=== PATIENT | female | born 1935 | race Caucasian/White ===

== ENCOUNTER 2016-08-31 06:35 | Inpatient (IN) | payer MEDICARE, OTHER ==
[2016-08-31] MEDS ORDERED: Furosemide 40 MG Tab PO ONE (07:28)
--- NOTE | 2016-08-31 07:32 | EDM.PDOC ---
ED HPI GENERAL MEDICAL PROBLEM - General Chief Complaint: Skin Complaint Stated Complaint: LT LEG EDEMA Time Seen by Provider: 08/31/16 07:00 Source of Information: Reports: Patient, Family History Limitations: Reports: No Limitations - History of Present Illness INITIAL COMMENTS - FREE TEXT/NARRATIVE: c/o eczema of legs with oozing on the L x 2w saw PCP 2w ago, labs done, hgb 8.9 which was down from 10.8 3y ago. Last colonoscopy 02/02 here was neg per pt. INR 3.0 2w ago. 2w ago told to use hand lotion on legs. No change in meds. Inc oozing of L ankle x 2d, sock and shoe are wet. Chronic pain in both feet and ankles. Had CVA 20y ago and has some weakness on L side. 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 here with dtr and son-in-law, pt and dtr from [place] does not know why she is anemic 2w ago had BUN/creat 20/1.8 (c/w 20/0.8 3y ago), TSH 5.8 and free T4 1.2 2w ago , A1C 6.6 2w ago h/o DVT 10y ago, on warfarin ever since - Related Data Allergies Allergy/AdvReac Type Severity Reaction Status Date / Time ciprofloxacin [From Cipro] Allergy Rash Verified 02/27/16 08:09 ciprofloxacin HCl Allergy Rash Verified 02/27/16 08:09 [From Cipro] Home Meds: Home Meds Hydrochlorothiazide 25 mg PO DAILY 02/16/13 [History] Levothyroxine Sodium [Synthroid] 75 mcg PO DAILY 02/16/13 [History] Lisinopril [Prinivil] 40 mg PO DAILY 02/16/13 [History] Multivitamin with Minerals [Multiple Vitamin] 1 tab PO DAILY 02/16/13 [History] Nebivolol [Bystolic] 10 mg PO BID 02/16/13 [History] Pravastatin [Pravachol] 40 mg PO BEDTIME 02/16/13 [History] Triamcinolone Acetonide [Kenalog 0.1% Crm] 15 gm .XX BID PRN 02/16/13 [History] Vit A/Vit C/Vit E/Zinc/Copper [Preservision Areds Softgel] 1 each PO DAILY 02/16 [History] Warfarin [Coumadin] 5 mg PO TUTHSA 02/16/13 [History] amLODIPine [Norvasc] 10 mg PO BID 02/16/13 [History] metFORMIN HCl [Glucophage] 500 mg PO QPM 02/16/13 [History] Fexofenadine [Kim] 60 mg PO DAILY PRN 02/09/14 [History] Warfarin [Coumadin] 2.5 mg PO SUMOWEFR 02/09/14 [History] Gabapentin [Neurontin] 100 mg PO BID PRN 02/27/16 [History] Ketotifen Fumarate [Zaditor] 1 drop OP ASDIRECTED PRN 02/27/16 [History] Calcium Carbonate [Calcium] 600 mg PO BID 02/28/16 [History] Past Medical History HEENT History: Reports: Cataract, Impaired Vision Cardiovascular History: Reports: Blood Clots/VTE/DVT, Heart Murmur, High Cholesterol, Hypertension Respiratory History: Reports: None Gastrointestinal History: Reports: Diverticulosis Genitourinary History: Reports: Urinary Incontinence, Other (See Below) Other Genitourinary History: A&P REPAIR, DYSFUNCTIONAL UTERINE BLEEDING. PERFUMER History: Reports: Dysfunctional Uterine Bleeding, Other OB/BYN History: II PARA II Musculoskeletal History: Reports: Osteoarthritis Neurological History: Reports: CVA Psychiatric History: Reports: None Endocrine/Metabolic History: Reports: Diabetes, Type II, Hypothyroidism, Obesity /BMI 30+ Hematologic History: Reports: Anemia Other Hematologic History: POST SURGICAL FROM [facility] Oncologic (Cancer) History: Reports: None Dermatologic History: Reports: Venous Stasis Dermatitis - Infectious Disease History Infectious Disease History: Reports: Chicken Pox, Measles, Mumps - Past Surgical History Head Surgeries/Procedures: Reports: None HEENT Surgical History: Reports: Cataract Surgery GI Surgical History: Reports: Appendectomy, Cholecystectomy, Colon, Colonoscopy , Hernia, Abdominal, Hernia Repair/Other Female Surgical History: Reports: D&C, Hysterectomy, Oophorectomy, Salpingo- Oophorectomy Social & Family History - Family History Other HEENT Family History: SEE HX - Tobacco Use Smoking Status *Q: Never Smoker Second Hand Smoke Exposure: No - Caffeine Use Caffeine Use: Reports: Coffee - Alcohol Use Days Per Week of Alcohol Use: 0 - Recreational Drug Use Recreational Drug Use: No ED ROS GENERAL - Review of Systems Review Of Systems: See Below Constitutional: Reports: No Symptoms HEENT: Reports: No Symptoms Respiratory: Reports: No Symptoms, Other (denies cough/sob, dtr confirms) Cardiovascular: Reports: No Symptoms Endocrine: Reports: No Symptoms GI/Abdominal: Reports: No Symptoms : Reports: No Symptoms Musculoskeletal: Reports: No Symptoms Skin: Reports: Other (LE edema) Neurological: Reports: No Symptoms Psychiatric: Reports: No Symptoms Hematologic/Lymphatic: Reports: No Symptoms Immunologic: Reports: No Symptoms ED EXAM, SKIN/RASH Exam: See Below Exam Limited By: No Limitations General Appearance: Alert, WD/WN, No Apparent Distress Ears: Hearing Grossly Normal Nose: Normal Inspection, Normal Mucosa, No Blood Throat/Mouth: Normal Inspection, No Airway Compromise Head: Atraumatic, Normocephalic Neck: Normal Inspection, Supple, Non-Tender, Full Range of Motion Respiratory/Chest: Other (slight b/l wheeze b/l, slight dyspnea, no rales, POLINA posteriorly with slight more prominent wheeze on auscultation) Cardiovascular: Other (2-3/6 MARQUITA at LLSB to LUSB, no carotid bruit, no s3/s4, no heave, no mccain murmur) GI/Abdominal: Soft, Non-Tender, No Distention, Other (obese, no CVAT b/l, no dull at flanks) Back Exam: Normal Inspection, Full Range of Motion Extremities: Other (woody edema with slight red from VSD up pre-tib 80% b/l, epidermal scale of LE to knees b/l d/t VSD, slight ooze from L lateral ankle, one drop of clear fluid noted, thinning of skin in 1 x 1 cm area at L ankle c/w with pressure point when sleeping, skin intact, trace DP pulse b/l, dec'd turgor UE with 0.5 sec tenting b/l) Neurological: Alert, Oriented, CN II-XII Intact, Normal Cognition Psychiatric: Normal Affect Course - Vital Signs Last Recorded V/S: Last Vital Signs Temp 36.6 C 08/31/16 06:35 Pulse 75 08/31/16 06:35 Resp 18 08/31/16 06:35 BP 166/67 H 08/31/16 06:35 Pulse Ox 97 08/31/16 06:35 Orthostatic Blood Pressure [ 164/67 Standing] Orthostatic Blood Pressure [ 150/64 Sitting] Orthostatic Blood Pressure [ 154/79 Supine] - Orders/Labs/Meds Orders: Active Orders 24 hr Category Date Time Status EKG Documentation Completion [RC] ASDIRECTED Care 08/31/16 07:27 Active Orthostatic Vital Signs [RC] ASDIRECTED Care 08/31/16 07:32 Active Chest 2V [CR] Stat Exams 08/31/16 07:26 Taken UA W/MICROSCOPIC [URIN] Stat Lab 08/31/16 07:26 Uncollected EKG 12 Lead [EK] Routine Ther 08/31/16 07:27 Ordered Labs: Laboratory Tests 08/31/16 08/31/16 08/31/16 Range/Units 07:45 07:45 07:45 WBC 4.8 (4.5-12.0) X10-3/uL RBC 3.45 (3.23-5.20) x10(6)uL Hgb 9.0 L (11.5-15.5) g/dL Hct 28.0 L (30.0-51.3) % MCV 81.2 (80-96) fL MCH 26.0 L (27.7-33.6) pg MCHC 32.0 L (32.2-35.4) g/dL RDW 18.8 H (11.5-15.5) % Plt Count 294 (125-369) X10(3)uL MPV 7.7 (7.4-10.4) fL Add Manual Diff Yes Neutrophils % (Manual) 68 (46-82) % Band Neutrophils % 1 (0-6) % Lymphocytes % (Manual) 18 (13-37) % Monocytes % (Manual) 13 H (4-12) % Anisocytosis Few PT 21.2 H (8.7-11.1) INR 2.07 H (0.89-1.13) Sodium 129 L (135-145) mmol/L Potassium 4.1 (3.5-5.3) mmol/L Chloride 96 L (100-110) mmol/L Carbon Dioxide 23 (23-29) mmol/L BUN 23 (8-23) mg/dL Creatinine 0.8 (0.6-1.3) mg/dL Est Cr Clr Drug Dosing 44.08 mL/min Estimated GFR (MDRD) > 60 (>60) BUN/Creatinine Ratio 28.8 H (9-20) Glucose 152 H (80-116) mg/dL Calcium 9.3 (8.6-10.2) mg/dL Total Bilirubin 0.6 (0.1-1.3) mg/dL AST 17 D (5-27) IU/L ALT 9 L D (14-26) IU/L Alkaline Phosphatase 68 (56-112) IU/L Troponin I (0.02-0.06) NG/ML C-Reactive Protein 2.3 H (0.0-1.0) mg/dL B-Natriuretic Peptide (0-100) pg/mL Total Protein 8.7 H (6.0-8.0) g/dL Albumin 4.3 (3.2-4.6) g/dL Globulin 4.4 g/dL Albumin/Globulin Ratio 1.0 08/31/16 08/31/16 Range/Units 07:45 07:45 WBC (4.5-12.0) X10-3/uL RBC (3.23-5.20) x10(6)uL Hgb (11.5-15.5) g/dL Hct (30.0-51.3) % MCV (80-96) fL MCH (27.7-33.6) pg MCHC (32.2-35.4) g/dL RDW (11.5-15.5) % Plt Count (125-369) X10(3)uL MPV (7.4-10.4) fL Add Manual Diff Neutrophils % (Manual) (46-82) % Band Neutrophils % (0-6) % Lymphocytes % (Manual) (13-37) % Monocytes % (Manual) (4-12) % Anisocytosis PT (8.7-11.1) INR (0.89-1.13) Sodium (135-145) mmol/L Potassium (3.5-5.3) mmol/L Chloride (100-110) mmol/L Carbon Dioxide (23-29) mmol/L BUN (8-23) mg/dL Creatinine (0.6-1.3) mg/dL Est Cr Clr Drug Dosing mL/min Estimated GFR (MDRD) (>60) BUN/Creatinine Ratio (9-20) Glucose (80-116) mg/dL Calcium (8.6-10.2) mg/dL Total Bilirubin (0.1-1.3) mg/dL AST (5-27) IU/L ALT (14-26) IU/L Alkaline Phosphatase (56-112) IU/L Troponin I < 0.01 L (0.02-0.06) NG/ML C-Reactive Protein (0.0-1.0) mg/dL B-Natriuretic Peptide 784 H (0-100) pg/mL Total Protein (6.0-8.0) g/dL Albumin (3.2-4.6) g/dL Globulin g/dL Albumin/Globulin Ratio Meds: Medications Discontinued Medications Generic Name Dose Route Start Last Admin Trade Name Freq PRN Reason Stop Dose Admin Furosemide 40 mg 08/31/16 07:28 08/31/16 09:22 Lasix PO 08/31/16 07:29 40 mg ONETIME ONE Administration - Re-Assessments/Exams Free Text/Narrative Re-Assessment/Exam: 08/31/16 09:33 last echo 03/03 with EF 60-65%, mild LV diastolic dysfunction, nl LV size. However now with cardiomegaly on CxR and EKG with G's in V1-V3. Inc'd BUN/creat 23/0.8. BN 784 without comparison. Inc'd RP 2.3 c/w LE cellulitis b/l. Na 129 down from 133. RDW 18.8. Pt reports she has lost 50 lbs several yrs ago. Initial PO 97% on RA, however pt was later 89% and O2 begun. Still dyspnea on O2 and using abd muscles to breath. Free Text/Narrative Re-Assessment/Exam: 08/31/16 09:43 d/w Dr Joseph who accepted pt in admission Departure - Departure Time of Disposition: 09:37 Disposition: Admitted As Inpatient 64 Condition: good Clinical Impression: Pulmonary edema, Venous stasis dermatitis of both lower extremities, Cellulitis of both lower extremities, Elevated brain natriuretic peptide (BNP) level, Elevated C-reactive protein (CRP), Microcytic hypochromic anemia, Acute on chronic renal failure, Hypoxia, Acute dyspnea, Anteroseptal myocardial infarction, Hyponatremia Acute exacerbation of congestive heart failure Qualifiers: Congestive heart failure type: combined Qualified Code(s): I50.43 - Acute on chronic combined systolic (congestive) and diastolic (congestive) heart failure - Discharge Information Forms: ED Department Discharge - My Orders Last 24 Hours: My Active Orders 08/31/16 07:26 Chest 2V [CR] Stat UA W/MICROSCOPIC [URIN] Stat 08/31/16 07:27 EKG Documentation Completion [RC] ASDIRECTED EKG 12 Lead [EK] Routine 08/31/16 07:32 Orthostatic Vital Signs [RC] ASDIRECTED - Assessment/Plan Last 24 Hours: My Active Orders 08/31/16 07:26 Chest 2V [CR] Stat UA W/MICROSCOPIC [URIN] Stat 08/31/16 07:27 EKG Documentation Completion [RC] ASDIRECTED EKG 12 Lead [EK] Routine 08/31/16 07:32 Orthostatic Vital Signs [RC] ASDIRECTED
[2016-08-31] MEDS ORDERED: cefTRIAXone 1 GM in Sodium Chloride 0.9% 100 ML IV SCH (10:00)
[2016-08-31] MEDS: Sodium Chloride 0.9% 250 ML IV SCH (10:30)
[2016-08-31] MEDS ORDERED: Sodium Chloride 0.9% 10 ML Syringe FLUSH PRN (13:31)
[2016-08-31] MEDS: Furosemide 40 MG Tab PO SCH (14:20)
--- NOTE | 2016-08-31 18:48 | PCM.HP ---
H&P History of Present Illness - General Date of Service: 08/31/16 Admit Problem/Dx: Admission Diagnosis/Problem Admission Diagnosis/Problem Heart failure Source of Information: Patient, Old Records History Limitations: Reports: No Limitations - History of Present Illness Initial Comments - Free Text/Narative: 81-year-old female brought to because a swelling of the legs and weeping ulcers , especially on the left. Just been seen by a CH[employer]EN [employer] BUTCHER in a local clinic where she was advised to use hydrocortisone which has not helped. The symptoms are going on for just about a week. There's been no fever or chills. In the emergency room, she was noted to be slightly hypoxic, and a chest x-ray revealed some pulmonary edema and features suggestive suggestive of congestive heart failure. She's been admitted for diuresis, wound management, elevation and further disposition. She lives by herself. Notably,she has a history of DVTs and uses [facility]. She has hypertension that is well-controlled. She had a stroke 20 years ago with mild residual symptoms on the left side. Denies any chest pain fever chills or cough. Left Lower Leg Pain Score (Numeric/FACES): 0 - Related Data Allergies/Adverse Reactions: Allergies Allergy/AdvReac Type Severity Reaction Status Date / Time ciprofloxacin [From Cipro] Allergy Rash Verified 02/27/16 08:09 ciprofloxacin HCl Allergy Rash Verified 02/27/16 08:09 [From Cipro] Home Medications: Home Meds Hydrochlorothiazide 25 mg PO DAILY 02/16/13 [History] Levothyroxine Sodium [Synthroid] 75 mcg PO DAILY 02/16/13 [History] Lisinopril [Prinivil] 40 mg PO DAILY 02/16/13 [History] Multivitamin with Minerals [Multiple Vitamin] 1 tab PO DAILY 02/16/13 [History] Nebivolol [Bystolic] 10 mg PO BID 02/16/13 [History] Pravastatin [Pravachol] 40 mg PO BEDTIME 02/16/13 [History] Triamcinolone Acetonide [Kenalog 0.1% Crm] 15 gm .XX BID PRN 02/16/13 [History] Vit A/Vit C/Vit E/Zinc/Copper [Preservision Areds Softgel] 1 each PO DAILY 02/16 [History] Warfarin [Coumadin] 5 mg PO TUTHSA 02/16/13 [History] amLODIPine [Norvasc] 10 mg PO BID 02/16/13 [History] metFORMIN HCl [Glucophage] 500 mg PO QPM 02/16/13 [History] Fexofenadine [Kim] 60 mg PO DAILY PRN 02/09/14 [History] Warfarin [Coumadin] 2.5 mg PO SUMOWEFR 02/09/14 [History] Gabapentin [Neurontin] 100 mg PO BID PRN 02/27/16 [History] Ketotifen Fumarate [Zaditor] 1 drop OP ASDIRECTED PRN 02/27/16 [History] Calcium Carbonate [Calcium] 600 mg PO BID 02/28/16 [History] Past Medical History HEENT History: Reports: Cataract, Impaired Vision Cardiovascular History: Reports: Blood Clots/VTE/DVT, Heart Failure, Heart Murmur, High Cholesterol, Hypertension Respiratory History: Reports: None Gastrointestinal History: Reports: Diverticulosis Genitourinary History: Reports: Urinary Incontinence, Other (See Below) Other Genitourinary History: A&P REPAIR, DYSFUNCTIONAL UTERINE BLEEDING. 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: Dysfunctional Uterine Bleeding, Other OB/BYN History: II PARA II Musculoskeletal History: Reports: Osteoarthritis Neurological History: Reports: CVA Psychiatric History: Reports: None Endocrine/Metabolic History: Reports: Diabetes, Type II, Hypothyroidism, Obesity /BMI 30+ Hematologic History: Reports: Anemia Other Hematologic History: POST SURGICAL FROM [facility] Immunologic History: Reports: None Oncologic (Cancer) History: Reports: None Dermatologic History: Reports: Venous Stasis Dermatitis - Infectious Disease History Infectious Disease History: Reports: Chicken Pox, Measles, Mumps - Past Surgical History Head Surgeries/Procedures: Reports: None HEENT Surgical History: Reports: Cataract Surgery GI Surgical History: Reports: Appendectomy, Cholecystectomy, Colon, Colonoscopy , Hernia, Abdominal, Hernia Repair/Other Female Surgical History: Reports: D&C, Hysterectomy, Oophorectomy, Salpingo- Oophorectomy Social & Family History - Family History Other HEENT Family History: SEE HX - Tobacco Use Smoking Status *Q: Former Smoker Years of Tobacco use: 5 Packs/Tins Daily: 0.2 Used Tobacco, but Quit: Yes Month Tobacco Last Used: 04/20/1969 Second Hand Smoke Exposure: No - Caffeine Use Caffeine Use: Reports: Coffee, Soda - Alcohol Use Days Per Week of Alcohol Use: 0 - Recreational Drug Use Recreational Drug Use: No H&P Review of Systems - Review of Systems: Review Of Systems: ROS reveals no pertinent complaints other than HPI. Exam - Exam Exam: See Below - Vital Signs Vital Signs: Last Vital Signs Temp 98.7 F 08/31/16 15:40 Pulse 65 08/31/16 15:40 Resp 18 08/31/16 15:40 BP 124/58 L 08/31/16 15:40 Pulse Ox 97 08/31/16 15:40 Weight: 93.071 kg - Exam General: Alert, Oriented, 4 HEENT: PERRLA, Hearing Intact, Mucosa Moist & [place], Nares Patent, Normal Nasal Septum, Posterior Pharynx Clear, Conjunctiva Clear, EOMI, EACs Clear, TMs Clear Neck: Supple, Trachea Midline, 2 Lungs: Clear to Auscultation, Normal Respiratory Effort Cardiovascular: Regular Rate, Regular Rhythm, Systolic Murmur Abdomen: Normal Bowel Sounds, Soft (Female) Exam: Normal External Exam, Normal Speculum Exam, Normal Bimanual Exam Rectal (Female) Exam: Deferred Back Exam: Normal Inspection, Full Range of Motion, NT Extremities: Edema Skin: Other (venous stasis dermatitis) Neurological: Cranial Nerves Intact, Reflexes Equal Bilateral Neuro Extensive - Mental Status: Alert, Oriented x3, Normal Mood/Affect, Normal Cognition Neuro Extensive - Motor, Sensory, Reflexes: CN II-XII Intact, Normal Gait, Normal Reflexes Psychiatric: Alert, Normal Affect, Normal Mood - Patient Data Lab Results last 24 hrs: Laboratory Results - last 24 hr 08/31/16 08/31/16 08/31/16 Range/Units 11:20 11:35 17:26 POC Glucose 144 H 112 (80-116) mg/dL Urine Color Yellow (YELLOW) Urine Appearance Clear (CLEAR) Urine pH 6.0 (5.0-6.5) Ur Specific [place] 1.010 (1.010-1.025) Urine Protein Negative (NEGATIVE) mg/dL Urine Glucose (UA) Normal (NEGATIVE) mg/dL Urine Ketones Negative (NEGATIVE) mg/dL Urine Occult Blood Negative (NEGATIVE) Urine Nitrite Negative (NEGATIVE) Urine Bilirubin Negative (NEGATIVE) Urine Urobilinogen Normal (NEGATIVE) mg/dL Ur Leukocyte Esterase Negative (NEGATIVE) Urine RBC Not seen (0) Urine WBC 0-5 (0) Ur Squamous Epith Cells Few H (NS,R,O) Urine Bacteria Not seen (NS) Result Diagrams: 08/31/16 07:45 08/31/16 07:45 EKG INTERPRETATION Rhythm: NSR *Q Meaningful Use (ADM) - VTE *Q VTE Criteria *Q: - Stroke *Q Stroke Criteria *Q: - AMI *Q AMI Criteria *Q: - Problem List (1) CHF (congestive heart failure) SNOMED Code(s): 83553164 ICD Code: I50.9 - HEART FAILURE, UNSPECIFIED Status: Acute Current Visit : Yes Qualifiers: Congestive heart failure type: diastolic Congestive heart failure chronicity: acute on chronic Qualified Code(s): I50.33 - Acute on chronic diastolic (congestive) heart failure (2) Microcytic hypochromic anemia SNOMED Code(s): 10002846 ICD Code: D50.9 - IRON DEFICIENCY ANEMIA, UNSPECIFIED Status: Acute Current Visit: Yes (3) Venous stasis dermatitis of both lower extremities SNOMED Code(s): 33920746 ICD Code: I87.2 - VENOUS INSUFFICIENCY (CHRONIC) (PERIPHERAL) Status: Acute Current Visit: Yes (4) H/O deep venous thrombosis SNOMED Code(s): 554478763 ICD Code: Z86.718 - PERSONAL HISTORY OF OTHER VENOUS THROMBOSIS AND EMBOLISM Status: Chronic Current Visit: Yes (5) retirement (current) use of anticoagulants SNOMED Code(s): 441013258 ICD Code: Z79.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 Status: Acute Current Visit: Yes (6) Diabetes type 2, controlled SNOMED Code(s): 96441161 ICD Code: E11.9 - TYPE 2 DIABETES MELLITUS WITHOUT COMPLICATIONS Status: Acute Current Visit: Yes Qualifiers: Diabetes mellitus complication status: without complication Diabetes mellitus residential insulin use: with residential use Qualified Code(s): E11.9 - Type 2 diabetes mellitus without complications; Z79.4 - 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 (7) HTN (hypertension) SNOMED Code(s): 32691250 ICD Code: I10 - ESSENTIAL (PRIMARY) HYPERTENSION Status: Acute Current Visit: Yes Qualifiers: Hypertension type: essential hypertension Qualified Code(s): I10 - Essential (primary) hypertension Problem List Initiated/Reviewed/Updated: Yes Orders Last 24hrs: Active Orders 24 hr Category Date Time Status Patient Status [ADT] Routine ADT 08/31/16 09:44 Active Cardiac Monitoring [RC] 08,16,00 Care 08/31/16 09:57 Active Communication Order [RC] ROUTINE Care 08/31/16 09:55 Active Daily Weight [Height and Weight] [RC] 06 Care 08/31/16 09:49 Active EKG Documentation Completion [RC] DAILY Care 08/31/16 09:53 Active Glucose [Blood Glucose Check, Bedside] [RC] 07,1130, Care 08/31/16 09:50 Active 1730,21 Intake and Output [RC] 06,14,22 Care 08/31/16 09:50 Active Oxygen Therapy Adult [Oxygen Therapy] [RC] .PRN Care 08/31/16 09:49 Active VTE/DVT Education [RC] Per Unit Routine Care 08/31/16 09:44 Active Vital Signs [RC] 04,08,12,16,20,00 Care 08/31/16 09:44 Active OT Evaluation and Treatment [CONS] Routine Cons 08/31/16 18:43 Active PT Evaluation and Treatment [CONS] Routine Cons 08/31/16 18:43 Active Consistent Carbohydrate Diet [DIET] Diet 08/31/16 Dinner Active Echo Comp wo Cont [US] Routine Exams 09/01/16 09:52 Ordered B-TYPE NATRIURETIC PEPTIDE,BNP [CHEM] AM Lab 09/01/16 05:11 Ordered BASIC METABOLIC PANEL,BMP [CHEM] DAILY Lab 09/01/16 06:00 Ordered BASIC METABOLIC PANEL,BMP [CHEM] DAILY Lab 09/02/16 06:00 Ordered BASIC METABOLIC PANEL,BMP [CHEM] DAILY Lab 09/03/16 06:00 Ordered CBC WITH AUTO DIFF [HEME] DAILY Lab 09/01/16 06:00 Ordered CBC WITH AUTO DIFF [HEME] DAILY Lab 09/02/16 06:00 Ordered CBC WITH AUTO DIFF [HEME] DAILY Lab 09/03/16 06:00 Ordered TROPONIN I [CHEM] Routine Lab 09/01/16 06:00 Ordered Furosemide [Lasix] Med 08/31/16 14:00 Active 40 mg PO BIDDIURETIC Sodium Chloride 0.9% [Normal Saline] 250 ml Med 08/31/16 11:00 Active IV ASDIRECTED Sodium Chloride 0.9% [Saline Flush] Med 08/31/16 13:31 Active 10 ml FLUSH ASDIRECTED PRN cefTRIAXone [Rocephin] 1 gm Med 08/31/16 10:00 Active Sodium Chloride 0.9% [Normal Saline] 100 ml IV Q24H Resuscitation Status Routine Resus Stat 08/31/16 09:44 Ordered EKG 12 Lead [EK] DAILY Ther 08/31/16 09:52 Ordered Medication Orders Furosemide (Lasix) 40 mg PO BIDDIURETIC [place]O Last Admin: 08/31/16 14:20 Dose: 40 mg Ceftriaxone Sodium 1 gm/ (Sodium Chloride) 100 mls @ 200 mls/hr IV Q24H [place]O Last Admin: 08/31/16 10:30 Dose: 200 mls/hr Sodium Chloride (Normal Saline) 250 mls @ 100 mls/hr IV ASDIRECTED [facility] Last Admin: 08/31/16 10:30 Dose: 100 mls/hr Sodium Chloride (Saline Flush) 10 ml FLUSH ASDIRECTED PRN PRN Reason: flush med Assessment/Plan Comment:: The wounds were then wrapped, which would promote edema to improve. We'll resume her home medications, but I do agree with Lasix which has significantly helped since she was admitted. I will plan to repeat basic metabolic profile a BNP in the morning and PT and OT to see her for further disposition. I anticipate a brief hospital stay
[2016-08-31] MEDS ORDERED: Acetaminophen 325 MG Tab PO PRN (21:47)
[2016-09-01 08:36] VITALS: BP 157/69
[2016-09-01] MEDS: Furosemide 40 MG Tab PO SCH (08:37)
[2016-09-01] MEDS ORDERED: cefTRIAXone 1,000 MG in Sodium Chloride 0.9% 50 ML IV SCH (10:00)
[2016-09-01] MEDS: Sodium Chloride 0.9% 250 ML IV SCH (10:07)
--- NOTE | 2016-09-01 12:05 | CR ---
INDICATION: Wheezing, question pulmonary edema. CHEST: AP and lateral views of the chest were obtained in a wheelchair 2016. No comparisons were available. Upper lung field pulmonary vasculature is prominent. Interstitial markings are prominent. Findings suggest CHF with interstitial lung edema. No definite acute pulmonary edema was seen, however. The aorta is tortuous with calcification in the arch. Diminished bone density is noted, compatible with osteoporosis. Prominent AP diameter and flattening of diaphragm leaves with hyperaeration are compatible with COPD. Right hemidiaphragm is somewhat elevated, but this most likely is anatomic. There is some pleural thickening on the right compatible with minimal pleural fluid. Blunting of the left posterior sulcus suggests minimal fluid there. A mild dextroconcave scoliosis at the lower thoracic spine is noted also. IMPRESSION: 1. CHF with interstitial lung edema. No definite evidence of pneumonia. 2. COPD. 3. ASHD with cardiomegaly. 4. Osteoporosis, scoliosis. 5. Somewhat heavy markings at the lower lung gaspar make it difficult to exclude minimal patchy bronchopneumonia additionally, although this appearance could possibly be on the basis of minimal patchy alveolar lung edema - acute pulmonary edema. The typical batwing appearance of acute pulmonary edema is not visualized in this patient at this time. MTDD
--- NOTE | 2016-09-01 12:06 | PN ---
DATE SEEN: 09/01/2016 REASON FOR VISIT: CHF. HISTORY OF PRESENT ILLNESS: An 81-year-old female, who was brought in because of a mild CHF exacerbation, lymphedema, and leg stasis dermatitis. She has lost 5 pounds in the last 24 hours with diuresis. Feels good this morning. Denies fever or chills. Still has pain in both legs and a rash. PAST MEDICAL HISTORY: Anemia, hypertension, type 2 diabetes, CHF, history of DVTs. REVIEW OF SYSTEMS: No chest pain today. No fever or chills. No shortness of breath. PHYSICAL EXAMINATION: VITAL SIGNS: Blood pressure is 157/69, pulse is 68, and temp 98.6. ENT: Negative. CHEST: Clear. CARDIOVASCULAR: Heart murmur 2/6. EXTREMITIES: No peripheral edema. There is venous stasis dermatitis. They are tender to palpation. MENTAL STATUS: Alert. LABORATORY DATA: Hemoglobin today is 8.8. Sodium 134, creatinine is normal. Troponin is less than 0.01 and BNP is 612. IMPRESSION: 1. Mild to moderate congestive heart failure exacerbation. 2. Venous stasis dermatitis of the lower extremities. 3. Hypertension. 4. Type 2 diabetes. 5. Anemia that is chronic. PLAN: My plan is to discharge her home on Lasix 20 mg once a day, and I would like her to see Dr. Fink before the week is over. I do not feel that she has an infection, given no white cell count, fever, and no overt purulent drainage. /[id number] DIANELYS/ANNABEL
--- NOTE | 2016-09-02 03:59 | DISCH ---
DISCHARGE DATE: 09/01/2016 REASON FOR ADMISSION: Congestive heart failure exacerbation, hypertension, type 2 diabetes, venous stasis dermatitis. DISCHARGE DIAGNOSES: Congestive heart failure exacerbation, hypertension, type 2 diabetes, venous stasis dermatitis. BRIEF HISTORY AND HOSPITAL COURSE: An 81-year-old female admitted because of leg swelling, weeping, rash, and edema. She also had a chest x-ray that showed mild pulmonary edema. BNP was 754. She was started on Lasix 40 mg b.i.d. She diuresed significantly and lost 5 pounds in 24 hours. She feels better. The swelling in the legs decreased remarkably. She was discharged today on the on Lasix 40 mg once a day. She is advised to see Dr. Fink before the end of the week, elevate the legs, return to the ED with any worsening of symptoms. Please note that I spent more than 35 minutes in the discharge of this patient. /[id number] DIANELYS/ANNABEL
== END 2016-09-01 11:30 | disposition home or self-care (01) | DRG 299 ==
LOC: FB.ED 06:35 → FB.MS 09:41
PROVIDERS: ADMIT Family Medicine; ATTEND Family Medicine
DX: I50.43 Acute on chronic combined systolic (congestive) and diastolic (congestive) heart failure (principal); L03.115 Cellulitis of right lower limb; L03.116 Cellulitis of left lower limb; N17.9 Acute kidney failure, unspecified; N18.9 Chronic kidney disease, unspecified; R09.02 Hypoxemia; E87.1 Hypo-osmolality and hyponatremia; I87.2 Venous insufficiency (chronic) (peripheral); I50.33 Acute on chronic diastolic (congestive) heart failure; I69.354 Hemiplegia and hemiparesis following cerebral infarction affecting left non-dominant side; I11.0 Hypertensive heart disease with heart failure; E11.9 Type 2 diabetes mellitus without complications; Z79.4 Long term (current) use of insulin; Z86.718 Personal history of other venous thrombosis and embolism; Z79.01 Long term (current) use of anticoagulants; Z79.84 Long term (current) use of oral hypoglycemic drugs; M19.90 Unspecified osteoarthritis, unspecified site; E03.9 Hypothyroidism, unspecified; E78.5 Hyperlipidemia, unspecified; Z87.891 Personal history of nicotine dependence; D64.9 Anemia, unspecified
CPT/HCPCS: 36415; 71020; 80053; 83880; 84484; 85025; 85610; 86140; 93005; 99285 ×2; A9270; 80048; 81001; 82962; J0696; J7030; J7050

== ENCOUNTER 2017-04-28 12:29 | Inpatient (IN) | payer MEDICARE, OTHER ==
--- NOTE | 2017-04-28 12:30 | EDM.PDOC ---
ED HPI GENERAL MEDICAL PROBLEM - General Chief Complaint: General Stated Complaint: FALL Time Seen by Provider: 04/28/17 12:10 Source of Information: Reports: Patient, Old Records History Limitations: Reports: No Limitations - History of Present Illness INITIAL COMMENTS - FREE TEXT/NARRATIVE: Cara comes to [facility] ED by EMS following an incident at home this am when she attempted to get off the comode and fell backward back onto the comode, to weak to resume activity. She used her LifeLine to summon help and arrived at the ED with stable VS, and emotionally shaken by the incident. 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 She has a son and daughter in law who live in the area. - Related Data Allergies Allergy/AdvReac Type Severity Reaction Status Date / Time ciprofloxacin [From Cipro] Allergy Rash Verified 09/01/16 10:04 ciprofloxacin HCl Allergy Rash Verified 09/01/16 10:04 [From Cipro] Home Meds: Home Meds Hydrochlorothiazide 25 mg PO DAILY 02/16/13 [History] Lisinopril [Prinivil] 40 mg PO DAILY 02/16/13 [History] Multivitamin with Minerals [Multiple Vitamin] 1 tab PO DAILY 02/16/13 [History] Nebivolol [Bystolic] 10 mg PO BID 02/16/13 [History] Pravastatin [Pravachol] 40 mg PO BEDTIME 02/16/13 [History] Triamcinolone Acetonide [Kenalog 0.1% Crm] 15 gm .XX BID PRN 02/16/13 [History] Vit A/Vit C/Vit E/Zinc/Copper [Preservision Areds Softgel] 1 each PO PCLUNCH [History] Warfarin [Coumadin] 5 mg PO SUTUTH 02/16/13 [History] amLODIPine [Norvasc] 10 mg PO PCLUNCH 02/16/13 [History] metFORMIN HCl [Glucophage] 500 mg PO QPM 02/16/13 [History] Fexofenadine [Kim] 60 mg PO DAILY PRN 02/09/14 [History] Warfarin [Coumadin] 2.5 mg PO MOWEFRSA 02/09/14 [History] Gabapentin [Neurontin] 100 mg PO BID PRN 02/27/16 [History] Ketotifen Fumarate [Zaditor] 1 drop EYEBOTH BID PRN 02/27/16 [History] Calcium Carbonate [Calcium] 600 mg PO BID@12,18 02/28/16 [History] Furosemide [Lasix] 40 mg PO DAILY #15 tablet 09/01/16 [Rx] Levothyroxine [Synthroid] 88 mcg PO ACBREAKFAST 09/01/16 [History] Past Medical History HEENT History: Reports: Cataract, Impaired Vision Cardiovascular History: Reports: Blood Clots/VTE/DVT, Heart Failure, Heart Murmur, High Cholesterol, Hypertension Respiratory History: Reports: None Gastrointestinal History: Reports: Diverticulosis Genitourinary History: Reports: Urinary Incontinence, Other (See Below) Other Genitourinary History: A&P REPAIR, DYSFUNCTIONAL UTERINE BLEEDING. INSURANCE ATTORNEY History: Reports: Dysfunctional Uterine Bleeding, Other OB/BYN History: II PARA II Musculoskeletal History: Reports: Osteoarthritis Neurological History: Reports: CVA Psychiatric History: Reports: None Endocrine/Metabolic History: Reports: Diabetes, Type II, Hypothyroidism, Obesity /BMI 30+ Hematologic History: Reports: Anemia Other Hematologic History: POST SURGICAL FROM DUB Immunologic History: Reports: None Oncologic (Cancer) History: Reports: None Dermatologic History: Reports: Venous Stasis Dermatitis - Infectious Disease History Infectious Disease History: Reports: Chicken Pox, Measles, Mumps - Past Surgical History Head Surgeries/Procedures: Reports: None HEENT Surgical History: Reports: Cataract Surgery GI Surgical History: Reports: Appendectomy, Cholecystectomy, Colon, Colonoscopy , Hernia, Abdominal, Hernia Repair/Other Female Surgical History: Reports: D&C, Hysterectomy, Oophorectomy, Salpingo- Oophorectomy Social & Family History - Family History Other HEENT Family History: SEE HX - Tobacco Use Smoking Status *Q: Former Smoker Years of Tobacco use: 5 Packs/Tins Daily: 0.2 Used Tobacco, but Quit: Yes Month Tobacco Last Used: 04/20/1969 Second Hand Smoke Exposure: No - Caffeine Use Caffeine Use: Reports: Coffee, Soda - Alcohol Use Days Per Week of Alcohol Use: 0 - Recreational Drug Use Recreational Drug Use: No ED ROS GENERAL - Review of Systems Review Of Systems: See Below Constitutional: Reports: Weakness, Fatigue HEENT: Reports: No Symptoms Respiratory: Reports: No Symptoms Cardiovascular: Reports: No Symptoms Endocrine: Reports: Fatigue GI/Abdominal: Reports: No Symptoms : Reports: No Symptoms Musculoskeletal: Reports: Leg Pain (both legs) Skin: Reports: Other (chronic swelling in both legs) Neurological: Reports: Difficulty Walking, Weakness Psychiatric: Reports: Anxiety Hematologic/Lymphatic: Reports: No Symptoms Immunologic: Reports: No Symptoms ED EXAM, GENERAL - Physical Exam Exam: See Below Exam Limited By: No Limitations General Appearance: Alert, WD/WN, No Apparent Distress, Anxious Eye Exam: Bilateral Eye: EOMI, Normal Inspection, PERRL Ears: Normal External Exam, Hearing Grossly Normal Nose: Normal Inspection Throat/Mouth: Normal Inspection, Normal Oropharynx, Normal Voice, No Airway Compromise Head: Atraumatic, Normocephalic Neck: Normal Inspection, Supple, Non-Tender, Full Range of Motion Respiratory/Chest: No Respiratory Distress, No Accessory Muscle Use, Chest Non- Tender, Decreased Breath Sounds, Rales (basilar) Cardiovascular: Regular Rate, Rhythm, No JVD GI/Abdominal: Normal Bowel Sounds, Soft, Non-Tender, No Organomegaly, No Distention, No Mass (Female) Exam: Deferred Rectal (Female) Exam: Deferred Extremities: Normal Inspection, Normal Range of Motion, Non-Tender, Pedal Edema (brawny edema of both legs to upper calves) Neurological: Alert, Oriented, CN II-XII Intact, Normal Cognition, Other ( weakness, suggestive of deconditioning) Psychiatric: Anxious Skin Exam: Intact, Other (chronic edema with stasis changes) Lymphatic: No Adenopathy Course - Vital Signs Text/Narrative:: Following assessment at the [facility] ED, screening labs included: Hgb 8.4 gm, WBC 4, 000, plts nl; Na 133, K 3.9; BUN 37, Cr 1.4, GFR 36; HgbA1c 7.2%; nonFBS 216; BNP 8130 today (612 on 08/30/16); chest x ray: cardiac enlargement with some interstitial edema; case discussed with Hospitalist and she will be admitted. Last Recorded V/S: Last Vital Signs Temp 36.7 C 04/28/17 11:45 Pulse 73 04/28/17 11:45 Resp 16 04/28/17 11:45 BP 104/41 L 04/28/17 11:45 Pulse Ox 97 04/28/17 11:45 - Orders/Labs/Meds Orders: Active Orders 24 hr Category Date Time Status Chest 1V Frontal [CR] Stat Exams 04/28/17 13:29 Taken Labs: Laboratory Tests 04/28/17 04/28/17 04/28/17 Range/Units 12:30 12:30 12:30 WBC 4.0 L (4.5-12.0) X10-3/uL RBC 3.20 L (3.23-5.20) x10(6)uL Hgb 8.4 L (11.5-15.5) g/dL Hct 26.3 L (30.0-51.3) % MCV 82.0 (80-96) fL MCH 26.2 L (27.7-33.6) pg MCHC 31.9 L (32.2-35.4) g/dL RDW 15.4 (11.5-15.5) % Plt Count 197 (125-369) X10(3)uL MPV 7.6 (7.4-10.4) fL Neut % (Auto) 63.5 (46-82) % Lymph % (Auto) 16.1 (13-37) % [place] % (Auto) 19.3 H (4-12) % Eos % (Auto) 1 (1.0-5.0) % Baso % (Auto) 0 (0-2) % Neut # (Auto) 2.6 (1.6-8.3) # Lymph # (Auto) 0.6 (0.6-5.0) # [place] # (Auto) 0.8 (0.0-1.3) # Eos # (Auto) 0.0 (0.0-0.8) # Baso # (Auto) 0.0 (0.0-0.2) # PT 21.1 H (8.7-11.1) INR 2.06 H (0.89-1.13) Sodium 133 L (135-145) mmol/L Potassium 3.9 (3.5-5.3) mmol/L Chloride 97 L (100-110) mmol/L Carbon Dioxide 26 (21-32) mmol/L BUN 37 H (7-18) mg/dL Creatinine 1.4 H (0.55-1.02) mg/dL Est Cr Clr Drug Dosing 26.29 mL/min Estimated GFR (MDRD) 36 L (>60) BUN/Creatinine Ratio 26.4 H (9-20) Glucose 216 H (80-116) mg/dL Hemoglobin A1c (4.5-6.2) % Calcium 8.7 (8.6-10.2) mg/dL Total Bilirubin 0.5 (0.1-1.3) mg/dL AST 30 H (5-25) IU/L ALT 18 (12-36) U/L Alkaline Phosphatase 62 (56-112) IU/L NT-Pro-B Natriuret Pep (<=450) pg/mL Total Protein 7.1 (6.0-8.0) g/dL Albumin 2.8 L (3.2-4.6) g/dL Globulin 4.3 g/dL Albumin/Globulin Ratio 0.7 Urine Color (YELLOW) Urine Appearance (CLEAR) Urine pH (5.0-6.5) Ur Specific [place] (1.010-1.025) Urine Protein (NEGATIVE) mg/dL Urine Glucose (UA) (NEGATIVE) mg/dL Urine Ketones (NEGATIVE) mg/dL Urine Occult Blood (NEGATIVE) Urine Nitrite (NEGATIVE) Urine Bilirubin (NEGATIVE) Urine Urobilinogen (NEGATIVE) mg/dL Ur Leukocyte Esterase (NEGATIVE) Urine RBC (0) Urine WBC (0) Ur Squamous Epith Cells (NS,R,O) Urine Bacteria (NS) Fine Granular Casts (NS) Coarse Granular Casts (NS) 04/28/17 04/28/17 04/28/17 Range/Units 12:30 12:30 13:26 WBC (4.5-12.0) X10-3/uL RBC (3.23-5.20) x10(6)uL Hgb (11.5-15.5) g/dL Hct (30.0-51.3) % MCV (80-96) fL MCH (27.7-33.6) pg MCHC (32.2-35.4) g/dL RDW (11.5-15.5) % Plt Count (125-369) X10(3)uL MPV (7.4-10.4) fL Neut % (Auto) (46-82) % Lymph % (Auto) (13-37) % [place] % (Auto) (4-12) % Eos % (Auto) (1.0-5.0) % Baso % (Auto) (0-2) % Neut # (Auto) (1.6-8.3) # Lymph # (Auto) (0.6-5.0) # [place] # (Auto) (0.0-1.3) # Eos # (Auto) (0.0-0.8) # Baso # (Auto) (0.0-0.2) # PT (8.7-11.1) INR (0.89-1.13) Sodium (135-145) mmol/L Potassium (3.5-5.3) mmol/L Chloride (100-110) mmol/L Carbon Dioxide (21-32) mmol/L BUN (7-18) mg/dL Creatinine (0.55-1.02) mg/dL Est Cr Clr Drug Dosing mL/min Estimated GFR (MDRD) (>60) BUN/Creatinine Ratio (9-20) Glucose (80-116) mg/dL Hemoglobin A1c 7.2 H (4.5-6.2) % Calcium (8.6-10.2) mg/dL Total Bilirubin (0.1-1.3) mg/dL AST (5-25) IU/L ALT (12-36) U/L Alkaline Phosphatase (56-112) IU/L NT-Pro-B Natriuret Pep 8130 H* (<=450) pg/mL Total Protein (6.0-8.0) g/dL Albumin (3.2-4.6) g/dL Globulin g/dL Albumin/Globulin Ratio Urine Color Yellow (YELLOW) Urine Appearance Clear (CLEAR) Urine pH 5.0 (5.0-6.5) Ur Specific [place] 1.010 (1.010-1.025) Urine Protein Negative (NEGATIVE) mg/dL Urine Glucose (UA) Normal (NEGATIVE) mg/dL Urine Ketones Negative (NEGATIVE) mg/dL Urine Occult Blood Negative (NEGATIVE) Urine Nitrite Negative (NEGATIVE) Urine Bilirubin Negative (NEGATIVE) Urine Urobilinogen Normal (NEGATIVE) mg/dL Ur Leukocyte Esterase Negative (NEGATIVE) Urine RBC 0-5 (0) Urine WBC 0-5 (0) Ur Squamous Epith Cells Few H (NS,R,O) Urine Bacteria Moderate H (NS) Fine Granular Casts Few H (NS) Coarse Granular Casts Few H (NS) Departure - Departure Time of Disposition: 14:12 Disposition: Admitted As Inpatient 64 Condition: Fair Clinical Impression: CHF, Congestive heart failure, Weakness of both lower extremities - Discharge Information Referrals: Samantha Foster BUSINESS INTELLIGENCE REPORTING ANALYST [Primary Care Provider] - Forms: ED Department Discharge - Problem List & Annotations (1) CHF, Congestive heart failure SNOMED Code(s): 69506573 Code(s): I50.9 - HEART FAILURE, UNSPECIFIED Status: Acute Current Visit: Yes Annotation/Comment:: Admit to In Pt - Problem List Review Problem List Initiated/Reviewed/Updated: Yes - My Orders Last 24 Hours: My Active Orders 04/28/17 13:29 Chest 1V Frontal [CR] Stat - Assessment/Plan Last 24 Hours: My Active Orders 04/28/17 13:29 Chest 1V Frontal [CR] Stat Plan: Follow up with PCP.
[2017-04-28] MEDS ORDERED: Zolpidem 5 MG Tab PO PRN (14:58)
[2017-04-28] MEDS ORDERED: Sodium Chloride 0.9% 250 ML IV SCH (16:30)
[2017-04-28] MEDS ORDERED: Furosemide 20 MG/2 ML VIAL IVPUSH ONE (16:31)
[2017-04-28] MEDS ORDERED: LORazepam 0.5 MG Tab PO PRN (16:33)
--- NOTE | 2017-04-28 16:46 | PCM.HP ---
H&P History of Present Illness - General Date of Service: 04/28/17 Source of Information: Patient, Old Records, Provider History Limitations: Reports: No Limitations - History of Present Illness Initial Comments - Free Text/Narative: Patient patient presents to the ER via ambulance after she went to the restroom using her walker and while trying to get off the commode she had weakness in her legs and fell back down on the commode. She denied any loss of consciousness. She denies any lightheadedness or vertigo. She simply did not have the strength in her legs to get back up. Prior to going to the bathroom she had went to the kitchen after getting up from bed to have a couple pieces of toast and coffee as she was not feeling well at that time either. She lives alone at home but does have [facility]. She's had numerous falls in the past and is scared to be home alone any longer. She denies any pain or injury. She tells me she has not been febrile, denies any ill contacts or recent medication changes. She denies any nausea or vomiting. Denies increase or decrease in oral intake. She denies any chest pain or pressure. She's had no abdominal pain or flank pain loose stools (did have a BM this morning) black or tarry stools other than her usual with iron intake, dysuria, malodorous urine, nor hematuria. She has not noted any epistaxis, petechiae or purpura, unusual joint swelling warmth or tenderness. She has not been wearing her RADHA stockings. She has noted increase in lower extremity edema with warmth. No weeping or oozing. Her PCP is Dr. Aleks Castaneda - Related Data Allergies/Adverse Reactions: Allergies Allergy/AdvReac Type Severity Reaction Status Date / Time ciprofloxacin [From Cipro] Allergy Rash Verified 09/01/16 10:04 ciprofloxacin HCl Allergy Rash Verified 09/01/16 10:04 [From Cipro] Home Medications: Home Meds Hydrochlorothiazide 25 mg PO DAILY 02/16/13 [History] Lisinopril [Prinivil] 40 mg PO DAILY 02/16/13 [History] Multivitamin with Minerals [Multiple Vitamin] 2 tab PO DAILY 02/16/13 [History] Nebivolol [Bystolic] 10 mg PO BID 02/16/13 [History] Pravastatin [Pravachol] 40 mg PO BEDTIME 10/30/13 [History] Triamcinolone Acetonide [Kenalog 0.1% Crm] 15 gm .XX BID PRN 02/16/13 [History] Vit A/Vit C/Vit E/Zinc/Copper [Preservision Areds Softgel] 1 each PO PCLUNCH [History] metFORMIN HCl [Glucophage] 500 mg PO QPM 02/16/13 [History] Warfarin [Coumadin] 2.5 mg PO 1600 02/09/14 [History] Ketotifen Fumarate [Zaditor] 1 drop EYEBOTH BID PRN 02/27/16 [History] Calcium Carbonate [Calcium] 600 mg PO ,18 02/28/16 [History] Furosemide [Lasix] 40 mg PO DAILY #15 tablet 09/01/16 [Rx] Levothyroxine [Synthroid] 88 mcg PO ACBREAKFAST 09/01/16 [History] Ferrous Gluconate 324 mg PO DAILY 04/28/17 [History] amLODIPine [Norvasc] 2.5 mg PO DAILY 04/28/17 [History] Past Medical History HEENT History: Reports: Cataract, Impaired Vision Cardiovascular History: Reports: Blood Clots/VTE/DVT, Heart Failure, Heart Murmur, High Cholesterol, Hypertension Respiratory History: Reports: None Gastrointestinal History: Reports: Diverticulosis Genitourinary History: Reports: Urinary Incontinence, Other (See Below) Other Genitourinary History: A&P REPAIR, DYSFUNCTIONAL UTERINE BLEEDING. 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 History: Reports: Dysfunctional Uterine Bleeding, Other OB/BYN History: II PARA II Musculoskeletal History: Reports: Osteoarthritis Neurological History: Reports: CVA Psychiatric History: Reports: None Endocrine/Metabolic History: Reports: Diabetes, Type II, Hypothyroidism, Obesity /BMI 30+ Hematologic History: Reports: Anemia Other Hematologic History: POST SURGICAL FROM [facility] Immunologic History: Reports: None Oncologic (Cancer) History: Reports: None Dermatologic History: Reports: Venous Stasis Dermatitis - Infectious Disease History Infectious Disease History: Reports: Chicken Pox, Measles, Mumps - Past Surgical History Head Surgeries/Procedures: Reports: None HEENT Surgical History: Reports: Cataract Surgery GI Surgical History: Reports: Appendectomy, Cholecystectomy, Colon, Colonoscopy , Hernia, Abdominal, Hernia Repair/Other Female Surgical History: Reports: D&C, Hysterectomy, Oophorectomy, Salpingo- Oophorectomy Social & Family History - Family History Other HEENT Family History: SEE HX - Tobacco Use Smoking Status *Q: Never Smoker Years of Tobacco use: 5 Packs/Tins Daily: 0.2 Used Tobacco, but Quit: Yes Month Tobacco Last Used: 04/20/1969 Second Hand Smoke Exposure: No - Caffeine Use Caffeine Use: Reports: Coffee Other Caffeine Use: 2 cups a day - Alcohol Use Days Per Week of Alcohol Use: 0 - Recreational Drug Use Recreational Drug Use: No H&P Review of Systems - Review of Systems: Review Of Systems: See Below General: Reports: Malaise, Weakness, Fatigue HEENT: Reports: No Symptoms Pulmonary: Reports: No Symptoms Cardiovascular: Reports: Edema Gastrointestinal: Reports: No Symptoms Genitourinary: Reports: No Symptoms Musculoskeletal: Reports: Shoulder Pain (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 ) Skin: Reports: No Symptoms Psychiatric: Reports: Depression (tearful), Anxiety (significant at this time as this ordeal has her shaken up. ) Neurological: Reports: Pre-Existing Deficit, Weakness (chronic left weakness due to prior stroke. ). Denies: Tremors Hematologic/Lymphatic: Reports: Anemia, Other (warfarin use for hx of DVTs in the past. ) Exam - Exam Exam: See Below - Vital Signs Vital Signs: Vital Signs (72 hours) 04/28/17 04/28/17 11:45 13:56 Temperature [ 98.0 F Oral] Pulse, 73 74 Peripheral [ Left Pulse Oximetry] Respiratory 16 18 Rate Blood Pressure 104/41 L 135/88 [Left Middle Arm] O2 Sat by Pulse 97 92 L Oximetry Weight: 87.407 kg - Exam General: Alert, Oriented, Moderate Distress HEENT: Conjunctiva Clear, Hearing Intact, Pupils Equal Neck: Supple, Trachea Midline. No: JVD, Thyromegaly Lungs: Normal Respiratory Effort, Rales (minimal noted in left lower lobe, otherwise clear throughout.) Cardiovascular: Regular Rate, Regular Rhythm, Systolic Murmur (3-4/6 ruslan radiating throughout precordium). No: Rubs, Gallop/S3, Gallop/S4 GI/Abdominal Exam: Normal Bowel Sounds, Soft, Non-Tender Rectal (Female) Exam: Normal Exam, Normal Rectal Tone. No: Black Stool, Bloody Stool, Decreased Rectal Tone, Fecal Impaction, Hemorrhoids, Mass, Tenderness Back Exam: Normal Inspection. No: CVA Tenderness (R), CVA Tenderness (L), Muscle Spasm Extremities: Increased Warmth, Redness (bilateral ankles to mid shins/mild. edema 2+ with stasis dermatitis. no weeping or open wounds. symetric edema. ) Skin: No: Wound Psychiatric: Labile Mood, Anxious, Depressed - Patient Data Lab Results Last 24 hrs: Laboratory Tests 04/28/17 04/28/17 04/28/17 Range/Units 12:30 12:30 12:30 WBC 4.0 L (4.5-12.0) X10-3/uL RBC 3.20 L (3.23-5.20) x10(6)uL Hgb 8.4 L (11.5-15.5) g/dL Hct 26.3 L (30.0-51.3) % MCV 82.0 (80-96) fL MCH 26.2 L (27.7-33.6) pg MCHC 31.9 L (32.2-35.4) g/dL RDW 15.4 (11.5-15.5) % Plt Count 197 (125-369) X10(3)uL MPV 7.6 (7.4-10.4) fL Neut % (Auto) 63.5 (46-82) % Lymph % (Auto) 16.1 (13-37) % Gosper % (Auto) 19.3 H (4-12) % Eos % (Auto) 1 (1.0-5.0) % Baso % (Auto) 0 (0-2) % Neut # (Auto) 2.6 (1.6-8.3) # Lymph # (Auto) 0.6 (0.6-5.0) # Gosper # (Auto) 0.8 (0.0-1.3) # Eos # (Auto) 0.0 (0.0-0.8) # Baso # (Auto) 0.0 (0.0-0.2) # PT 21.1 H (8.7-11.1) INR 2.06 H (0.89-1.13) Sodium 133 L (135-145) mmol/L Potassium 3.9 (3.5-5.3) mmol/L Chloride 97 L (100-110) mmol/L Carbon Dioxide 26 (21-32) mmol/L BUN 37 H (7-18) mg/dL Creatinine 1.4 H (0.55-1.02) mg/dL Est Cr Clr Drug Dosing 26.29 mL/min Estimated GFR (MDRD) 36 L (>60) BUN/Creatinine Ratio 26.4 H (9-20) Glucose 216 H (80-116) mg/dL Hemoglobin A1c (4.5-6.2) % Calcium 8.7 (8.6-10.2) mg/dL Total Bilirubin 0.5 (0.1-1.3) mg/dL AST 30 H (5-25) IU/L ALT 18 (12-36) U/L Alkaline Phosphatase 62 (56-112) IU/L NT-Pro-B Natriuret Pep (<=450) pg/mL Total Protein 7.1 (6.0-8.0) g/dL Albumin 2.8 L (3.2-4.6) g/dL Globulin 4.3 g/dL Albumin/Globulin Ratio 0.7 TSH, Ultra Sensitive (0.36-3.74) IU/mL Urine Color (YELLOW) Urine Appearance (CLEAR) Urine pH (5.0-6.5) Ur Specific Oxly (1.010-1.025) Urine Protein (NEGATIVE) mg/dL Urine Glucose (UA) (NEGATIVE) mg/dL Urine Ketones (NEGATIVE) mg/dL Urine Occult Blood (NEGATIVE) Urine Nitrite (NEGATIVE) Urine Bilirubin (NEGATIVE) Urine Urobilinogen (NEGATIVE) mg/dL Ur Leukocyte Esterase (NEGATIVE) Urine RBC (0) Urine WBC (0) Ur Squamous Epith Cells (NS,R,O) Urine Bacteria (NS) Fine Granular Casts (NS) Coarse Granular Casts (NS) Blood Type Gel Antibody Screen Crossmatch 04/28/17 04/28/17 04/28/17 Range/Units 12:30 12:30 12:30 WBC (4.5-12.0) X10-3/uL RBC (3.23-5.20) x10(6)uL Hgb (11.5-15.5) g/dL Hct (30.0-51.3) % MCV (80-96) fL MCH (27.7-33.6) pg MCHC (32.2-35.4) g/dL RDW (11.5-15.5) % Plt Count (125-369) X10(3)uL MPV (7.4-10.4) fL Neut % (Auto) (46-82) % Lymph % (Auto) (13-37) % Gosper % (Auto) (4-12) % Eos % (Auto) (1.0-5.0) % Baso % (Auto) (0-2) % Neut # (Auto) (1.6-8.3) # Lymph # (Auto) (0.6-5.0) # Gosper # (Auto) (0.0-1.3) # Eos # (Auto) (0.0-0.8) # Baso # (Auto) (0.0-0.2) # PT (8.7-11.1) INR (0.89-1.13) Sodium (135-145) mmol/L Potassium (3.5-5.3) mmol/L Chloride (100-110) mmol/L Carbon Dioxide (21-32) mmol/L BUN (7-18) mg/dL Creatinine (0.55-1.02) mg/dL Est Cr Clr Drug Dosing mL/min Estimated GFR (MDRD) (>60) BUN/Creatinine Ratio (9-20) Glucose (80-116) mg/dL Hemoglobin A1c 7.2 H (4.5-6.2) % Calcium (8.6-10.2) mg/dL Total Bilirubin (0.1-1.3) mg/dL AST (5-25) IU/L ALT (12-36) U/L Alkaline Phosphatase (56-112) IU/L NT-Pro-B Natriuret Pep 8130 H* (<=450) pg/mL Total Protein (6.0-8.0) g/dL Albumin (3.2-4.6) g/dL Globulin g/dL Albumin/Globulin Ratio TSH, Ultra Sensitive (0.36-3.74) IU/mL Urine Color (YELLOW) Urine Appearance (CLEAR) Urine pH (5.0-6.5) Ur Specific Oxly (1.010-1.025) Urine Protein (NEGATIVE) mg/dL Urine Glucose (UA) (NEGATIVE) mg/dL Urine Ketones (NEGATIVE) mg/dL Urine Occult Blood (NEGATIVE) Urine Nitrite (NEGATIVE) Urine Bilirubin (NEGATIVE) Urine Urobilinogen (NEGATIVE) mg/dL Ur Leukocyte Esterase (NEGATIVE) Urine RBC (0) Urine WBC (0) Ur Squamous Epith Cells (NS,R,O) Urine Bacteria (NS) Fine Granular Casts (NS) Coarse Granular Casts (NS) Blood Type A POSITIVE Gel Antibody Screen Negative Crossmatch See Detail 04/28/17 04/28/17 Range/Units 12:30 13:26 WBC (4.5-12.0) X10-3/uL RBC (3.23-5.20) x10(6)uL Hgb (11.5-15.5) g/dL Hct (30.0-51.3) % MCV (80-96) fL MCH (27.7-33.6) pg MCHC (32.2-35.4) g/dL RDW (11.5-15.5) % Plt Count (125-369) X10(3)uL MPV (7.4-10.4) fL Neut % (Auto) (46-82) % Lymph % (Auto) (13-37) % Gosper % (Auto) (4-12) % Eos % (Auto) (1.0-5.0) % Baso % (Auto) (0-2) % Neut # (Auto) (1.6-8.3) # Lymph # (Auto) (0.6-5.0) # Gosper # (Auto) (0.0-1.3) # Eos # (Auto) (0.0-0.8) # Baso # (Auto) (0.0-0.2) # PT (8.7-11.1) INR (0.89-1.13) Sodium (135-145) mmol/L Potassium (3.5-5.3) mmol/L Chloride (100-110) mmol/L Carbon Dioxide (21-32) mmol/L BUN (7-18) mg/dL Creatinine (0.55-1.02) mg/dL Est Cr Clr Drug Dosing mL/min Estimated GFR (MDRD) (>60) BUN/Creatinine Ratio (9-20) Glucose (80-116) mg/dL Hemoglobin A1c (4.5-6.2) % Calcium (8.6-10.2) mg/dL Total Bilirubin (0.1-1.3) mg/dL AST (5-25) IU/L ALT (12-36) U/L Alkaline Phosphatase (56-112) IU/L NT-Pro-B Natriuret Pep (<=450) pg/mL Total Protein (6.0-8.0) g/dL Albumin (3.2-4.6) g/dL Globulin g/dL Albumin/Globulin Ratio TSH, Ultra Sensitive 6.32 H (0.36-3.74) IU/mL Urine Color Yellow (YELLOW) Urine Appearance Clear (CLEAR) Urine pH 5.0 (5.0-6.5) Ur Specific Oxly 1.010 (1.010-1.025) Urine Protein Negative (NEGATIVE) mg/dL Urine Glucose (UA) Normal (NEGATIVE) mg/dL Urine Ketones Negative (NEGATIVE) mg/dL Urine Occult Blood Negative (NEGATIVE) Urine Nitrite Negative (NEGATIVE) Urine Bilirubin Negative (NEGATIVE) Urine Urobilinogen Normal (NEGATIVE) mg/dL Ur Leukocyte Esterase Negative (NEGATIVE) Urine RBC 0-5 (0) Urine WBC 0-5 (0) Ur Squamous Epith Cells Few H (NS,R,O) Urine Bacteria Moderate H (NS) Fine Granular Casts Few H (NS) Coarse Granular Casts Few H (NS) Blood Type Gel Antibody Screen Crossmatch Result Diagrams: 04/28/17 12:30 04/28/17 12:30 David Results Last 24 hrs: Microbiology 04/28/17 16:00 Stool Occult Blood (DAVID) - Final Stool / Feces - Stool, Formed NEGATIVE OCCULT BLOOD *Q Meaningful Use (ADM) - VTE *Q VTE Criteria *Q: - Stroke *Q Stroke Criteria *Q: - AMI *Q AMI Criteria *Q: - Problem List (1) Complaint of debility and malaise SNOMED Code(s): 653051766 ICD Code: R53.81 - OTHER MALAISE Status: Acute Current Visit: Yes (2) Acute on chronic renal failure SNOMED Code(s): 471888283 ICD Code: N17.9 - ACUTE KIDNEY FAILURE, UNSPECIFIED; N18.9 - CHRONIC KIDNEY DISEASE, UNSPECIFIED Status: Acute Current Visit: Yes (3) Microcytic hypochromic anemia SNOMED Code(s): 47636281 ICD Code: D50.9 - IRON DEFICIENCY ANEMIA, UNSPECIFIED Status: Chronic Current Visit: Yes (4) Weakness of both lower extremities SNOMED Code(s): 4152532 ICD Code: R29.898 - OTH SYMPTOMS AND SIGNS INVOLVING THE MUSCULOSKELETAL SYSTEM Status: Acute Current Visit: Yes (5) CHF, Congestive heart failure SNOMED Code(s): 26118083 ICD Code: I50.9 - HEART FAILURE, UNSPECIFIED Status: Chronic Current Visit: Yes Problem Details: Admit to In Pt (6) Palliative care status SNOMED Code(s): 584892441 ICD Code: Z51.5 - ENCOUNTER FOR PALLIATIVE CARE Status: Acute Current Visit: Yes (7) Elevated brain natriuretic peptide (BNP) level SNOMED Code(s): 882509021 ICD Code: R79.89 - OTHER SPECIFIED ABNORMAL FINDINGS OF BLOOD CHEMISTRY Status: Acute Current Visit: Yes (8) Venous stasis dermatitis of both lower extremities SNOMED Code(s): 96859764 ICD Code: I87.2 - VENOUS INSUFFICIENCY (CHRONIC) (PERIPHERAL) Status: Chronic Current Visit: Yes (9) Hypothyroidism SNOMED Code(s): 69708462 ICD Code: E03.9 - HYPOTHYROIDISM, UNSPECIFIED Status: Chronic Current Visit: Yes (10) H/O deep venous thrombosis SNOMED Code(s): 085974106 ICD Code: Z86.718 - PERSONAL HISTORY OF OTHER VENOUS THROMBOSIS AND EMBOLISM Status: Chronic Current Visit: Yes (11) 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 SNOMED Code(s): 953959925 ICD Code: Z79.01 - [facility] (CURRENT) USE OF ANTICOAGULANTS Status: Acute Current Visit: Yes (12) Diabetes type 2, controlled SNOMED Code(s): 08391968 ICD Code: E11.9 - TYPE 2 DIABETES MELLITUS WITHOUT COMPLICATIONS Status: Chronic Current Visit: Yes Qualifiers: Diabetes mellitus complication status: without complication Diabetes mellitus longterm insulin use: with assistant terminal manager use Qualified Code(s): E11.9 - Type 2 diabetes mellitus without complications; Z79.4 - assistant terminal manager (current) use of insulin (13) HTN (hypertension) SNOMED Code(s): 86847621 ICD Code: I10 - ESSENTIAL (PRIMARY) HYPERTENSION Status: Chronic Current Visit: Yes Qualifiers: Hypertension type: essential hypertension Qualified Code(s): I10 - Essential (primary) hypertension Problem List Initiated/Reviewed/Updated: Yes Orders Last 24hrs: Active Orders 24 hr Category Date Time Status Patient Status [ADT] Routine ADT 04/28/17 14:58 Active Accu Check [Blood Glucose Check, Bedside] [RC] Care 04/28/17 16:34 Ordered WITHMEALSANDBED Bedrest Bedside Commode [RC] ASDIRECTED Care 04/28/17 16:29 Ordered Cardiac Education [RC] Click to Edit Care 04/28/17 14:58 Active Cardiac Monitoring [RC] CONTINUOUS Care 04/28/17 15:02 Active Head of Bed Elevation [RC] ASDIRECTED Care 04/28/17 14:58 Active Height and Weight [RC] DAILY Care 04/28/17 14:58 Active Intake and Output [RC] Q4H Care 04/28/17 15:01 Active Orthostatic Vital Signs [RC] ASDIRECTED Care 04/28/17 14:58 Active Oxygen Therapy [RC] PRN Care 04/28/17 14:58 Active Up With Assistance [RC] ASDIRECTED Care 04/28/17 14:58 Active VTE/DVT Education [RC] Per Unit Routine Care 04/28/17 14:58 Active Vital Signs [RC] Q4H Care 04/28/17 14:58 Active Consult to [facility] Tanner [CONS] Routine Cons 04/28/17 14:58 Active OT Evaluation and Treatment [CONS] Routine Cons 04/28/17 14:58 Active PT Evaluation and Treatment [CONS] Routine Cons 04/28/17 14:58 Active 2 Gram Sodium Diet [DIET] Diet 04/28/17 Dinner Active Fluid Restriction [DIET] Diet 04/28/17 Dinner Active RED BLOOD CELLS LP [BBK] Routine Lab 04/28/17 12:30 Results TYPE AND SCREEN [BBK] Routine Lab 04/28/17 12:30 Results Ferrous Gluconate Med 04/29/17 09:00 Active 324 mg PO DAILY Furosemide [Lasix] Med 04/28/17 16:31 Once 20 mg IVPUSH ONETIME ONE Insulin Aspart [NovoLOG] Med 04/28/17 17:30 Ordered See Protocol SUBCUT QIDACANDBED LORazepam [Ativan] Med 04/28/17 16:33 Ordered 0.5 mg PO Q8H PRN Levothyroxine [Synthroid] Med 04/29/17 06:00 Active 88 mcg PO 0600 Sodium Chloride 0.9% [Normal Saline] 250 ml Med 04/28/17 16:30 Ordered IV ASDIRECTED Warfarin [Coumadin] Med 04/28/17 16:00 Active 2.5 mg PO 1600 Zolpidem [Ambien] Med 04/28/17 14:58 Active 5 mg PO BEDTIME PRN LAMIN Bandage [Elastic Wrap] [OM.PC] Routine Ot 04/28/17 16:28 Ordered CHF Questionnaire [COMM] Routine Oth 04/28/17 14:58 Ordered Transfuse PRBC [Transfuse Red Blood Cells] [COMM] Oth 04/28/17 16:26 Ordered Routine Medication Orders Ferrous Gluconate (Ferrous Gluconate) 324 mg PO DAILY GALILEO Furosemide (Lasix) 20 mg IVPUSH ONETIME ONE Stop: 04/28/17 16:32 Sodium Chloride (Normal Saline) 250 mls @ 100 mls/hr IV ASDIRECTED GALILEO Insulin Aspart (Novolog) 0 unit SUBCUT QIDACANDBED GALILEO PRN Reason: Protocol Levothyroxine Sodium (Synthroid) 88 mcg PO 0600 GALILEO Lorazepam (Ativan) 0.5 mg PO Q8H PRN PRN Reason: Anxiety Warfarin Sodium (Coumadin) 2.5 mg PO 1600 GALILEO Zolpidem Tartrate (Ambien) 5 mg PO BEDTIME PRN PRN Reason: Sleep Assessment/Plan Comment:: going to get orthostatics. hold bp meds for now. no gi bleed so give todays warfarin dose. chronically low h/h i believe bring her up to 9 mg/dL would benefit prognosis. will transfuse 1 unit only. give a dose of lasix after as we are going to mobilize fluid from the legs as well with LAMIN wraps and elevations. caution not to overload the heart. she looks clinically dry rather than wet, so will monitor strict in/outs. accurate weight measurements. chronic venous stasis dermatitis non infective. will monitor. disposition is guarded. she is palliative care status. no longer safe in her own home, and will discuss senior living assessment during stay. will have pt/ot assess her tomorrow afternoon. risks and benefits of blood transfusion was discussed with patient. she has had in the past without complications. consent received. will follow glucose levels and INRs as well. continuous telemetry. ekg without event.
[2017-04-28] MEDS: Warfarin 2.5 MG Tab PO SCH (16:56)
[2017-04-28] MEDS ORDERED: Furosemide 20 MG/2 ML VIAL IVPUSH PRN (17:10)
[2017-04-28] MEDS: Insulin Aspart 100 Units/ML 3 ML Pen SUBCUT SCH ×2 (18:05→21:53)
[2017-04-29] MEDS: Levothyroxine 88 MCG Tab PO SCH (05:57)
[2017-04-29] MEDS: Insulin Aspart 100 Units/ML 3 ML Pen SUBCUT SCH ×4 (06:45→20:52)
--- NOTE | 2017-04-29 08:52 | CR ---
INDICATION: Weakness, high BNP. CHEST: An AP upright view of the chest, 04/28/2017, was compared with 2016 and again reveals the heart to be enlarged, the aorta tortuous and calcified. Overlying snaps are noted. Pulmonary vasculature appears to be prominent, compatible with CHF. Minimal, if any, interstitial lung edema is present. No active infiltrate or effusion was seen. IMPRESSION: Findings are compatible with ASHD, cardiomegaly, with mild to moderate CHF. No definite lung edema identified. MTDD
[2017-04-29] MEDS: Ferrous Gluconate 324 MG Tab PO SCH (09:06)
--- NOTE | 2017-04-29 10:37 | PCM.PN ---
- General Info Date of Service: 04/29/17 Subjective Update: Pleasant 81-year-old female awake lying in bed. Tells me she feels a bit better with regards to no more tremulousness. Still feels weak. No longer pale. She denies headache, tinnitus, blurred vision, nasal congestion or sore throat, no coughing, shortness of breath, chest pain or pressure, abdominal pain, or worsening pain of the lower extremities. She is tolerating the Juancarlos wraps quite well. She has been getting up to the restroom and has made good urine output. She is tolerating her diet. Is less anxious this morning. No overnight events on telemetry. Nursing without concerns. - Related Data Allergies/Adverse Reactions: Allergies Allergy/AdvReac Type Severity Reaction Status Date / Time ciprofloxacin [From Cipro] Allergy Rash Verified 09/01/16 10:04 ciprofloxacin HCl Allergy Rash Verified 09/01/16 10:04 [From Cipro] Prior to admission Home Medications: Home Meds Hydrochlorothiazide 25 mg PO DAILY 02/16/13 [History] Lisinopril [Prinivil] 40 mg PO DAILY 02/16/13 [History] Multivitamin with Minerals [Multiple Vitamin] 2 tab PO DAILY 02/16/13 [History] Nebivolol [Bystolic] 10 mg PO BID 02/16/13 [History] Pravastatin [Pravachol] 40 mg PO BEDTIME 02/16/13 [History] Triamcinolone Acetonide [Kenalog 0.1% Crm] 15 gm .XX BID PRN 02/16/13 [History] Vit A/Vit C/Vit E/Zinc/Copper [Preservision Areds Softgel] 1 each PO PCLUNCH [History] metFORMIN HCl [Glucophage] 500 mg PO QPM 02/16/13 [History] Warfarin [Coumadin] 2.5 mg PO 1600 02/09/14 [History] Ketotifen Fumarate [Zaditor] 1 drop EYEBOTH BID PRN 02/27/16 [History] Calcium Carbonate [Calcium] 600 mg PO 02/28/16 [History] Furosemide [Lasix] 40 mg PO DAILY #15 tablet 09/01/16 [Rx] Levothyroxine [Synthroid] 88 mcg PO ACBREAKFAST 09/01/16 [History] Ferrous Gluconate 324 mg PO DAILY 04/28/17 [History] amLODIPine [Norvasc] 2.5 mg PO DAILY 04/28/17 [History] Functional Status: Reports: Tolerating Diet, Ambulating, Urinating. Denies: New Symptoms - Review of Systems Systems Review Comment:: Please see above for pertinent positives and negatives - Patient Data Vitals - Most Recent: Vital Signs - 8 hr 04/29/17 04/29/17 07:25 10:50 Temperature [ 97.9 F Oral] Pulse, 67 Peripheral Pulse, 67 Peripheral [ Left Pulse Oximetry] Respiratory 20 Rate Blood Pressure 126/62 Blood Pressure 126/62 [Left Upper Arm ] O2 Sat by Pulse 94 L Oximetry Orthostatic Blood Pressure [ 128/60 Standing] Orthostatic Blood Pressure [ 120/56 Sitting] Orthostatic Blood Pressure [ 110/58 Supine] Weight - Most Recent: 86.636 kg I&O - Last 24 Hours: Intake & Output 04/28/17 04/29/17 04/29/17 22:59 06:59 14:59 Intake Total 130 358 Output Total 750 800 Balance -620 -442 Weight on admit: 87.407 kg Weight today: 86.636 kg Total weight loss: 0.771 kg (1.7 pound) Overall urine output since admission roughly 1500 mL Lab Results Last 24 Hours: Laboratory Tests 04/28/17 04/28/17 04/28/17 Range/Units 12:30 12:30 12:30 WBC 4.0 L (4.5-12.0) X10-3/uL RBC 3.20 L (3.23-5.20) x10(6)uL Hgb 8.4 L (11.5-15.5) g/dL Hct 26.3 L (30.0-51.3) % MCV 82.0 (80-96) fL MCH 26.2 L (27.7-33.6) pg MCHC 31.9 L (32.2-35.4) g/dL RDW 15.4 (11.5-15.5) % Plt Count 197 (125-369) X10(3)uL MPV 7.6 (7.4-10.4) fL Neut % (Auto) 63.5 (46-82) % Lymph % (Auto) 16.1 (13-37) % Posey % (Auto) 19.3 H (4-12) % Eos % (Auto) 1 (1.0-5.0) % Baso % (Auto) 0 (0-2) % Neut # (Auto) 2.6 (1.6-8.3) # Lymph # (Auto) 0.6 (0.6-5.0) # Posey # (Auto) 0.8 (0.0-1.3) # Eos # (Auto) 0.0 (0.0-0.8) # Baso # (Auto) 0.0 (0.0-0.2) # PT 21.1 H (8.7-11.1) INR 2.06 H (0.89-1.13) Sodium 133 L (135-145) mmol/L Potassium 3.9 (3.5-5.3) mmol/L Chloride 97 L (100-110) mmol/L Carbon Dioxide 26 (21-32) mmol/L BUN 37 H (7-18) mg/dL Creatinine 1.4 H (0.55-1.02) mg/dL Est Cr Clr Drug Dosing 26.29 mL/min Estimated GFR (MDRD) 36 L (>60) BUN/Creatinine Ratio 26.4 H (9-20) Glucose 216 H (80-116) mg/dL POC Glucose (80-116) mg/dL Hemoglobin A1c (4.5-6.2) % Calcium 8.7 (8.6-10.2) mg/dL Total Bilirubin 0.5 (0.1-1.3) mg/dL AST 30 H (5-25) IU/L ALT 18 (12-36) U/L Alkaline Phosphatase 62 (56-112) IU/L NT-Pro-B Natriuret Pep (<=450) pg/mL Total Protein 7.1 (6.0-8.0) g/dL Albumin 2.8 L (3.2-4.6) g/dL Globulin 4.3 g/dL Albumin/Globulin Ratio 0.7 Vitamin B12 (193-986) pg/mL TSH, Ultra Sensitive (0.36-3.74) IU/mL Urine Color (YELLOW) Urine Appearance (CLEAR) Urine pH (5.0-6.5) Ur Specific Henderson (1.010-1.025) Urine Protein (NEGATIVE) mg/dL Urine Glucose (UA) (NEGATIVE) mg/dL Urine Ketones (NEGATIVE) mg/dL Urine Occult Blood (NEGATIVE) Urine Nitrite (NEGATIVE) Urine Bilirubin (NEGATIVE) Urine Urobilinogen (NEGATIVE) mg/dL Ur Leukocyte Esterase (NEGATIVE) Urine RBC (0) Urine WBC (0) Ur Squamous Epith Cells (NS,R,O) Urine Bacteria (NS) Fine Granular Casts (NS) Coarse Granular Casts (NS) Blood Type Gel Antibody Screen Crossmatch 04/28/17 04/28/17 04/28/17 Range/Units 12:30 12:30 12:30 WBC (4.5-12.0) X10-3/uL RBC (3.23-5.20) x10(6)uL Hgb (11.5-15.5) g/dL Hct (30.0-51.3) % MCV (80-96) fL MCH (27.7-33.6) pg MCHC (32.2-35.4) g/dL RDW (11.5-15.5) % Plt Count (125-369) X10(3)uL MPV (7.4-10.4) fL Neut % (Auto) (46-82) % Lymph % (Auto) (13-37) % Posey % (Auto) (4-12) % Eos % (Auto) (1.0-5.0) % Baso % (Auto) (0-2) % Neut # (Auto) (1.6-8.3) # Lymph # (Auto) (0.6-5.0) # Posey # (Auto) (0.0-1.3) # Eos # (Auto) (0.0-0.8) # Baso # (Auto) (0.0-0.2) # PT (8.7-11.1) INR (0.89-1.13) Sodium (135-145) mmol/L Potassium (3.5-5.3) mmol/L Chloride (100-110) mmol/L Carbon Dioxide (21-32) mmol/L BUN (7-18) mg/dL Creatinine (0.55-1.02) mg/dL Est Cr Clr Drug Dosing mL/min Estimated GFR (MDRD) (>60) BUN/Creatinine Ratio (9-20) Glucose (80-116) mg/dL POC Glucose (80-116) mg/dL Hemoglobin A1c 7.2 H (4.5-6.2) % Calcium (8.6-10.2) mg/dL Total Bilirubin (0.1-1.3) mg/dL AST (5-25) IU/L ALT (12-36) U/L Alkaline Phosphatase (56-112) IU/L NT-Pro-B Natriuret Pep 8130 H* (<=450) pg/mL Total Protein (6.0-8.0) g/dL Albumin (3.2-4.6) g/dL Globulin g/dL Albumin/Globulin Ratio Vitamin B12 (193-986) pg/mL TSH, Ultra Sensitive (0.36-3.74) IU/mL Urine Color (YELLOW) Urine Appearance (CLEAR) Urine pH (5.0-6.5) Ur Specific Henderson (1.010-1.025) Urine Protein (NEGATIVE) mg/dL Urine Glucose (UA) (NEGATIVE) mg/dL Urine Ketones (NEGATIVE) mg/dL Urine Occult Blood (NEGATIVE) Urine Nitrite (NEGATIVE) Urine Bilirubin (NEGATIVE) Urine Urobilinogen (NEGATIVE) mg/dL Ur Leukocyte Esterase (NEGATIVE) Urine RBC (0) Urine WBC (0) Ur Squamous Epith Cells (NS,R,O) Urine Bacteria (NS) Fine Granular Casts (NS) Coarse Granular Casts (NS) Blood Type A POSITIVE Gel Antibody Screen Negative Crossmatch See Detail 04/28/17 04/28/17 04/28/17 Range/Units 12:30 13:26 17:08 WBC (4.5-12.0) X10-3/uL RBC (3.23-5.20) x10(6)uL Hgb (11.5-15.5) g/dL Hct (30.0-51.3) % MCV (80-96) fL MCH (27.7-33.6) pg MCHC (32.2-35.4) g/dL RDW (11.5-15.5) % Plt Count (125-369) X10(3)uL MPV (7.4-10.4) fL Neut % (Auto) (46-82) % Lymph % (Auto) (13-37) % Posey % (Auto) (4-12) % Eos % (Auto) (1.0-5.0) % Baso % (Auto) (0-2) % Neut # (Auto) (1.6-8.3) # Lymph # (Auto) (0.6-5.0) # Posey # (Auto) (0.0-1.3) # Eos # (Auto) (0.0-0.8) # Baso # (Auto) (0.0-0.2) # PT (8.7-11.1) INR (0.89-1.13) Sodium (135-145) mmol/L Potassium (3.5-5.3) mmol/L Chloride (100-110) mmol/L Carbon Dioxide (21-32) mmol/L BUN (7-18) mg/dL Creatinine (0.55-1.02) mg/dL Est Cr Clr Drug Dosing mL/min Estimated GFR (MDRD) (>60) BUN/Creatinine Ratio (9-20) Glucose (80-116) mg/dL POC Glucose 184 H (80-116) mg/dL Hemoglobin A1c (4.5-6.2) % Calcium (8.6-10.2) mg/dL Total Bilirubin (0.1-1.3) mg/dL AST (5-25) IU/L ALT (12-36) U/L Alkaline Phosphatase (56-112) IU/L NT-Pro-B Natriuret Pep (<=450) pg/mL Total Protein (6.0-8.0) g/dL Albumin (3.2-4.6) g/dL Globulin g/dL Albumin/Globulin Ratio Vitamin B12 (193-986) pg/mL TSH, Ultra Sensitive 6.32 H (0.36-3.74) IU/mL Urine Color Yellow (YELLOW) Urine Appearance Clear (CLEAR) Urine pH 5.0 (5.0-6.5) Ur Specific Henderson 1.010 (1.010-1.025) Urine Protein Negative (NEGATIVE) mg/dL Urine Glucose (UA) Normal (NEGATIVE) mg/dL Urine Ketones Negative (NEGATIVE) mg/dL Urine Occult Blood Negative (NEGATIVE) Urine Nitrite Negative (NEGATIVE) Urine Bilirubin Negative (NEGATIVE) Urine Urobilinogen Normal (NEGATIVE) mg/dL Ur Leukocyte Esterase Negative (NEGATIVE) Urine RBC 0-5 (0) Urine WBC 0-5 (0) Ur Squamous Epith Cells Few H (NS,R,O) Urine Bacteria Moderate H (NS) Fine Granular Casts Few H (NS) Coarse Granular Casts Few H (NS) Blood Type Gel Antibody Screen Crossmatch 04/28/17 04/29/17 04/29/17 Range/Units 20:52 09:15 09:15 WBC 2.9 L (4.5-12.0) X10-3/uL RBC 3.55 (3.23-5.20) x10(6)uL Hgb 9.3 L (11.5-15.5) g/dL Hct 29.3 L (30.0-51.3) % MCV 82.6 (80-96) fL MCH 26.3 L (27.7-33.6) pg MCHC 31.8 L (32.2-35.4) g/dL RDW 15.2 (11.5-15.5) % Plt Count 178 (125-369) X10(3)uL MPV (7.4-10.4) fL Neut % (Auto) (46-82) % Lymph % (Auto) (13-37) % Posey % (Auto) (4-12) % Eos % (Auto) (1.0-5.0) % Baso % (Auto) (0-2) % Neut # (Auto) (1.6-8.3) # Lymph # (Auto) (0.6-5.0) # Posey # (Auto) (0.0-1.3) # Eos # (Auto) (0.0-0.8) # Baso # (Auto) (0.0-0.2) # PT (8.7-11.1) INR (0.89-1.13) Sodium 135 (135-145) mmol/L Potassium 3.4 L (3.5-5.3) mmol/L Chloride 98 L (100-110) mmol/L Carbon Dioxide 28 (21-32) mmol/L BUN 28 H (7-18) mg/dL Creatinine 1.3 H (0.55-1.02) mg/dL Est Cr Clr Drug Dosing 28.31 mL/min Estimated GFR (MDRD) 39 L (>60) BUN/Creatinine Ratio 21.5 H (9-20) Glucose 236 H (80-116) mg/dL POC Glucose 201 H (80-116) mg/dL Hemoglobin A1c (4.5-6.2) % Calcium 8.9 (8.6-10.2) mg/dL Total Bilirubin (0.1-1.3) mg/dL AST (5-25) IU/L ALT (12-36) U/L Alkaline Phosphatase (56-112) IU/L NT-Pro-B Natriuret Pep (<=450) pg/mL Total Protein (6.0-8.0) g/dL Albumin (3.2-4.6) g/dL Globulin g/dL Albumin/Globulin Ratio Vitamin B12 (193-986) pg/mL TSH, Ultra Sensitive (0.36-3.74) IU/mL Urine Color (YELLOW) Urine Appearance (CLEAR) Urine pH (5.0-6.5) Ur Specific Henderson (1.010-1.025) Urine Protein (NEGATIVE) mg/dL Urine Glucose (UA) (NEGATIVE) mg/dL Urine Ketones (NEGATIVE) mg/dL Urine Occult Blood (NEGATIVE) Urine Nitrite (NEGATIVE) Urine Bilirubin (NEGATIVE) Urine Urobilinogen (NEGATIVE) mg/dL Ur Leukocyte Esterase (NEGATIVE) Urine RBC (0) Urine WBC (0) Ur Squamous Epith Cells (NS,R,O) Urine Bacteria (NS) Fine Granular Casts (NS) Coarse Granular Casts (NS) Blood Type Gel Antibody Screen Crossmatch 04/29/17 04/29/17 04/29/17 Range/Units 09:15 09:15 09:15 WBC (4.5-12.0) X10-3/uL RBC (3.23-5.20) x10(6)uL Hgb (11.5-15.5) g/dL Hct (30.0-51.3) % MCV (80-96) fL MCH (27.7-33.6) pg MCHC (32.2-35.4) g/dL RDW (11.5-15.5) % Plt Count (125-369) X10(3)uL MPV (7.4-10.4) fL Neut % (Auto) (46-82) % Lymph % (Auto) (13-37) % Posey % (Auto) (4-12) % Eos % (Auto) (1.0-5.0) % Baso % (Auto) (0-2) % Neut # (Auto) (1.6-8.3) # Lymph # (Auto) (0.6-5.0) # Posey # (Auto) (0.0-1.3) # Eos # (Auto) (0.0-0.8) # Baso # (Auto) (0.0-0.2) # PT 22.4 H (8.7-11.1) INR 2.18 H (0.89-1.13) Sodium (135-145) mmol/L Potassium (3.5-5.3) mmol/L Chloride (100-110) mmol/L Carbon Dioxide (21-32) mmol/L BUN (7-18) mg/dL Creatinine (0.55-1.02) mg/dL Est Cr Clr Drug Dosing mL/min Estimated GFR (MDRD) (>60) BUN/Creatinine Ratio (9-20) Glucose (80-116) mg/dL POC Glucose (80-116) mg/dL Hemoglobin A1c (4.5-6.2) % Calcium (8.6-10.2) mg/dL Total Bilirubin (0.1-1.3) mg/dL AST (5-25) IU/L ALT (12-36) U/L Alkaline Phosphatase (56-112) IU/L NT-Pro-B Natriuret Pep 32648 H* (<=450) pg/mL Total Protein (6.0-8.0) g/dL Albumin (3.2-4.6) g/dL Globulin g/dL Albumin/Globulin Ratio Vitamin B12 685 (193-986) pg/mL TSH, Ultra Sensitive (0.36-3.74) IU/mL Urine Color (YELLOW) Urine Appearance (CLEAR) Urine pH (5.0-6.5) Ur Specific Henderson (1.010-1.025) Urine Protein (NEGATIVE) mg/dL Urine Glucose (UA) (NEGATIVE) mg/dL Urine Ketones (NEGATIVE) mg/dL Urine Occult Blood (NEGATIVE) Urine Nitrite (NEGATIVE) Urine Bilirubin (NEGATIVE) Urine Urobilinogen (NEGATIVE) mg/dL Ur Leukocyte Esterase (NEGATIVE) Urine RBC (0) Urine WBC (0) Ur Squamous Epith Cells (NS,R,O) Urine Bacteria (NS) Fine Granular Casts (NS) Coarse Granular Casts (NS) Blood Type Gel Antibody Screen Crossmatch 04/29/17 Range/Units 11:23 WBC (4.5-12.0) X10-3/uL RBC (3.23-5.20) x10(6)uL Hgb (11.5-15.5) g/dL Hct (30.0-51.3) % MCV (80-96) fL MCH (27.7-33.6) pg MCHC (32.2-35.4) g/dL RDW (11.5-15.5) % Plt Count (125-369) X10(3)uL MPV (7.4-10.4) fL Neut % (Auto) (46-82) % Lymph % (Auto) (13-37) % Posey % (Auto) (4-12) % Eos % (Auto) (1.0-5.0) % Baso % (Auto) (0-2) % Neut # (Auto) (1.6-8.3) # Lymph # (Auto) (0.6-5.0) # Posey # (Auto) (0.0-1.3) # Eos # (Auto) (0.0-0.8) # Baso # (Auto) (0.0-0.2) # PT (8.7-11.1) INR (0.89-1.13) Sodium (135-145) mmol/L Potassium (3.5-5.3) mmol/L Chloride (100-110) mmol/L Carbon Dioxide (21-32) mmol/L BUN (7-18) mg/dL Creatinine (0.55-1.02) mg/dL Est Cr Clr Drug Dosing mL/min Estimated GFR (MDRD) (>60) BUN/Creatinine Ratio (9-20) Glucose (80-116) mg/dL POC Glucose 191 H (80-116) mg/dL Hemoglobin A1c (4.5-6.2) % Calcium (8.6-10.2) mg/dL Total Bilirubin (0.1-1.3) mg/dL AST (5-25) IU/L ALT (12-36) U/L Alkaline Phosphatase (56-112) IU/L NT-Pro-B Natriuret Pep (<=450) pg/mL Total Protein (6.0-8.0) g/dL Albumin (3.2-4.6) g/dL Globulin g/dL Albumin/Globulin Ratio Vitamin B12 (193-986) pg/mL TSH, Ultra Sensitive (0.36-3.74) IU/mL Urine Color (YELLOW) Urine Appearance (CLEAR) Urine pH (5.0-6.5) Ur Specific Henderson (1.010-1.025) Urine Protein (NEGATIVE) mg/dL Urine Glucose (UA) (NEGATIVE) mg/dL Urine Ketones (NEGATIVE) mg/dL Urine Occult Blood (NEGATIVE) Urine Nitrite (NEGATIVE) Urine Bilirubin (NEGATIVE) Urine Urobilinogen (NEGATIVE) mg/dL Ur Leukocyte Esterase (NEGATIVE) Urine RBC (0) Urine WBC (0) Ur Squamous Epith Cells (NS,R,O) Urine Bacteria (NS) Fine Granular Casts (NS) Coarse Granular Casts (NS) Blood Type Gel Antibody Screen Crossmatch David Results Last 24 Hours: Microbiology 04/28/17 16:00 Stool Occult Blood (DAVID) - Final Stool / Feces - Stool, Formed NEGATIVE OCCULT BLOOD Med Orders - Current: Current Medications Ferrous Gluconate (Ferrous Gluconate) 324 mg PO DAILY [facility] Last Admin: 04/29/17 09:06 Dose: 324 mg Furosemide (Lasix) 20 mg IVPUSH ONETIME PRN PRN Reason: Edema Furosemide (Lasix) 40 mg PO DAILY [facility] Glimepiride (Glimepiride) 1 mg PO WITHBREAKFAST [facility] Sodium Chloride (Normal Saline) 250 mls @ 100 mls/hr IV ASDIRECTED [facility] Insulin Aspart (Novolog) 0 unit SUBCUT QIDACANDBED [facility] PRN Reason: Protocol Last Admin: 04/29/17 06:45 Dose: Not Given Levothyroxine Sodium (Synthroid) 88 mcg PO 0600 [facility] Last Admin: 04/29/17 05:57 Dose: 88 mcg Lisinopril (Prinivil) 20 mg PO DAILY [facility] Lorazepam (Ativan) 0.5 mg PO Q8H PRN PRN Reason: Anxiety Nebivolol (Bystolic) 10 mg PO DAILY [facility] Warfarin Sodium (Coumadin) 2.5 mg PO 1600 [facility] Last Admin: 04/28/17 16:56 Dose: 2.5 mg Zolpidem Tartrate (Ambien) 5 mg PO BEDTIME PRN PRN Reason: Sleep Discontinued Medications Furosemide (Lasix) 20 mg IVPUSH ONETIME ONE Stop: 04/28/17 16:32 Last Admin: 04/28/17 16:57 Dose: 20 mg - Exam Physical Findings Comments:: General: Alert, Oriented, no distress HEENT: Conjunctiva Clear normal tear film, oral mucosa is pink and moist. There is no scleral icterus. Neck:Supple, Trachea Midline. No: JVD Lungs: Normal Respiratory Effort, Rales (minimal noted in left lower lobe, otherwise clear throughout.) Cardiovascular: Regular Rate, Regular Rhythm, Systolic Murmur (3-4/6 ruslan radiating throughout precordium). No: Rubs, Gallop/S3, Gallop/S4 GI/Abdominal Exam: Normal Bowel Sounds, Soft, Non-Tender Back Exam: Normal Inspection. No: CVA Tenderness (R), CVA Tenderness (L), Muscle Spasm Extremities: Increased Warmth, Redness (bilateral ankles to mid shins/mild. edema 2+ with stasis dermatitis. no weeping or open wounds. Symmetric edema. ) Skin: Skin is improved in coloration no longer pale. No: Wound, Psychiatric: Labile Mood, Anxious-fear being home alone due to her debility, Depressed - Problem List & Annotations (1) Complaint of debility and malaise SNOMED Code(s): 226445020 Code(s): R53.81 - OTHER MALAISE Status: Acute Current Visit: Yes (2) Acute on chronic renal failure SNOMED Code(s): 884884544 Code(s): N17.9 - ACUTE KIDNEY FAILURE, UNSPECIFIED; N18.9 - CHRONIC KIDNEY DISEASE, UNSPECIFIED Status: Acute Current Visit: Yes (3) Microcytic hypochromic anemia SNOMED Code(s): 82990692 Code(s): D50.9 - IRON DEFICIENCY ANEMIA, UNSPECIFIED Status: Chronic Current Visit: Yes (4) Weakness of both lower extremities SNOMED Code(s): 4958299 Code(s): R29.898 - OTH SYMPTOMS AND SIGNS INVOLVING THE MUSCULOSKELETAL SYSTEM Status: Acute Current Visit: Yes (5) CHF, Congestive heart failure SNOMED Code(s): 50514415 Code(s): I50.9 - HEART FAILURE, UNSPECIFIED Status: Chronic Current Visit : Yes Annotation/Comment:: Admit to In Pt (6) Palliative care status SNOMED Code(s): 191749641 Code(s): Z51.5 - ENCOUNTER FOR PALLIATIVE CARE Status: Acute Current Visit: Yes (7) Elevated brain natriuretic peptide (BNP) level SNOMED Code(s): 225957133 Code(s): R79.89 - OTHER SPECIFIED ABNORMAL FINDINGS OF BLOOD CHEMISTRY Status: Acute Current Visit: Yes (8) Venous stasis dermatitis of both lower extremities SNOMED Code(s): 34971941 Code(s): I87.2 - VENOUS INSUFFICIENCY (CHRONIC) (PERIPHERAL) Status: Chronic Current Visit: Yes (9) Blood transfusion during current hospitalisation SNOMED Code(s): 031089295 Code(s): RAF8162 - Status: Acute Current Visit: Yes Onset Date: Annotation/Comment:: 1 unit given with minimal increase in temp, s/s of transfusion rxn. pt tolerated well. (10) Hypothyroidism SNOMED Code(s): 37173258 Code(s): E03.9 - HYPOTHYROIDISM, UNSPECIFIED Status: Chronic Current Visit: Yes (11) H/O deep venous thrombosis SNOMED Code(s): 703798073 Code(s): Z86.718 - PERSONAL HISTORY OF OTHER VENOUS THROMBOSIS AND EMBOLISM Status: Chronic Current Visit: Yes (12) [facility] (current) use of anticoagulants SNOMED Code(s): 796659990 Code(s): Z79.01 - ASSISTED (CURRENT) USE OF ANTICOAGULANTS Status: Acute Current Visit: Yes (13) Diabetes type 2, controlled SNOMED Code(s): 64248370 Code(s): E11.9 - TYPE 2 DIABETES MELLITUS WITHOUT COMPLICATIONS Status: Chronic Current Visit: Yes Qualifiers: Diabetes mellitus complication status: without complication Diabetes mellitus fci insulin use: with manager intermediate use Qualified Code(s): E11.9 - Type 2 diabetes mellitus without complications; Z79.4 - [facility] (current) use of insulin; Z79.4 - [facility] (current) use of insulin; Z79.4 - ad terminal makeup operator ( current) use of insulin; Z79.4 - [facility] (current) use of insulin (14) HTN (hypertension) SNOMED Code(s): 18511266 Code(s): I10 - ESSENTIAL (PRIMARY) HYPERTENSION Status: Chronic Current Visit: Yes Qualifiers: Hypertension type: essential hypertension Qualified Code(s): I10 - Essential (primary) hypertension - Problem List Review Problem List Initiated/Reviewed/Updated: Yes - My Orders Last 24 Hours: My Active Orders 04/28/17 14:58 Patient Status [ADT] Routine Cardiac Education [RC] Click to Edit Head of Bed Elevation [RC] ASDIRECTED Height and Weight [RC] 07 Orthostatic Vital Signs [RC] ASDIRECTED Oxygen Therapy [RC] PRN Up With Assistance [RC] ASDIRECTED VTE/DVT Education [RC] Per Unit Routine Vital Signs [RC] 08,12,16,20,00 Consult to Tools Programmer [CONS] Routine OT Evaluation and Treatment [CONS] Routine PT Evaluation and Treatment [CONS] Routine Zolpidem [Ambien] 5 mg PO BEDTIME PRN CHF Questionnaire [COMM] Routine 04/28/17 15:01 Intake and Output [RC] 06,10,16,18,22,02 04/28/17 15:02 Cardiac Monitoring [RC] 08,16,00 04/28/17 16:00 Warfarin [Coumadin] 2.5 mg PO 1600 04/28/17 16:26 Transfuse PRBC [Transfuse Red Blood Cells] [COMM] Routine 04/28/17 16:28 JUANCARLOS Bandage [Elastic Wrap] [OM.PC] Routine 04/28/17 16:29 Bedrest Bedside Commode [RC] ASDIRECTED 04/28/17 16:30 Sodium Chloride 0.9% [Normal Saline] 250 ml IV ASDIRECTED 04/28/17 16:33 LORazepam [Ativan] 0.5 mg PO Q8H PRN 04/28/17 16:34 Accu Check [Blood Glucose Check, Bedside] [RC] WITHMEALSANDBED 04/28/17 17:08 Code Status [Resuscitation Status] Routine 04/28/17 17:10 Furosemide [Lasix] 20 mg IVPUSH ONETIME PRN 04/28/17 17:30 Insulin Aspart [NovoLOG] See Protocol SUBCUT QIDACANDBED 04/28/17 Dinner 2 Gram Sodium Diet [DIET] Fluid Restriction [DIET] 04/29/17 06:00 Levothyroxine [Synthroid] 88 mcg PO 0600 04/29/17 08:00 Glimepiride 1 mg PO WITHBREAKFAST 04/29/17 09:00 Ferrous Gluconate 324 mg PO DAILY 04/29/17 10:00 Furosemide [Lasix] 40 mg PO DAILY Lisinopril [Prinivil] 20 mg PO DAILY Nebivolol [Bystolic] 10 mg PO DAILY 04/29/17 Lunch Consistent Carbohydrate Diet [DIET] 04/30/17 08:42 INR,PT,PROTHROMBIN TIME [COAG] DAILY - Assessment Assessment:: please see above - Plan Plan:: dose adjusting/discontinuing home meds due to renal function and consistent weakness with intermittent low bp. stopping metformin and starting glimiperide low dose. carb consistent diet added to low sodium and fluid restriction. continue accu checks. cutting out amlodipine due to venous stasis. cutting out hctz due to electrolyte and cutting loop diuretic lasix in half as she is making good urine. her bystolic is also being cut in half as well as this is add a high dose. will get a check of her b12 and folate due to her chronic metformen use. monitor INR closely with med changes. blood transfusion brought hgb up to > 9 mg/dL. Only 1 unit given. continue JUANCARLOS wraps and elevation to legs. caution not to overload the heart. she looks clinically looking better and weight is down. will continue to monitor strict in/outs. accurate weight measurements. chronic venous stasis dermatitis non infective. will monitor. disposition is guarded. she is palliative care status. no longer safe in her own home, and will discuss jail assessment during stay. will have pt/ot assess her tomorrow afternoon. will follow glucose levels and INRs as well. continuous telemetry. Anticipate inpatient stay additional 48-72 hours pending response to above.
[2017-04-29] MEDS: Lisinopril 20 MG Tab PO SCH (10:50)
[2017-04-29] MEDS: Furosemide 40 MG Tab PO SCH (10:50)
[2017-04-29] MEDS ORDERED: Glimepiride 4 MG Tab PO SCH (12:00)
[2017-04-29] MEDS ORDERED: Glimepiride 2 MG Tab PO SCH (12:54)
[2017-04-29] MEDS ORDERED: Acetaminophen/HYDROcodone 325-5 MG Tab PO PRN (15:00)
[2017-04-29] MEDS: Warfarin 2.5 MG Tab PO SCH (16:27)
[2017-04-30] MEDS: Levothyroxine 88 MCG Tab PO SCH (05:08)
[2017-04-30] MEDS: Insulin Aspart 100 Units/ML 3 ML Pen SUBCUT SCH ×4 (07:54→20:33)
[2017-04-30] MEDS: Glimepiride 2 MG Tab PO SCH (09:08)
[2017-04-30] MEDS: Furosemide 40 MG Tab PO SCH (09:11)
[2017-04-30] MEDS: Ferrous Gluconate 324 MG Tab PO SCH (09:11)
[2017-04-30] MEDS: Lisinopril 20 MG Tab PO SCH (09:11)
--- NOTE | 2017-04-30 10:11 | PCM.PN ---
- General Info Date of Service: 04/30/17 Subjective Update: Pleasant 81-year-old female awake lying in bed. Tells me she feels stronger after getting blood. Still feels weak and cautious. states her legs feel better as the swelling has gone down and the redness has improved. she did have an episode of hypoglycemia over night and was given juice which helped immediately. otherwise she has not concerns. we discussed the medication changes that have been made and discontinued. she is worried that her pharmacy has already received her 3 months supply of meds and wonders if her son should pick them up. I told her no, as she is on different doses now and this will be listed on her discharge she. She would like "Janel" at her pharmacy to know this. She denies headache, tinnitus, blurred vision, nasal congestion or sore throat , no coughing, shortness of breath, chest pain or pressure, abdominal pain, or worsening pain of the lower extremities. She is tolerating the Juancarlos wraps quite well. She has been getting up to the restroom and has made good urine output. She is tolerating her diet. Is less anxious No overnight events on telemetry. Nursing without concerns. - Review of Systems Systems Review Comment:: Please see subjective for pertinent positives and negatives - Patient Data Vitals - Most Recent: Last Vital Signs Temp 97.5 F 04/30/17 05:05 Pulse 70 04/30/17 09:08 Resp 16 04/30/17 05:05 BP 127/63 04/30/17 09:11 Pulse Ox 96 04/30/17 05:05 Orthostatic Blood Pressure [ 128/60 Standing] Orthostatic Blood Pressure [ 120/56 Sitting] Orthostatic Blood Pressure [ 110/58 Supine] Weight - Most Recent: 86.183 kg I&O - Last 24 Hours: Intake & Output 04/29/17 04/30/17 04/30/17 22:59 06:59 14:59 Intake Total 400 200 Output Total 700 0 Balance -300 200 Intake: Intake, Oral Amount 400 200 Oral Fluids 400 200 Intake, IV Amount 0 Normal Saline 250 ML @ 0 100 mls/hr IV ASDIRECTED [facility] Rx#:[id number] Output: Output, Emesis Amount 0 Output, Urine Amount 700 0 Other: Dinner Percent Consumed 100 Total, Intake Amount 100 200 Number of Bowel Movements 0 Number of Voids 0 Total, Output Amount 300 0 Lab Results Last 24 Hours: Laboratory Tests 04/28/17 04/28/17 04/28/17 Range/Units 12:30 12:30 12:30 WBC 4.0 L (4.5-12.0) X10-3/uL RBC 3.20 L (3.23-5.20) x10(6)uL Hgb 8.4 L (11.5-15.5) g/dL Hct 26.3 L (30.0-51.3) % MCV 82.0 (80-96) fL MCH 26.2 L (27.7-33.6) pg MCHC 31.9 L (32.2-35.4) g/dL RDW 15.4 (11.5-15.5) % Plt Count 197 (125-369) X10(3)uL MPV 7.6 (7.4-10.4) fL Neut % (Auto) 63.5 (46-82) % Lymph % (Auto) 16.1 (13-37) % Kaufman % (Auto) 19.3 H (4-12) % Eos % (Auto) 1 (1.0-5.0) % Baso % (Auto) 0 (0-2) % Neut # (Auto) 2.6 (1.6-8.3) # Lymph # (Auto) 0.6 (0.6-5.0) # Kaufman # (Auto) 0.8 (0.0-1.3) # Eos # (Auto) 0.0 (0.0-0.8) # Baso # (Auto) 0.0 (0.0-0.2) # PT 21.1 H (8.7-11.1) INR 2.06 H (0.89-1.13) Sodium 133 L (135-145) mmol/L Potassium 3.9 (3.5-5.3) mmol/L Chloride 97 L (100-110) mmol/L Carbon Dioxide 26 (21-32) mmol/L BUN 37 H (7-18) mg/dL Creatinine 1.4 H (0.55-1.02) mg/dL Est Cr Clr Drug Dosing 26.29 mL/min Estimated GFR (MDRD) 36 L (>60) BUN/Creatinine Ratio 26.4 H (9-20) Glucose 216 H (80-116) mg/dL POC Glucose (80-116) mg/dL Hemoglobin A1c (4.5-6.2) % Calcium 8.7 (8.6-10.2) mg/dL Total Bilirubin 0.5 (0.1-1.3) mg/dL AST 30 H (5-25) IU/L ALT 18 (12-36) U/L Alkaline Phosphatase 62 (56-112) IU/L NT-Pro-B Natriuret Pep (<=450) pg/mL Total Protein 7.1 (6.0-8.0) g/dL Albumin 2.8 L (3.2-4.6) g/dL Globulin 4.3 g/dL Albumin/Globulin Ratio 0.7 Vitamin B12 (193-986) pg/mL TSH, Ultra Sensitive (0.36-3.74) IU/mL Urine Color (YELLOW) Urine Appearance (CLEAR) Urine pH (5.0-6.5) Ur Specific [place] (1.010-1.025) Urine Protein (NEGATIVE) mg/dL Urine Glucose (UA) (NEGATIVE) mg/dL Urine Ketones (NEGATIVE) mg/dL Urine Occult Blood (NEGATIVE) Urine Nitrite (NEGATIVE) Urine Bilirubin (NEGATIVE) Urine Urobilinogen (NEGATIVE) mg/dL Ur Leukocyte Esterase (NEGATIVE) Urine RBC (0) Urine WBC (0) Ur Squamous Epith Cells (NS,R,O) Urine Bacteria (NS) Fine Granular Casts (NS) Coarse Granular Casts (NS) Blood Type Gel Antibody Screen Crossmatch 04/28/17 04/28/17 04/28/17 Range/Units 12:30 12:30 12:30 WBC (4.5-12.0) X10-3/uL RBC (3.23-5.20) x10(6)uL Hgb (11.5-15.5) g/dL Hct (30.0-51.3) % MCV (80-96) fL MCH (27.7-33.6) pg MCHC (32.2-35.4) g/dL RDW (11.5-15.5) % Plt Count (125-369) X10(3)uL MPV (7.4-10.4) fL Neut % (Auto) (46-82) % Lymph % (Auto) (13-37) % Kaufman % (Auto) (4-12) % Eos % (Auto) (1.0-5.0) % Baso % (Auto) (0-2) % Neut # (Auto) (1.6-8.3) # Lymph # (Auto) (0.6-5.0) # Kaufman # (Auto) (0.0-1.3) # Eos # (Auto) (0.0-0.8) # Baso # (Auto) (0.0-0.2) # PT (8.7-11.1) INR (0.89-1.13) Sodium (135-145) mmol/L Potassium (3.5-5.3) mmol/L Chloride (100-110) mmol/L Carbon Dioxide (21-32) mmol/L BUN (7-18) mg/dL Creatinine (0.55-1.02) mg/dL Est Cr Clr Drug Dosing mL/min Estimated GFR (MDRD) (>60) BUN/Creatinine Ratio (9-20) Glucose (80-116) mg/dL POC Glucose (80-116) mg/dL Hemoglobin A1c 7.2 H (4.5-6.2) % Calcium (8.6-10.2) mg/dL Total Bilirubin (0.1-1.3) mg/dL AST (5-25) IU/L ALT (12-36) U/L Alkaline Phosphatase (56-112) IU/L NT-Pro-B Natriuret Pep 8130 H* (<=450) pg/mL Total Protein (6.0-8.0) g/dL Albumin (3.2-4.6) g/dL Globulin g/dL Albumin/Globulin Ratio Vitamin B12 (193-986) pg/mL TSH, Ultra Sensitive (0.36-3.74) IU/mL Urine Color (YELLOW) Urine Appearance (CLEAR) Urine pH (5.0-6.5) Ur Specific [place] (1.010-1.025) Urine Protein (NEGATIVE) mg/dL Urine Glucose (UA) (NEGATIVE) mg/dL Urine Ketones (NEGATIVE) mg/dL Urine Occult Blood (NEGATIVE) Urine Nitrite (NEGATIVE) Urine Bilirubin (NEGATIVE) Urine Urobilinogen (NEGATIVE) mg/dL Ur Leukocyte Esterase (NEGATIVE) Urine RBC (0) Urine WBC (0) Ur Squamous Epith Cells (NS,R,O) Urine Bacteria (NS) Fine Granular Casts (NS) Coarse Granular Casts (NS) Blood Type A POSITIVE Gel Antibody Screen Negative Crossmatch See Detail 04/28/17 04/28/17 04/28/17 Range/Units 12:30 13:26 17:08 WBC (4.5-12.0) X10-3/uL RBC (3.23-5.20) x10(6)uL Hgb (11.5-15.5) g/dL Hct (30.0-51.3) % MCV (80-96) fL MCH (27.7-33.6) pg MCHC (32.2-35.4) g/dL RDW (11.5-15.5) % Plt Count (125-369) X10(3)uL MPV (7.4-10.4) fL Neut % (Auto) (46-82) % Lymph % (Auto) (13-37) % Kaufman % (Auto) (4-12) % Eos % (Auto) (1.0-5.0) % Baso % (Auto) (0-2) % Neut # (Auto) (1.6-8.3) # Lymph # (Auto) (0.6-5.0) # Kaufman # (Auto) (0.0-1.3) # Eos # (Auto) (0.0-0.8) # Baso # (Auto) (0.0-0.2) # PT (8.7-11.1) INR (0.89-1.13) Sodium (135-145) mmol/L Potassium (3.5-5.3) mmol/L Chloride (100-110) mmol/L Carbon Dioxide (21-32) mmol/L BUN (7-18) mg/dL Creatinine (0.55-1.02) mg/dL Est Cr Clr Drug Dosing mL/min Estimated GFR (MDRD) (>60) BUN/Creatinine Ratio (9-20) Glucose (80-116) mg/dL POC Glucose 184 H (80-116) mg/dL Hemoglobin A1c (4.5-6.2) % Calcium (8.6-10.2) mg/dL Total Bilirubin (0.1-1.3) mg/dL AST (5-25) IU/L ALT (12-36) U/L Alkaline Phosphatase (56-112) IU/L NT-Pro-B Natriuret Pep (<=450) pg/mL Total Protein (6.0-8.0) g/dL Albumin (3.2-4.6) g/dL Globulin g/dL Albumin/Globulin Ratio Vitamin B12 (193-986) pg/mL TSH, Ultra Sensitive 6.32 H (0.36-3.74) IU/mL Urine Color Yellow (YELLOW) Urine Appearance Clear (CLEAR) Urine pH 5.0 (5.0-6.5) Ur Specific [place] 1.010 (1.010-1.025) Urine Protein Negative (NEGATIVE) mg/dL Urine Glucose (UA) Normal (NEGATIVE) mg/dL Urine Ketones Negative (NEGATIVE) mg/dL Urine Occult Blood Negative (NEGATIVE) Urine Nitrite Negative (NEGATIVE) Urine Bilirubin Negative (NEGATIVE) Urine Urobilinogen Normal (NEGATIVE) mg/dL Ur Leukocyte Esterase Negative (NEGATIVE) Urine RBC 0-5 (0) Urine WBC 0-5 (0) Ur Squamous Epith Cells Few H (NS,R,O) Urine Bacteria Moderate H (NS) Fine Granular Casts Few H (NS) Coarse Granular Casts Few H (NS) Blood Type Gel Antibody Screen Crossmatch 04/28/17 04/29/17 04/29/17 Range/Units 20:52 06:01 09:15 WBC 2.9 L (4.5-12.0) X10-3/uL RBC 3.55 (3.23-5.20) x10(6)uL Hgb 9.3 L (11.5-15.5) g/dL Hct 29.3 L (30.0-51.3) % MCV 82.6 (80-96) fL MCH 26.3 L (27.7-33.6) pg MCHC 31.8 L (32.2-35.4) g/dL RDW 15.2 (11.5-15.5) % Plt Count 178 (125-369) X10(3)uL MPV (7.4-10.4) fL Neut % (Auto) (46-82) % Lymph % (Auto) (13-37) % Kaufman % (Auto) (4-12) % Eos % (Auto) (1.0-5.0) % Baso % (Auto) (0-2) % Neut # (Auto) (1.6-8.3) # Lymph # (Auto) (0.6-5.0) # Kaufman # (Auto) (0.0-1.3) # Eos # (Auto) (0.0-0.8) # Baso # (Auto) (0.0-0.2) # PT (8.7-11.1) INR (0.89-1.13) Sodium (135-145) mmol/L Potassium (3.5-5.3) mmol/L Chloride (100-110) mmol/L Carbon Dioxide (21-32) mmol/L BUN (7-18) mg/dL Creatinine (0.55-1.02) mg/dL Est Cr Clr Drug Dosing mL/min Estimated GFR (MDRD) (>60) BUN/Creatinine Ratio (9-20) Glucose (80-116) mg/dL POC Glucose 201 H 111 D (80-116) mg/dL Hemoglobin A1c (4.5-6.2) % Calcium (8.6-10.2) mg/dL Total Bilirubin (0.1-1.3) mg/dL AST (5-25) IU/L ALT (12-36) U/L Alkaline Phosphatase (56-112) IU/L NT-Pro-B Natriuret Pep (<=450) pg/mL Total Protein (6.0-8.0) g/dL Albumin (3.2-4.6) g/dL Globulin g/dL Albumin/Globulin Ratio Vitamin B12 (193-986) pg/mL TSH, Ultra Sensitive (0.36-3.74) IU/mL Urine Color (YELLOW) Urine Appearance (CLEAR) Urine pH (5.0-6.5) Ur Specific [place] (1.010-1.025) Urine Protein (NEGATIVE) mg/dL Urine Glucose (UA) (NEGATIVE) mg/dL Urine Ketones (NEGATIVE) mg/dL Urine Occult Blood (NEGATIVE) Urine Nitrite (NEGATIVE) Urine Bilirubin (NEGATIVE) Urine Urobilinogen (NEGATIVE) mg/dL Ur Leukocyte Esterase (NEGATIVE) Urine RBC (0) Urine WBC (0) Ur Squamous Epith Cells (NS,R,O) Urine Bacteria (NS) Fine Granular Casts (NS) Coarse Granular Casts (NS) Blood Type Gel Antibody Screen Crossmatch 04/29/17 04/29/17 04/29/17 Range/Units 09:15 09:15 09:15 WBC (4.5-12.0) X10-3/uL RBC (3.23-5.20) x10(6)uL Hgb (11.5-15.5) g/dL Hct (30.0-51.3) % MCV (80-96) fL MCH (27.7-33.6) pg MCHC (32.2-35.4) g/dL RDW (11.5-15.5) % Plt Count (125-369) X10(3)uL MPV (7.4-10.4) fL Neut % (Auto) (46-82) % Lymph % (Auto) (13-37) % Kaufman % (Auto) (4-12) % Eos % (Auto) (1.0-5.0) % Baso % (Auto) (0-2) % Neut # (Auto) (1.6-8.3) # Lymph # (Auto) (0.6-5.0) # Kaufman # (Auto) (0.0-1.3) # Eos # (Auto) (0.0-0.8) # Baso # (Auto) (0.0-0.2) # PT 22.4 H (8.7-11.1) INR 2.18 H (0.89-1.13) Sodium 135 (135-145) mmol/L Potassium 3.4 L (3.5-5.3) mmol/L Chloride 98 L (100-110) mmol/L Carbon Dioxide 28 (21-32) mmol/L BUN 28 H (7-18) mg/dL Creatinine 1.3 H (0.55-1.02) mg/dL Est Cr Clr Drug Dosing 28.31 mL/min Estimated GFR (MDRD) 39 L (>60) BUN/Creatinine Ratio 21.5 H (9-20) Glucose 236 H (80-116) mg/dL POC Glucose (80-116) mg/dL Hemoglobin A1c (4.5-6.2) % Calcium 8.9 (8.6-10.2) mg/dL Total Bilirubin (0.1-1.3) mg/dL AST (5-25) IU/L ALT (12-36) U/L Alkaline Phosphatase (56-112) IU/L NT-Pro-B Natriuret Pep 89846 H* (<=450) pg/mL Total Protein (6.0-8.0) g/dL Albumin (3.2-4.6) g/dL Globulin g/dL Albumin/Globulin Ratio Vitamin B12 (193-986) pg/mL TSH, Ultra Sensitive (0.36-3.74) IU/mL Urine Color (YELLOW) Urine Appearance (CLEAR) Urine pH (5.0-6.5) Ur Specific [place] (1.010-1.025) Urine Protein (NEGATIVE) mg/dL Urine Glucose (UA) (NEGATIVE) mg/dL Urine Ketones (NEGATIVE) mg/dL Urine Occult Blood (NEGATIVE) Urine Nitrite (NEGATIVE) Urine Bilirubin (NEGATIVE) Urine Urobilinogen (NEGATIVE) mg/dL Ur Leukocyte Esterase (NEGATIVE) Urine RBC (0) Urine WBC (0) Ur Squamous Epith Cells (NS,R,O) Urine Bacteria (NS) Fine Granular Casts (NS) Coarse Granular Casts (NS) Blood Type Gel Antibody Screen Crossmatch 04/29/17 04/29/17 04/29/17 Range/Units 09:15 11:23 17:09 WBC (4.5-12.0) X10-3/uL RBC (3.23-5.20) x10(6)uL Hgb (11.5-15.5) g/dL Hct (30.0-51.3) % MCV (80-96) fL MCH (27.7-33.6) pg MCHC (32.2-35.4) g/dL RDW (11.5-15.5) % Plt Count (125-369) X10(3)uL MPV (7.4-10.4) fL Neut % (Auto) (46-82) % Lymph % (Auto) (13-37) % Kaufman % (Auto) (4-12) % Eos % (Auto) (1.0-5.0) % Baso % (Auto) (0-2) % Neut # (Auto) (1.6-8.3) # Lymph # (Auto) (0.6-5.0) # Kaufman # (Auto) (0.0-1.3) # Eos # (Auto) (0.0-0.8) # Baso # (Auto) (0.0-0.2) # PT (8.7-11.1) INR (0.89-1.13) Sodium (135-145) mmol/L Potassium (3.5-5.3) mmol/L Chloride (100-110) mmol/L Carbon Dioxide (21-32) mmol/L BUN (7-18) mg/dL Creatinine (0.55-1.02) mg/dL Est Cr Clr Drug Dosing mL/min Estimated GFR (MDRD) (>60) BUN/Creatinine Ratio (9-20) Glucose (80-116) mg/dL POC Glucose 191 H D 65 L D (80-116) mg/dL Hemoglobin A1c (4.5-6.2) % Calcium (8.6-10.2) mg/dL Total Bilirubin (0.1-1.3) mg/dL AST (5-25) IU/L ALT (12-36) U/L Alkaline Phosphatase (56-112) IU/L NT-Pro-B Natriuret Pep (<=450) pg/mL Total Protein (6.0-8.0) g/dL Albumin (3.2-4.6) g/dL Globulin g/dL Albumin/Globulin Ratio Vitamin B12 685 (193-986) pg/mL TSH, Ultra Sensitive (0.36-3.74) IU/mL Urine Color (YELLOW) Urine Appearance (CLEAR) Urine pH (5.0-6.5) Ur Specific [place] (1.010-1.025) Urine Protein (NEGATIVE) mg/dL Urine Glucose (UA) (NEGATIVE) mg/dL Urine Ketones (NEGATIVE) mg/dL Urine Occult Blood (NEGATIVE) Urine Nitrite (NEGATIVE) Urine Bilirubin (NEGATIVE) Urine Urobilinogen (NEGATIVE) mg/dL Ur Leukocyte Esterase (NEGATIVE) Urine RBC (0) Urine WBC (0) Ur Squamous Epith Cells (NS,R,O) Urine Bacteria (NS) Fine Granular Casts (NS) Coarse Granular Casts (NS) Blood Type Gel Antibody Screen Crossmatch 04/29/17 04/30/17 04/30/17 Range/Units 20:51 05:58 06:15 WBC (4.5-12.0) X10-3/uL RBC (3.23-5.20) x10(6)uL Hgb (11.5-15.5) g/dL Hct (30.0-51.3) % MCV (80-96) fL MCH (27.7-33.6) pg MCHC (32.2-35.4) g/dL RDW (11.5-15.5) % Plt Count (125-369) X10(3)uL MPV (7.4-10.4) fL Neut % (Auto) (46-82) % Lymph % (Auto) (13-37) % Kaufman % (Auto) (4-12) % Eos % (Auto) (1.0-5.0) % Baso % (Auto) (0-2) % Neut # (Auto) (1.6-8.3) # Lymph # (Auto) (0.6-5.0) # Kaufman # (Auto) (0.0-1.3) # Eos # (Auto) (0.0-0.8) # Baso # (Auto) (0.0-0.2) # PT 25.7 H (8.7-11.1) INR 2.49 H (0.89-1.13) Sodium (135-145) mmol/L Potassium (3.5-5.3) mmol/L Chloride (100-110) mmol/L Carbon Dioxide (21-32) mmol/L BUN (7-18) mg/dL Creatinine (0.55-1.02) mg/dL Est Cr Clr Drug Dosing mL/min Estimated GFR (MDRD) (>60) BUN/Creatinine Ratio (9-20) Glucose (80-116) mg/dL POC Glucose 94 53 L (80-116) mg/dL Hemoglobin A1c (4.5-6.2) % Calcium (8.6-10.2) mg/dL Total Bilirubin (0.1-1.3) mg/dL AST (5-25) IU/L ALT (12-36) U/L Alkaline Phosphatase (56-112) IU/L NT-Pro-B Natriuret Pep (<=450) pg/mL Total Protein (6.0-8.0) g/dL Albumin (3.2-4.6) g/dL Globulin g/dL Albumin/Globulin Ratio Vitamin B12 (193-986) pg/mL TSH, Ultra Sensitive (0.36-3.74) IU/mL Urine Color (YELLOW) Urine Appearance (CLEAR) Urine pH (5.0-6.5) Ur Specific [place] (1.010-1.025) Urine Protein (NEGATIVE) mg/dL Urine Glucose (UA) (NEGATIVE) mg/dL Urine Ketones (NEGATIVE) mg/dL Urine Occult Blood (NEGATIVE) Urine Nitrite (NEGATIVE) Urine Bilirubin (NEGATIVE) Urine Urobilinogen (NEGATIVE) mg/dL Ur Leukocyte Esterase (NEGATIVE) Urine RBC (0) Urine WBC (0) Ur Squamous Epith Cells (NS,R,O) Urine Bacteria (NS) Fine Granular Casts (NS) Coarse Granular Casts (NS) Blood Type Gel Antibody Screen Crossmatch 04/30/17 Range/Units 06:45 WBC (4.5-12.0) X10-3/uL RBC (3.23-5.20) x10(6)uL Hgb (11.5-15.5) g/dL Hct (30.0-51.3) % MCV (80-96) fL MCH (27.7-33.6) pg MCHC (32.2-35.4) g/dL RDW (11.5-15.5) % Plt Count (125-369) X10(3)uL MPV (7.4-10.4) fL Neut % (Auto) (46-82) % Lymph % (Auto) (13-37) % Kaufman % (Auto) (4-12) % Eos % (Auto) (1.0-5.0) % Baso % (Auto) (0-2) % Neut # (Auto) (1.6-8.3) # Lymph # (Auto) (0.6-5.0) # Kaufman # (Auto) (0.0-1.3) # Eos # (Auto) (0.0-0.8) # Baso # (Auto) (0.0-0.2) # PT (8.7-11.1) INR (0.89-1.13) Sodium (135-145) mmol/L Potassium (3.5-5.3) mmol/L Chloride (100-110) mmol/L Carbon Dioxide (21-32) mmol/L BUN (7-18) mg/dL Creatinine (0.55-1.02) mg/dL Est Cr Clr Drug Dosing mL/min Estimated GFR (MDRD) (>60) BUN/Creatinine Ratio (9-20) Glucose (80-116) mg/dL POC Glucose 112 (80-116) mg/dL Hemoglobin A1c (4.5-6.2) % Calcium (8.6-10.2) mg/dL Total Bilirubin (0.1-1.3) mg/dL AST (5-25) IU/L ALT (12-36) U/L Alkaline Phosphatase (56-112) IU/L NT-Pro-B Natriuret Pep (<=450) pg/mL Total Protein (6.0-8.0) g/dL Albumin (3.2-4.6) g/dL Globulin g/dL Albumin/Globulin Ratio Vitamin B12 (193-986) pg/mL TSH, Ultra Sensitive (0.36-3.74) IU/mL Urine Color (YELLOW) Urine Appearance (CLEAR) Urine pH (5.0-6.5) Ur Specific [place] (1.010-1.025) Urine Protein (NEGATIVE) mg/dL Urine Glucose (UA) (NEGATIVE) mg/dL Urine Ketones (NEGATIVE) mg/dL Urine Occult Blood (NEGATIVE) Urine Nitrite (NEGATIVE) Urine Bilirubin (NEGATIVE) Urine Urobilinogen (NEGATIVE) mg/dL Ur Leukocyte Esterase (NEGATIVE) Urine RBC (0) Urine WBC (0) Ur Squamous Epith Cells (NS,R,O) Urine Bacteria (NS) Fine Granular Casts (NS) Coarse Granular Casts (NS) Blood Type Gel Antibody Screen Crossmatch Med Orders - Current: Current Medications Hydrocodone Bitart/Acetaminophen ([place] 325-5 Mg) 1 tab PO Q6H PRN PRN Reason: right should pain Ferrous Gluconate (Ferrous Gluconate) 324 mg PO DAILY [facility] Last Admin: 04/30/17 09:11 Dose: 324 mg Furosemide (Lasix) 20 mg IVPUSH ONETIME PRN PRN Reason: Edema Furosemide (Lasix) 40 mg PO DAILY [facility] Last Admin: 04/30/17 09:11 Dose: 40 mg Glimepiride (Amaryl) 1 mg PO WITHBREAKFAST [facility] Last Admin: 04/30/17 09:08 Dose: 1 mg Sodium Chloride (Normal Saline) 250 mls @ 100 mls/hr IV ASDIRECTED [facility] Insulin Aspart (Novolog) 0 unit SUBCUT QIDACANDBED [facility] PRN Reason: Protocol Last Admin: 04/30/17 07:54 Dose: Not Given Levothyroxine Sodium (Synthroid) 88 mcg PO 0600 [facility] Last Admin: 04/30/17 05:08 Dose: 88 mcg Lisinopril (Prinivil) 20 mg PO DAILY [facility] Last Admin: 04/30/17 09:11 Dose: 20 mg Lorazepam (Ativan) 0.5 mg PO Q8H PRN PRN Reason: Anxiety Nebivolol (Bystolic) 10 mg PO DAILY [facility] Last Admin: 04/30/17 09:08 Dose: 10 mg Warfarin Sodium (Coumadin) 2.5 mg PO 1600 [facility] Last Admin: 04/29/17 16:27 Dose: 2.5 mg Zolpidem Tartrate (Ambien) 5 mg PO BEDTIME PRN PRN Reason: Sleep Discontinued Medications Furosemide (Lasix) 20 mg IVPUSH ONETIME ONE Stop: 04/28/17 16:32 Last Admin: 04/28/17 16:57 Dose: 20 mg Glimepiride (Glimepiride) 1 mg PO WITHBREAKFAST [facility] Last Admin: 04/29/17 12:44 Dose: 1 mg - Exam Physical Findings Comments:: General: Alert, Oriented, no distress, smiling making good eye contact. HEENT: Conjunctiva Clear normal tear film, oral mucosa is pink and moist. There is no scleral icterus. Neck:Supple, Trachea Midline. No: JVD Lungs: Normal Respiratory Effort, clear throughout Cardiovascular: Regular Rate, Regular Rhythm, Systolic Murmur (3-4/6 ruslan radiating throughout precordium). No: Rubs, Gallop/S3, Gallop/S4 GI/Abdominal Exam: Normal Bowel Sounds, Soft, Non-Tender Back Exam: Normal Inspection. No: CVA Tenderness (R), CVA Tenderness (L), Muscle Spasm Extremities: Warmth, Redness greatly reduced. (bilateral ankles to mid shins/ mild. edema 1-2+ with stasis dermatitis. no weeping or open wounds. Symmetric edema. ) Tolerating Juancarlos wraps. Skin is dry so will add lotion. Skin: Skin is improved in coloration no longer pale. No: Wound, ecchymosis, petechiae or purpura. Psychiatric: Normal affect, mood slightly anxious but much better than on admission - Problem List & Annotations (1) Complaint of debility and malaise SNOMED Code(s): 409281448 Code(s): R53.81 - OTHER MALAISE Status: Acute Current Visit: Yes (2) Acute on chronic renal failure SNOMED Code(s): 060576891 Code(s): N17.9 - ACUTE KIDNEY FAILURE, UNSPECIFIED; N18.9 - CHRONIC KIDNEY DISEASE, UNSPECIFIED Status: Acute Current Visit: Yes (3) Microcytic hypochromic anemia SNOMED Code(s): 99479387 Code(s): D50.9 - IRON DEFICIENCY ANEMIA, UNSPECIFIED Status: Chronic Current Visit: Yes (4) Weakness of both lower extremities SNOMED Code(s): 1400985 Code(s): R29.898 - [facility] SYMPTOMS AND SIGNS INVOLVING THE MUSCULOSKELETAL SYSTEM Status: Acute Current Visit: Yes (5) CHF, Congestive heart failure SNOMED Code(s): 71117257 Code(s): I50.9 - HEART FAILURE, UNSPECIFIED Status: Chronic Current Visit : Yes Annotation/Comment:: Admit to In Pt (6) Palliative care status SNOMED Code(s): 802284486 Code(s): Z51.5 - ENCOUNTER FOR PALLIATIVE CARE Status: Acute Current Visit: Yes (7) Elevated brain natriuretic peptide (BNP) level SNOMED Code(s): 330989746 Code(s): R79.89 - OTHER SPECIFIED ABNORMAL FINDINGS OF BLOOD CHEMISTRY Status: Acute Current Visit: Yes (8) Venous stasis dermatitis of both lower extremities SNOMED Code(s): 60075946 Code(s): I87.2 - VENOUS INSUFFICIENCY (CHRONIC) (PERIPHERAL) Status: Chronic Current Visit: Yes (9) Blood transfusion during current hospitalisation SNOMED Code(s): 028750654 Code(s): XOD8668 - Status: Acute Current Visit: Yes Onset Date: Annotation/Comment:: 1 unit given with minimal increase in temp, s/s of transfusion rxn. pt tolerated well. (10) Hypothyroidism SNOMED Code(s): 71336953 Code(s): E03.9 - HYPOTHYROIDISM, UNSPECIFIED Status: Chronic Current Visit: Yes (11) H/O deep venous thrombosis SNOMED Code(s): 619920181 Code(s): Z86.718 - PERSONAL HISTORY OF OTHER VENOUS THROMBOSIS AND EMBOLISM Status: Chronic Current Visit: Yes (12) [facility] (current) use of anticoagulants SNOMED Code(s): 757131856 Code(s): Z79.01 - [employer] (CURRENT) USE OF ANTICOAGULANTS Status: Acute Current Visit: Yes (13) Diabetes type 2, controlled SNOMED Code(s): 60130409 Code(s): E11.9 - TYPE 2 DIABETES MELLITUS WITHOUT COMPLICATIONS Status: Chronic Current Visit: Yes Qualifiers: Diabetes mellitus complication status: without complication Diabetes mellitus senior care insulin use: with extermination inspector use Qualified Code(s): E11.9 - Type 2 diabetes mellitus without complications; Z79.4 - rodent exterminator (current) use of insulin; Z79.4 - rodent exterminator (current) use of insulin; Z79.4 - [facility] ( current) use of insulin; Z79.4 - [facility] (current) use of insulin (14) HTN (hypertension) SNOMED Code(s): 85383853 Code(s): I10 - ESSENTIAL (PRIMARY) HYPERTENSION Status: Chronic Current Visit: Yes Qualifiers: Hypertension type: essential hypertension Qualified Code(s): I10 - Essential (primary) hypertension - Problem List Review Problem List Initiated/Reviewed/Updated: Yes - My Orders Last 24 Hours: My Active Orders 04/29/17 09:15 FERRITIN [REF] Routine FOLATE [REF] Routine IRON AND IRON BINDING CAPACITY [REF] Routine 04/29/17 10:00 Furosemide [Lasix] 40 mg PO DAILY Lisinopril [Prinivil] 20 mg PO DAILY Nebivolol [Bystolic] 10 mg PO DAILY 04/29/17 15:00 Acetaminophen/HYDROcodone [[place] 325-5 MG] 1 tab PO Q6H PRN 04/29/17 Lunch Consistent Carbohydrate Diet [DIET] 04/30/17 08:00 Glimepiride [Amaryl] 1 mg PO WITHBREAKFAST 05/01/17 05:11 BASIC METABOLIC PANEL,BMP [CHEM] AM CBC W/O DIFF,HEMOGRAM [HEME] AM - Assessment Assessment:: please see above - Plan Plan:: Dose adjusting/discontinuing home meds due to renal function and consistent weakness with intermittent low bp has had no ill effects. Stopped metformin and starting glimiperide low dose this am. carb consistent diet added to low sodium and fluid restriction. continue accu checks. cut out amlodipine due to venous stasis. cut out hctz due to electrolytes and cut loop diuretic lasix in half as she is making good urine. her bystolic was also cut in half as well. her b12 is normal and folate is pending. monitoring INR closely with med changes. blood transfusion brought hgb up to > 9 mg/dL. Only 1 unit given. continue JUANCARLOS wraps and elevation to legs. caution not to overload the heart. she clinically looking better each day and weight is down. will continue to monitor strict in/ outs. accurate weight measurements. chronic venous stasis dermatitis non infective improving. she will continue wraps until able to tolerate teds. disposition is fair to good. she is palliative care status. no longer safe in her own home, and will be going to [facility] tomorrow for continued palliative cares and medication management. will have pt/ot continue to work with her on ambulation and strengthening while overthere as well. Will d/c telemetry today. labs ordered for AM and is acceptible, anticipate discharge tomorrow.
[2017-04-30] MEDS: Warfarin 2.5 MG Tab PO SCH (16:26)
[2017-05-01] MEDS: Levothyroxine 88 MCG Tab PO SCH (05:37)
[2017-05-01] MEDS: Insulin Aspart 100 Units/ML 3 ML Pen SUBCUT SCH (08:47)
[2017-05-01] MEDS ORDERED: Tuberculin, PPD 5 Units/0.1 ML 1 ML MDV IDERM ONE (08:48)
[2017-05-01 09:18] VITALS: BP 118/60
[2017-05-01] MEDS: Glimepiride 2 MG Tab PO SCH (10:06)
[2017-05-01] MEDS: Lisinopril 20 MG Tab PO SCH (10:07)
[2017-05-01] MEDS: Furosemide 40 MG Tab PO SCH (10:07)
[2017-05-01] MEDS: Ferrous Gluconate 324 MG Tab PO SCH (10:07)
--- NOTE | 2017-05-01 10:12 | PCM.DCSUM1 ---
Discharge Summary - Hospital Course Free Text/Narrative:: Date of admission: 04/28/2017 Date of discharge: 05/01/2017 Admission diagnosis: Diastolic congestive heart failure acute exacerbation with bilateral pedal edema. Discharge diagnosis: Same Secondary diagnoses: #1 diabetes mellitus type 2 #2 anemia chronic. Patient transfused 1 unit packed red blood cells during hospitalization with discharge hemoglobin of 10.4. #3 chronic stasis dermatitis with significant edema on admission, significantly improved after a strapping during hospitalization. 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 Other diagnoses not addressed during hospitalization: Osteoarthritis, history of CVA, obesity, hypothyroidism, chronic kidney disease with stable creatinine of 1.4. Consults: None Procedures: Transfusion 1 unit packed red blood cells. History of present illness: The patient is an 81-year-old female who lives at home in assisted living who presented with weakness and the inability to get off the toilet. She did not fall. Additional loss of consciousness. She had no injury. She pressed her Lif[facility] and was brought into the emergency department. She was found to have increased lower extremity edema. It was felt with hospitalization and assessment with the patient was no longer able to care for herself at home and so placement was pursued at a long-term care facility. Hospital course: Patient did very well throughout her hospitalization. After receiving 1 unit packed red blood cells, increased diuresis, and aggressive wrapping to the bilateral extremities, patient's strength improved, weakness improved. Her lower extremity edema improved significantly. Weight decreased from a high of 87 kg to 85 kg at discharge. Discharge instructions: Patient will be discharged to [facility]. She can be followed by occupational and physical therapy. She should eat a low-salt, controlled carbohydrate diabetic diet. She was kept on a 1500 mL fluid restriction during hospitalization and will need to be monitored for signs of hypovolemia with continued diuretic therapy as this may be less than she what she is accustomed to at home. This patient would benefit both cardiac gonzales and diabetic gonzales from a planned weight loss diet with a goal of 1-2 pounds per month weight loss. Follow up with Dr. Fink in 1 week. The day prior to this visit, she should have a CBC and a CMP done at the clinic for his review at the appointment. I did review the above changes with Dr. Fink by phone on the day of discharge. - Discharge Data Discharge Date: 05/01/17 Discharge Disposition: DC/Tfer to SNF 03 Condition: Fair - Discharge Diagnosis/Problem(s) (1) Diastolic congestive heart failure due to valvular disease SNOMED Code(s): 816480071 ICD Code: I38 - ENDOCARDITIS, VALVE UNSPECIFIED; I50.30 - UNSPECIFIED DIASTOLIC (CONGESTIVE) HEART FAILURE Status: Acute Current Visit: Yes Problem Details: Last echo in August 2016 showed preserved ejection fraction of 55% , grade 1 diastolic dysfunction, moderate to severe aortic stenosis. Patient saw cardiology in February but these notes are not available in EMR. A number of medication changes were made throughout hospitalization. I spoke with the patient's primary care provider, Dr. Fink. We agreed to continue Bystolic at 10 mg twice a day, lisinopril at half of previous dose now 20 mg daily, hold Norvasc 2.5 mg. Patient's hydrochlorothiazide was stopped and she has been continued on Lasix 40 mg daily. Given her diastolic dysfunction, spironolactone may be a reasonable addition as an outpatient but I question how much of her diastolic dysfunction is related to her aortic stenosis. Cardiology consultation recommendations will be helpful in making further recommendations. (2) intermodal customer service (current) use of anticoagulants SNOMED Code(s): 455491058 ICD Code: Z79.01 - HALFWAY (CURRENT) USE OF ANTICOAGULANTS Status: Acute Current Visit: Yes Problem Details: Secondary to history of DVT with need for lifelong therapy. Although the patient had an increased INR of 6.1 in the recent past, INR has been well-controlled here and is 2.5 today. The patient may be a good candidate for Eliquis therapy if she continues to struggle with INR maintenance. We will defer this to the patient's primary care provider. (3) Diabetes type 2, controlled SNOMED Code(s): 35803520 ICD Code: E11.9 - TYPE 2 DIABETES MELLITUS WITHOUT COMPLICATIONS Status: Chronic Current Visit: Yes Problem Details: Patient's last A1c was 7.2 on metformin 500 mg daily alone. This was stopped here and she was started on Amaryl. It's not entirely clear to me why. I'm going to resume her metformin on discharge. The patient did have a low blood sugar with symptoms the morning of discharge on the Amaryl. She may be a better candidate for Januvia if something additional needs to be added instead of a sulfonylurea. Qualifiers: Diabetes mellitus complication status: without complication Diabetes mellitus termite technician insulin use: with termite technician use Qualified Code(s): E11.9 - Type 2 diabetes mellitus without complications; Z79.4 - MCC (current) use of insulin; Z79.4 - intermodal customer service (current) use of insulin; Z79.4 - intermodal customer service ( current) use of insulin; Z79.4 - intermodal customer service (current) use of insulin (4) H/O deep venous thrombosis SNOMED Code(s): 293151805 ICD Code: Z86.718 - PERSONAL HISTORY OF OTHER VENOUS THROMBOSIS AND EMBOLISM Status: Chronic Current Visit: Yes Problem Details: On warfarin. See above. (5) HTN (hypertension) SNOMED Code(s): 09210810 ICD Code: I10 - ESSENTIAL (PRIMARY) HYPERTENSION Status: Chronic Current Visit: Yes Problem Details: Patient's documented blood pressures were controlled to 130s here in the hospital with her medications held/decreased. Good blood pressure control is a cornerstone of diastolic dysfunction therapy. Dr. Fink is aware of the medication changes and will follow up on these in the outpatient setting and resume medications as needed. Qualifiers: Hypertension type: essential hypertension Qualified Code(s): I10 - Essential (primary) hypertension (6) Hypothyroidism SNOMED Code(s): 90741375 ICD Code: E03.9 - HYPOTHYROIDISM, UNSPECIFIED Status: Chronic Current Visit: Yes Problem Details: Continued on her home dose of 88 g Synthroid in the hospital. (7) Microcytic hypochromic anemia SNOMED Code(s): 29430174 ICD Code: D50.9 - IRON DEFICIENCY ANEMIA, UNSPECIFIED Status: Chronic Current Visit: Yes Problem Details: Patient's anemia was in the low 8 range on admission. She normally runs 8-9 in the outpatient setting. Due to her weakness and fatigue she was given 1 unit packed red blood cells. Hemoglobin on discharge was 10.4. MCV was above 80 on admission. (8) Venous stasis dermatitis of both lower extremities SNOMED Code(s): 07410949 ICD Code: I87.2 - VENOUS INSUFFICIENCY (CHRONIC) (PERIPHERAL) Status: Chronic Current Visit: Yes Problem Details: Much improved with Juancarlos wraps. Compression is lockhart for treatment of this lower extremity edema to prevent stasis ulcers. Patient should continue Juancarlos wraps when out of bed and/or compression hose and keep legs elevated when able. (9) CKD (chronic kidney disease), stage III SNOMED Code(s): 971458811 ICD Code: N18.3 - CHRONIC KIDNEY DISEASE, STAGE 3 (MODERATE) Status: Acute Current Visit: Yes Problem Details: Baseline creatinine is 1.4 range which is where she was here. Continue to monitor. (10) CAD (coronary artery disease) SNOMED Code(s): 33529797 ICD Code: I25.10 - ATHSCL HEART DISEASE OF [place] CORONARY ARTERY W/O ANG PCTRS Status: Acute Current Visit: Yes Problem Details: Patient currently on statin. Complaining of myalgias. I'm going to hold the statin for now but did discuss with Dr. Fink and he will determine whether or not the patient would benefit long-term from continued statin therapy. - Patient Summary/Data Consults: Consultations 04/28/17 14:58 Consult to Internal Medicine Hospitalist [CONS] Routine Comment: Physician Instructions: Reason for Consult: evaluate for long term placement. OT Evaluation and Treatment [CONS] Routine Please Evaluate and Treat. OT Reason for Consult: Discharge Planning This query below is only for informational purposes and is not editable. Admission Diagnosis/Problem: Congestive heart failure PT Evaluation and Treatment [CONS] Routine Please Evaluate and Treat. PT Reason for Consult: Strengthening This query below is only for informational purposes and is not editable. Admission Diagnosis/Problem: Congestive heart failure - Patient Instructions Diet: Heart Healthy Diet, Low Sodium, Fluid Restriction (1500 ml), Diabetic Diet Fluid Restriction: 1500 mL - Discharge Plan Prescriptions/Med Rec: Lisinopril [Prinivil] 20 mg PO DAILY #30 tablet Home Medications: Home Meds Multivitamin with Minerals [Multiple Vitamin] 2 tab PO DAILY 02/16/13 [History] Nebivolol [Bystolic] 10 mg PO BID 02/16/13 [History] Triamcinolone Acetonide [Kenalog 0.1% Crm] 15 gm .XX BID PRN 02/16/13 [History] Vit A/Vit C/Vit E/Zinc/Copper [Preservision Areds Softgel] 1 each PO PCLUNCH [History] Warfarin [Coumadin] 2.5 mg PO 1600 02/09/14 [History] Ketotifen Fumarate [Zaditor] 1 drop EYEBOTH BID PRN 02/27/16 [History] Calcium Carbonate [Calcium] 600 mg PO 02/28/16 [History] Furosemide [Lasix] 40 mg PO DAILY #15 tablet 09/01/16 [Rx] Levothyroxine [Synthroid] 88 mcg PO ACBREAKFAST 09/01/16 [History] Ferrous Gluconate 324 mg PO DAILY 04/28/17 [History] Lisinopril [Prinivil] 20 mg PO DAILY #30 tablet 05/01/17 [Rx] metFORMIN HCl [Glucophage] 500 mg PO PCLUNCH #30 05/01/17 [Rx] Patient Handouts: Heart Failure, [id number], Fall Prevention in Hospitals, Adult, Venous Thromboembolism Prevention, Glimepiride tablets Forms: ED Department Discharge Referrals: Samantha Foster [facility] [Primary Care Provider] - - Discharge Summary/Plan Comment DC Time >30 min.: Yes - Patient Data Vitals - Most Recent: Last Vital Signs Temp 36.9 C 05/01/17 08:50 Pulse 70 05/01/17 10:07 Resp 18 05/01/17 08:50 BP 118/60 05/01/17 10:07 Pulse Ox 98 05/01/17 08:50 Orthostatic Blood Pressure [ 128/60 Standing] Orthostatic Blood Pressure [ 120/56 Sitting] Orthostatic Blood Pressure [ 110/58 Supine] Weight - Most Recent: 85.729 kg I&O - Last 24 hours: Intake & Output 04/30/17 05/01/17 05/01/17 22:59 06:59 14:59 Intake Total 290 125 Output Total 0 Balance 290 125 Lab Results - Last 24 hrs: Laboratory Results - last 24 hr 04/30/17 04/30/17 05/01/17 Range/Units 17:04 20:30 05:30 WBC (4.5-12.0) X10-3/uL RBC (3.23-5.20) x10(6)uL Hgb (11.5-15.5) g/dL Hct (30.0-51.3) % MCV (80-96) fL MCH (27.7-33.6) pg MCHC (32.2-35.4) g/dL RDW (11.5-15.5) % Plt Count (125-369) X10(3)uL Sodium (135-145) mmol/L Potassium (3.5-5.3) mmol/L Chloride (100-110) mmol/L Carbon Dioxide (21-32) mmol/L BUN (7-18) mg/dL Creatinine (0.55-1.02) mg/dL Est Cr Clr Drug Dosing mL/min Estimated GFR (MDRD) (>60) BUN/Creatinine Ratio (9-20) Glucose (80-116) mg/dL POC Glucose 158 H 156 H 70 L D (80-116) mg/dL Calcium (8.6-10.2) mg/dL 05/01/17 05/01/17 Range/Units 06:20 06:20 WBC 3.7 L (4.5-12.0) X10-3/uL RBC 3.73 (3.23-5.20) x10(6)uL Hgb 10.4 L (11.5-15.5) g/dL Hct 31.2 (30.0-51.3) % MCV 83.5 (80-96) fL MCH 27.8 (27.7-33.6) pg MCHC 33.3 (32.2-35.4) g/dL RDW 15.9 H (11.5-15.5) % Plt Count 187 (125-369) X10(3)uL Sodium 137 (135-145) mmol/L Potassium 3.7 (3.5-5.3) mmol/L Chloride 99 L (100-110) mmol/L Carbon Dioxide 28 (21-32) mmol/L BUN 27 H (7-18) mg/dL Creatinine 1.4 H (0.55-1.02) mg/dL Est Cr Clr Drug Dosing 26.29 mL/min Estimated GFR (MDRD) 36 L (>60) BUN/Creatinine Ratio 19.3 (9-20) Glucose 125 H D (80-116) mg/dL POC Glucose (80-116) mg/dL Calcium 8.8 (8.6-10.2) mg/dL Med Orders - Current: Current Medications Hydrocodone Bitart/Acetaminophen ([place] 325-5 Mg) 1 tab PO Q6H PRN PRN Reason: right should pain Ferrous Gluconate (Ferrous Gluconate) 324 mg PO DAILY [facility] Last Admin: 05/01/17 10:07 Dose: 324 mg Furosemide (Lasix) 20 mg IVPUSH ONETIME PRN PRN Reason: Edema Furosemide (Lasix) 40 mg PO DAILY [facility] Last Admin: 05/01/17 10:07 Dose: 40 mg Glimepiride (Amaryl) 1 mg PO WITHBREAKFAST [facility] Last Admin: 05/01/17 10:06 Dose: Not Given Sodium Chloride (Normal Saline) 250 mls @ 100 mls/hr IV ASDIRECTED [facility] Insulin Aspart (Novolog) 0 unit SUBCUT QIDACANDBED [facility] PRN Reason: Protocol Last Admin: 05/01/17 08:47 Dose: Not Given Levothyroxine Sodium (Synthroid) 88 mcg PO 0600 [facility] Last Admin: 05/01/17 05:37 Dose: 88 mcg Lisinopril (Prinivil) 20 mg PO DAILY [facility] Last Admin: 05/01/17 10:07 Dose: 20 mg Lorazepam (Ativan) 0.5 mg PO Q8H PRN PRN Reason: Anxiety Nebivolol (Bystolic) 10 mg PO DAILY [facility] Last Admin: 05/01/17 10:07 Dose: 10 mg Warfarin Sodium (Coumadin) 2.5 mg PO 1600 [facility] Last Admin: 04/30/17 16:26 Dose: 2.5 mg Zolpidem Tartrate (Ambien) 5 mg PO BEDTIME PRN PRN Reason: Sleep Discontinued Medications Furosemide (Lasix) 20 mg IVPUSH ONETIME ONE Stop: 04/28/17 16:32 Last Admin: 04/28/17 16:57 Dose: 20 mg Glimepiride (Glimepiride) 1 mg PO WITHBREAKFAST [facility] Last Admin: 04/29/17 12:44 Dose: 1 mg Tuberculin PPD (Aplisol) 5 unit IDERM ONETIME ONE Stop: 05/01/17 08:49 Last Admin: 05/01/17 10:00 Dose: 5 unit *Q Meaningful Use (DIS) - VTE *Q VTE Criteria *Q: - Stroke *Q Stroke Criteria *Q: - AMI *Q AMI Criteria *Q:
[2017-05-03 10:53] LABS: UNSATURATED IRON BIND CAPACITY 270 ug/dL (112-347)
== END 2017-05-01 10:29 | DRG 291 ==
LOC: FB.MS 14:24
PROVIDERS: ADMIT Family Medicine; ATTEND Family Medicine
PROC: 30233N1 Transfusion of Nonautologous Red Blood Cells into Peripheral Vein, Percutaneous Approach (ICD-10-PCS; principal; 2017-04-28)
DX: I13.0 Hypertensive heart and chronic kidney disease with heart failure and stage 1 through stage 4 chronic kidney disease, or unspecified chronic kidney disease (principal); I50.31 Acute diastolic (congestive) heart failure; N17.9 Acute kidney failure, unspecified; N18.3 Chronic kidney disease, stage 3 (moderate); E11.22 Type 2 diabetes mellitus with diabetic chronic kidney disease; E03.9 Hypothyroidism, unspecified; R29.898 Other symptoms and signs involving the musculoskeletal system; R29.6 Repeated falls; Z86.718 Personal history of other venous thrombosis and embolism; D50.9 Iron deficiency anemia, unspecified; Z51.5 Encounter for palliative care; R79.89 Other specified abnormal findings of blood chemistry; R53.81 Other malaise; Z79.01 Long term (current) use of anticoagulants; Z79.84 Long term (current) use of oral hypoglycemic drugs; Z87.891 Personal history of nicotine dependence; R53.1 Weakness; I35.0 Nonrheumatic aortic (valve) stenosis; E78.00 Pure hypercholesterolemia, unspecified; Z86.73 Personal history of transient ischemic attack (TIA), and cerebral infarction without residual deficits; I87.2 Venous insufficiency (chronic) (peripheral); M19.90 Unspecified osteoarthritis, unspecified site; H54.7 Unspecified visual loss; Z88.1 Allergy status to other antibiotic agents
CPT/HCPCS: 36415; 36430; 71045; 80048; 80053; 81001; 82272; 82607; 82728; 82746; 82962; 83036; 83540; 83550; 83880; 84443; 85025; 85027; 85610; 86580; 86850; 86900; 86901; 86920; 86922; 97110-GP; 97161-GP; 97165-GO; 97530-GO-KX; 99284; 99285; A9270-GY; J1940; P9016

== ENCOUNTER 2017-06-17 20:09 | Emergency (ER) | payer MEDICARE, OTHER ==
[2017-06-17] MEDS ORDERED: Furosemide 40 MG/4 ML VIAL IVPUSH ONE ×2 (20:31→21:32)
[2017-06-17] MEDS ORDERED: Sodium Chloride 0.9% 10 ML Syringe FLUSH PRN (20:32)
[2017-06-17] MEDS ORDERED: Albuterol/Ipratropium 3.0-0.5 MG/3 ML Neb Soln NEB ONE (20:33)
[2017-06-17] MEDS ORDERED: Furosemide 40 MG/4 ML VIAL ONE (20:39)
--- NOTE | 2017-06-17 20:49 | EDM.PDOC ---
ED HPI GENERAL MEDICAL PROBLEM - General Chief Complaint: Respiratory Problem Stated Complaint: SOB Time Seen by Provider: 06/17/17 20:20 Source of Information: Reports: Patient History Limitations: Reports: No Limitations - History of Present Illness INITIAL COMMENTS - FREE TEXT/NARRATIVE: c/o sob x 4d no fever, saw PCP Dr Fink yesterday and begun on antbx labs obtained yesterday by Dr Fink, will check with [facility] for test results last labs here with wbc 3.s, hgb 9.1 and plts 173 62 ago. INR 2.49 6w ago, BUN/ creat 26/1.0 62 ago, A1C 7.2 62 ago, AST/ALT /18 62 ago, CRP 2.3 9m, u/a mod bact 62 ago denies pain, no CASEY, no CP, no abd pain h/o dHF, CAD Upper Chest Pain Score (Numeric/FACES): 4 - Related Data Allergies Allergy/AdvReac Type Severity Reaction Status Date / Time ciprofloxacin [From Cipro] Allergy Rash Verified 06/17/17 20:31 ciprofloxacin HCl Allergy Rash Verified 06/17/17 20:31 [From Cipro] Home Meds: Home Meds Multivitamin with Minerals [Multiple Vitamin] 2 tab PO DAILY 02/16/13 [History] Nebivolol [Bystolic] 10 mg PO BID 02/16/13 [History] Triamcinolone Acetonide [Kenalog 0.1% Crm] 15 gm .XX BID PRN 02/16/13 [History] Vit A/Vit C/Vit E/Zinc/Copper [Preservision Areds Softgel] 1 each PO PCLUNCH [History] Warfarin [Coumadin] 2.5 mg PO 1600 02/09/14 [History] Ketotifen Fumarate [Zaditor] 1 drop EYEBOTH BID PRN 02/27/16 [History] Calcium Carbonate [Calcium] 600 mg PO 02/28/16 [History] Furosemide [Lasix] 40 mg PO DAILY #15 tablet 09/01/16 [Rx] Levothyroxine [Synthroid] 88 mcg PO ACBREAKFAST 09/01/16 [History] Ferrous Gluconate 324 mg PO DAILY 04/28/17 [History] Lisinopril [Prinivil] 20 mg PO DAILY #30 tablet 05/01/17 [Rx] metFORMIN HCl [Glucophage] 500 mg PO PCLUNCH #30 05/01/17 [Rx] Past Medical History HEENT History: Reports: Cataract, Impaired Vision Cardiovascular History: Reports: Blood Clots/VTE/DVT, Heart Failure, Heart Murmur, High Cholesterol, Hypertension Respiratory History: Reports: None Gastrointestinal History: Reports: Diverticulosis Genitourinary History: Reports: Urinary Incontinence, Other (See Below) Other Genitourinary History: A&P REPAIR, DYSFUNCTIONAL UTERINE BLEEDING. 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, Other OB/BYN History: II PARA II Musculoskeletal History: Reports: Osteoarthritis Neurological History: Reports: CVA Psychiatric History: Reports: None Endocrine/Metabolic History: Reports: Diabetes, Type II, Hypothyroidism, Obesity /BMI 30+ Hematologic History: Reports: Anemia Other Hematologic History: POST SURGICAL FROM DUB Immunologic History: Reports: None Oncologic (Cancer) History: Reports: None Dermatologic History: Reports: Venous Stasis Dermatitis - Infectious Disease History Infectious Disease History: Reports: Chicken Pox, Measles, Mumps - Past Surgical History Head Surgeries/Procedures: Reports: None HEENT Surgical History: Reports: Cataract Surgery GI Surgical History: Reports: Appendectomy, Cholecystectomy, Colon, Colonoscopy , Hernia, Abdominal, Hernia Repair/Other Female Surgical History: Reports: D&C, Hysterectomy, Oophorectomy, Salpingo- Oophorectomy Social & Family History - Family History Other HEENT Family History: SEE HX - Tobacco Use Smoking Status *Q: Never Smoker Years of Tobacco use: 5 Packs/Tins Daily: 0.2 Used Tobacco, but Quit: Yes Month Tobacco Last Used: 04/20/1969 Second Hand Smoke Exposure: No - Caffeine Use Caffeine Use: Reports: Coffee Other Caffeine Use: 2 cups a day - Alcohol Use Days Per Week of Alcohol Use: 0 - Recreational Drug Use Recreational Drug Use: No ED ROS GENERAL - Review of Systems Review Of Systems: See Below Constitutional: Reports: No Symptoms HEENT: Reports: No Symptoms Respiratory: Reports: Shortness of Breath, Wheezing Cardiovascular: Reports: Edema. Denies: Chest Pain Endocrine: Reports: No Symptoms GI/Abdominal: Reports: No Symptoms : Reports: No Symptoms Musculoskeletal: Reports: No Symptoms Skin: Reports: No Symptoms Neurological: Reports: No Symptoms Psychiatric: Reports: No Symptoms Hematologic/Lymphatic: Reports: No Symptoms Immunologic: Reports: No Symptoms ED EXAM, GENERAL - Physical Exam Exam: See Below Exam Limited By: No Limitations General Appearance: Alert, WD/WN, Moderate Distress, Other (alert, conversant, speaks in 6 word sentences, nontoxic) Nose: Normal Inspection, Normal Mucosa, No Blood Throat/Mouth: Normal Inspection, Normal Lips, Normal Teeth Cardiovascular: No Rub, Tachycardia, Other (2/6 MARQUITA at LSB) Back Exam: Normal Inspection Extremities: Normal Inspection, Other (3+ tense edema to groin b/l) Neurological: Alert, CN II-XII Intact, No Motor/Sensory Deficits Skin Exam: Warm, Dry, Intact, Normal Color, No Rash Lymphatic: No Adenopathy Course - Vital Signs Last Recorded V/S: Last Vital Signs Temp 37.2 C 06/17/17 21:14 Pulse 86 06/17/17 21:14 Resp 28 H 06/17/17 21:14 BP 176/89 H 06/17/17 21:14 Pulse Ox 2 L 06/17/17 21:14 - Orders/Labs/Meds Orders: Active Orders 24 hr Category Date Time Status EKG Documentation Completion [RC] ASDIRECTED Care 06/17/17 20:40 Ordered RT Aerosol Therapy [RC] ASDIRECTED Care 06/17/17 20:34 Active Chest 1V Frontal [CR] Stat Exams 06/17/17 20:34 Ordered UA W/MICROSCOPIC [URIN] Stat Lab 06/17/17 20:37 Ordered Sodium Chloride 0.9% [Saline Flush] Med 06/17/17 20:32 Active 10 ml FLUSH ASDIRECTED PRN Saline Lock Insert [OM.PC] Routine Oth 06/17/17 20:32 Ordered EKG 12 Lead [EK] Routine Ther 06/17/17 20:37 Ordered Medication Orders Sodium Chloride (Saline Flush) 10 ml FLUSH ASDIRECTED PRN PRN Reason: Keep Vein Open Last Admin: 06/17/17 20:48 Dose: 10 ml Labs: Laboratory Tests 06/17/17 06/17/17 06/17/17 Range/Units 20:20 20:20 20:20 WBC 8.9 (4.5-12.0) X10-3/uL RBC 3.76 (3.23-5.20) x10(6)uL Hgb 9.7 L (11.5-15.5) g/dL Hct 30.4 (30.0-51.3) % MCV 80.7 (80-96) fL MCH 25.9 L (27.7-33.6) pg MCHC 32.1 L (32.2-35.4) g/dL RDW 16.3 H (11.5-15.5) % Plt Count 170 (125-369) X10(3)uL MPV 9.6 (7.4-10.4) fL Add Manual Diff Yes Neutrophils % (Manual) 75 (46-82) % Lymphocytes % (Manual) 17 (13-37) % Monocytes % (Manual) 8 (4-12) % Anisocytosis Few PT 20.3 H (8.7-11.1) INR 1.98 H (0.89-1.13) POC VBG pH (7.31-7.41) POC VBG pCO2 (41-51) mmHG POC VBG HCO3 (23-28) mmol/L POC VBG Total CO2 (24-29) mmol/L POC VBG Base Excess (-2-3) mmol/L Sodium 129 L D (135-145) mmol/L Potassium 4.2 (3.5-5.3) mmol/L Chloride 93 L D (100-110) mmol/L Carbon Dioxide 27 (21-32) mmol/L BUN 23 H (7-18) mg/dL Creatinine 1.3 H (0.55-1.02) mg/dL Est Cr Clr Drug Dosing TNP Estimated GFR (MDRD) 39 L (>60) BUN/Creatinine Ratio 17.7 (9-20) Glucose 182 H (80-116) mg/dL Calcium 8.9 (8.6-10.2) mg/dL Total Bilirubin 0.7 (0.1-1.3) mg/dL AST 38 H D (5-25) IU/L ALT 20 D (12-36) U/L Alkaline Phosphatase 86 (56-112) IU/L Troponin I (<0.017-0.056) ng/mL C-Reactive Protein (0.5-0.9) mg/dL NT-Pro-B Natriuret Pep (<=450) pg/mL Total Protein 8.6 H (6.0-8.0) g/dL Albumin 2.7 L (3.2-4.6) g/dL Globulin 5.9 g/dL Albumin/Globulin Ratio 0.5 06/17/17 06/17/17 Range/Units 20:20 20:20 WBC (4.5-12.0) X10-3/uL RBC (3.23-5.20) x10(6)uL Hgb (11.5-15.5) g/dL Hct (30.0-51.3) % MCV (80-96) fL MCH (27.7-33.6) pg MCHC (32.2-35.4) g/dL RDW (11.5-15.5) % Plt Count (125-369) X10(3)uL MPV (7.4-10.4) fL Add Manual Diff Neutrophils % (Manual) (46-82) % Lymphocytes % (Manual) (13-37) % Monocytes % (Manual) (4-12) % Anisocytosis PT (8.7-11.1) INR (0.89-1.13) POC VBG pH 7.28 L (7.31-7.41) POC VBG pCO2 53.4 H (41-51) mmHG POC VBG HCO3 25.1 (23-28) mmol/L POC VBG Total CO2 27 (24-29) mmol/L POC VBG Base Excess -2 (-2-3) mmol/L Sodium (135-145) mmol/L Potassium (3.5-5.3) mmol/L Chloride (100-110) mmol/L Carbon Dioxide (21-32) mmol/L BUN (7-18) mg/dL Creatinine (0.55-1.02) mg/dL Est Cr Clr Drug Dosing Estimated GFR (MDRD) (>60) BUN/Creatinine Ratio (9-20) Glucose (80-116) mg/dL Calcium (8.6-10.2) mg/dL Total Bilirubin (0.1-1.3) mg/dL AST (5-25) IU/L ALT (12-36) U/L Alkaline Phosphatase (56-112) IU/L Troponin I 0.022 (<0.017-0.056) ng/mL C-Reactive Protein 16.5 H* (0.5-0.9) mg/dL NT-Pro-B Natriuret Pep [id number] H* (<=450) pg/mL Total Protein (6.0-8.0) g/dL Albumin (3.2-4.6) g/dL Globulin g/dL Albumin/Globulin Ratio Meds: Medications Generic Name Dose Route Start Last Admin Trade Name Adelaida PRN Reason Stop Dose Admin Sodium Chloride 10 ml 06/17/17 20:32 06/17/17 20:48 Saline Flush FLUSH 10 ml ASDIRECTED PRN Administration Keep Vein Open Discontinued Medications Generic Name Dose Route Start Last Admin Trade Name Adelaida PRN Reason Stop Dose Admin Albuterol/Ipratropium 3 ml 06/17/17 20:33 06/17/17 20:57 Duoneb 3.0-0.5 Mg/3 Ml NEB 06/17/17 20:34 3 ml ONETIME ONE Administration Furosemide 40 mg 06/17/17 20:31 06/17/17 20:43 Lasix IVPUSH 06/17/17 20:32 40 mg NOW ONE Administration Furosemide Confirm 06/17/17 20:39 06/17/17 20:48 Lasix Administered 06/17/17 20:40 Not Given Dose 40 mg .ROUTE .STK-MED ONE Furosemide 40 mg 06/17/17 21:32 06/17/17 21:51 Lasix IVPUSH 06/17/17 21:33 40 mg NOW ONE Administration - Re-Assessments/Exams Free Text/Narrative Re-Assessment/Exam: 06/17/17 21:54 less dyspnea and wheeze after Duoneb x 1 and furosemide 40 mg IV, large void in diaper, has to void again will give a 2nd dose of furosemide begun on cefuroxime 250 mg BID x 5 doses so far, WBC not inc'd altho CRP 16.5 c/ w secondary pneumonia CxR with small b/l effusions and perihilar infiltrates echo 3w ago with EF 40-45%, severe with mean gradient 52 mm HG and area 0.81 cm2 today with pH 7.28 and pCO2 53 pt had planned to have valvuloplasty and was scheduled to meet with carton catcher tomorrow Departure - Departure Time of Disposition: 22:05 Disposition: DC/Tfer to Acute Hospital 02 Condition: Good Clinical Impression: Acute exacerbation of congestive heart failure, Severe aortic stenosis, Respiratory acidosis, Carbon dioxide retention, Elevated C-reactive protein (CRP ), Pneumonia - Discharge Information Referrals: Esteban Fink MD [Primary Care Provider] - Forms: ED Department Discharge - My Orders Last 24 Hours: My Active Orders 06/17/17 20:32 Sodium Chloride 0.9% [Saline Flush] 10 ml FLUSH ASDIRECTED PRN Saline Lock Insert [OM.PC] Routine 06/17/17 20:34 RT Aerosol Therapy [RC] ASDIRECTED Chest 1V Frontal [CR] Stat 06/17/17 20:37 UA W/MICROSCOPIC [URIN] Stat EKG 12 Lead [EK] Routine 06/17/17 20:40 EKG Documentation Completion [RC] ASDIRECTED - Assessment/Plan Last 24 Hours: My Active Orders 06/17/17 20:32 Sodium Chloride 0.9% [Saline Flush] 10 ml FLUSH ASDIRECTED PRN Saline Lock Insert [OM.PC] Routine 06/17/17 20:34 RT Aerosol Therapy [RC] ASDIRECTED Chest 1V Frontal [CR] Stat 06/17/17 20:37 UA W/MICROSCOPIC [URIN] Stat EKG 12 Lead [EK] Routine 06/17/17 20:40 EKG Documentation Completion [RC] ASDIRECTED
[2017-06-17 21:30] VITALS: BP 176/89
--- NOTE | 2017-06-19 07:44 | CR ---
INDICATION: Short of breath. CHEST: An AP portable upright view of the chest, 06/17/2017, was compared with 04/28/2017 and 08/31/2016, again revealing the heart to be enlarged. The aorta is tortuous with calcification in the arch. Overlying EKG leads are noted. Pulmonary vasculature is markedly prominent, compatible with CHF. Infiltrates are suggested, both interstitial and some alveolar, compatible with acute pulmonary edema. The possibility of superimposed aspiration pneumonia and other pneumonia would also be a consideration. At the right lung base, there are two somewhat nodular areas, which could represent abscess formation or possibly focal areas of pneumonia or edema. Followup to clearing is recommended. MTDD
== END 2017-06-17 22:43 ==
LOC: FB.ED 20:09
DX: I11.0 Hypertensive heart disease with heart failure (principal); I50.9 Heart failure, unspecified; I35.0 Nonrheumatic aortic (valve) stenosis; E87.2 Acidosis; J18.9 Pneumonia, unspecified organism; E11.9 Type 2 diabetes mellitus without complications; E03.9 Hypothyroidism, unspecified; E78.00 Pure hypercholesterolemia, unspecified; R79.82 Elevated C-reactive protein (CRP); Z86.73 Personal history of transient ischemic attack (TIA), and cerebral infarction without residual deficits; Z88.1 Allergy status to other antibiotic agents; Z79.899 Other long term (current) drug therapy; Z79.01 Long term (current) use of anticoagulants; Z79.84 Long term (current) use of oral hypoglycemic drugs; Z90.49 Acquired absence of other specified parts of digestive tract; Z87.891 Personal history of nicotine dependence
CPT/HCPCS: 36415; 71045; 80053; 81001; 82803; 83880; 84484; 85025; 85610; 86140; 87804; 93005; 94640; 96374; 96376; 99285; J1940; J7050; J7620

== ENCOUNTER 2017-10-02 13:57 | Emergency (ER) | payer MEDICARE, OTHER ==
[2017-10-02] MEDS ORDERED: Sodium Chloride 0.9% 10 ML Syringe FLUSH PRN (14:57)
[2017-10-02] MEDS ORDERED: Ondansetron 4 MG/2 ML SDV IVPUSH ONE (14:58)
[2017-10-02] MEDS ORDERED: Sodium Chloride 0.9% 1,000 ML IV SCH (15:00)
--- NOTE | 2017-10-02 15:06 | EDM.PDOC ---
ED HPI GENERAL MEDICAL PROBLEM - General Chief Complaint: Gastrointestinal Problem Stated Complaint: VOMITING Time Seen by Provider: 10/02/17 14:45 Source of Information: Reports: Patient, Family, Old Records History Limitations: Reports: No Limitations - History of Present Illness INITIAL COMMENTS - FREE TEXT/NARRATIVE: Cara is a patient at [facility] who presents with a 24 hr hx of nausea, emesis of partially digested food and beverages, and malaise. There is no known exposure, no conchita abdominal pain, burning, gas or belching, and no diarrhea. There is no fever, chills or sweats, There is no chest pain or SOB, dizziness, lt headiness, or back ache. She is post op intravascular aortic valve replacement at [facility]. - Related Data Allergies Allergy/AdvReac Type Severity Reaction Status Date / Time ciprofloxacin [From Cipro] Allergy Rash Verified 06/17/17 20:31 ciprofloxacin HCl Allergy Rash Verified 06/17/17 20:31 [From Cipro] Home Meds: Home Meds Multivitamin with Minerals [Multiple Vitamin] 2 tab PO DAILY 02/16/13 [History] Nebivolol [Bystolic] 10 mg PO BID 02/16/13 [History] Triamcinolone Acetonide [Kenalog 0.1% Crm] 15 gm .XX BID PRN 02/16/13 [History] Vit A/Vit C/Vit E/Zinc/Copper [Preservision Areds Softgel] 1 each PO PCLUNCH [History] Warfarin [Coumadin] 2.5 mg PO 1600 02/09/14 [History] Ketotifen Fumarate [Zaditor] 1 drop EYEBOTH BID PRN 02/27/16 [History] Calcium Carbonate [Calcium] 600 mg PO 02/28/16 [History] Furosemide [Lasix] 40 mg PO DAILY #15 tablet 09/01/16 [Rx] Levothyroxine [Synthroid] 88 mcg PO ACBREAKFAST 09/01/16 [History] Ferrous Gluconate 324 mg PO DAILY 04/28/17 [History] Lisinopril [Prinivil] 20 mg PO DAILY #30 tablet 05/01/17 [Rx] metFORMIN HCl [Glucophage] 500 mg PO PCLUNCH #30 05/01/17 [Rx] Past Medical History HEENT History: Reports: Cataract, Glaucoma, Impaired Vision Cardiovascular History: Reports: Blood Clots/VTE/DVT, Heart Failure, Heart Murmur, Heart Valve Replacement, High Cholesterol, Hypertension, Other (See Below) (POST OP INTRAVASCULAR AORTIC VALVE REPLACEMENT) Respiratory History: Reports: Asthma Gastrointestinal History: Reports: Diverticulosis, GERD Genitourinary History: Reports: Urinary Incontinence, Other (See Below) Other Genitourinary History: A&P REPAIR, DYSFUNCTIONAL UTERINE BLEEDING. 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: Dysfunctional Uterine Bleeding, Other OB/BYN History: II PARA II Musculoskeletal History: Reports: Osteoarthritis Neurological History: Reports: CVA Psychiatric History: Reports: None Endocrine/Metabolic History: Reports: Diabetes, Type II, Hypothyroidism, Obesity /BMI 30+ Hematologic History: Reports: Anemia Other Hematologic History: POST SURGICAL FROM DUB Immunologic History: Reports: None Oncologic (Cancer) History: Reports: None Dermatologic History: Reports: Venous Stasis Dermatitis - Infectious Disease History Infectious Disease History: Reports: Chicken Pox, Measles, Mumps - Past Surgical History Head Surgeries/Procedures: Reports: None HEENT Surgical History: Reports: Cataract Surgery GI Surgical History: Reports: Appendectomy, Cholecystectomy, Colon, Colonoscopy , Hernia, Abdominal, Hernia Repair/Other Female Surgical History: Reports: D&C, Hysterectomy, Oophorectomy, Salpingo- Oophorectomy Social & Family History - Family History Other HEENT Family History: SEE HX - Tobacco Use Smoking Status *Q: Never Smoker Second Hand Smoke Exposure: No - Caffeine Use Caffeine Use: Reports: Coffee Other Caffeine Use: 2 cups a day Caffeine Use Comment: 1 cup coffee per day. - Recreational Drug Use Recreational Drug Use: No ED ROS GENERAL - Review of Systems Review Of Systems: See Below Constitutional: Reports: Malaise, Decreased Appetite HEENT: Reports: No Symptoms Respiratory: Reports: No Symptoms Cardiovascular: Reports: Blood Pressure Problem Endocrine: Reports: No Symptoms GI/Abdominal: Reports: Decreased Appetite, Nausea, Vomiting : Reports: No Symptoms Musculoskeletal: Reports: No Symptoms Skin: Reports: No Symptoms Neurological: Reports: No Symptoms Psychiatric: Reports: No Symptoms Hematologic/Lymphatic: Reports: No Symptoms Immunologic: Reports: No Symptoms ED EXAM, GI/ABD - Physical Exam Exam: See Below Exam Limited By: No Limitations General Appearance: Alert, WD/WN, No Apparent Distress Eyes: Bilateral: Normal Appearance, EOMI Ears: Normal External Exam Nose: Normal Inspection Throat/Mouth: Normal Lips, Normal Gums, Other (xerostomia) Head: Normocephalic Neck: Normal Inspection, Supple, Non-Tender Respiratory/Chest: Lungs Clear, Normal Breath Sounds, Chest Non-Tender Cardiovascular: Regular Rate, Rhythm, No Edema, No Murmur GI/Abdominal Exam: Normal Bowel Sounds, Soft, Non-Tender, No Organomegaly, No Distention, No Mass (Female) Exam: Deferred Rectal (Female) Exam: Deferred Back Exam: Normal Inspection Extremities: Normal Inspection, Normal Range of Motion Neurological: Alert, Oriented, CN II-XII Intact, Normal Cognition, No Motor/ Sensory Deficits Psychiatric: Normal Affect, Normal Mood Skin Exam: Warm, Dry, Intact Lymphatic: No Adenopathy Course - Vital Signs Text/Narrative:: Following assessment at the [facility] ED, an IV was started in the RUE, and Cara was administered 1L of NS over 2 hours, Protonix 40 mg IV, Zofran 4 mg IV, with remission of sxs. Screening labs including ekg, CBC, CMP, Troponin I and UA were all baseline. A gastritis was suspected. Last Recorded V/S: Last Vital Signs Temp 36.3 C 10/02/17 14:05 Pulse 99 10/02/17 14:05 Resp 20 10/02/17 14:05 BP 179/82 H 10/02/17 14:05 Pulse Ox 96 10/02/17 14:05 - Orders/Labs/Meds Orders: Active Orders 24 hr Category Date Time Status EKG Documentation Completion [RC] ASDIRECTED Care 10/02/17 14:58 Active UA W/MICROSCOPIC [URIN] Stat Lab 10/02/17 16:15 Ordered Sodium Chloride 0.9% [Normal Saline] 1,000 ml Med 10/02/17 15:00 Active IV ASDIRECTED Sodium Chloride 0.9% [Saline Flush] Med 10/02/17 14:57 Active 10 ml FLUSH ASDIRECTED PRN Peripheral IV Insertion Adult [OM.PC] Routine Oth 10/02/17 14:57 Ordered EKG 12 Lead [EK] Routine Ther 10/02/17 14:57 Ordered Medication Orders Sodium Chloride (Normal Saline) 1,000 mls @ 500 mls/hr IV ASDIRECTED GALILEO Last Admin: 10/02/17 15:18 Dose: 500 mls/hr Sodium Chloride (Saline Flush) 10 ml FLUSH ASDIRECTED PRN PRN Reason: Keep Vein Open Last Admin: 10/02/17 15:10 Dose: 10 ml Labs: Laboratory Tests 10/02/17 10/02/17 10/02/17 Range/Units 15:11 15:11 15:11 WBC 6.0 (4.5-12.0) X10-3/uL RBC 3.25 (3.23-5.20) x10(6)uL Hgb 9.9 L (11.5-15.5) g/dL Hct 29.4 L (30.0-51.3) % MCV 90.5 (80-96) fL MCH 30.4 (27.7-33.6) pg MCHC 33.6 (32.2-35.4) g/dL RDW 15.3 (11.5-15.5) % Plt Count 240 (125-369) X10(3)uL MPV 7.8 (7.4-10.4) fL Neut % (Auto) 86.1 H (46-82) % Lymph % (Auto) 7.0 L (13-37) % Clark % (Auto) 5.3 (4-12) % Eos % (Auto) 0 L (1.0-5.0) % Baso % (Auto) 2 (0-2) % Neut # (Auto) 5.1 (1.6-8.3) # Lymph # (Auto) 0.4 L (0.6-5.0) # Clark # (Auto) 0.3 (0.0-1.3) # Eos # (Auto) 0.0 (0.0-0.8) # Baso # (Auto) 0.1 (0.0-0.2) # PT (8.7-11.1) INR (0.89-1.13) Sodium 134 L (135-145) mmol/L Potassium 3.7 (3.5-5.3) mmol/L Chloride 96 L (100-110) mmol/L Carbon Dioxide 26 (21-32) mmol/L BUN 37 H D (7-18) mg/dL Creatinine 1.4 H (0.55-1.02) mg/dL Est Cr Clr Drug Dosing TNP Estimated GFR (MDRD) 36 L (>60) BUN/Creatinine Ratio 26.4 H (9-20) Glucose 229 H (80-116) mg/dL Calcium 9.9 (8.6-10.2) mg/dL Total Bilirubin 0.8 (0.1-1.3) mg/dL AST 37 H (5-25) IU/L ALT 26 D (12-36) U/L Alkaline Phosphatase 85 (56-112) IU/L Troponin I 0.017 (<0.017-0.056) ng/mL Total Protein 9.9 H (6.0-8.0) g/dL Albumin 4.0 (3.2-4.6) g/dL Globulin 5.9 g/dL Albumin/Globulin Ratio 0.7 Urine Color (YELLOW) Urine Appearance (CLEAR) Urine pH (5.0-6.5) Ur Specific Golden (1.010-1.025) Urine Protein (NEGATIVE) mg/dL Urine Glucose (UA) (NEGATIVE) mg/dL Urine Ketones (NEGATIVE) mg/dL Urine Occult Blood (NEGATIVE) Urine Nitrite (NEGATIVE) Urine Bilirubin (NEGATIVE) Urine Urobilinogen (NEGATIVE) mg/dL Ur Leukocyte Esterase (NEGATIVE) Urine RBC (0) Urine WBC (0) Ur Squamous Epith Cells (NS,R,O) Urine Bacteria (NS) 10/02/17 10/02/17 Range/Units 15:11 16:15 WBC (4.5-12.0) X10-3/uL RBC (3.23-5.20) x10(6)uL Hgb (11.5-15.5) g/dL Hct (30.0-51.3) % MCV (80-96) fL MCH (27.7-33.6) pg MCHC (32.2-35.4) g/dL RDW (11.5-15.5) % Plt Count (125-369) X10(3)uL MPV (7.4-10.4) fL Neut % (Auto) (46-82) % Lymph % (Auto) (13-37) % Clark % (Auto) (4-12) % Eos % (Auto) (1.0-5.0) % Baso % (Auto) (0-2) % Neut # (Auto) (1.6-8.3) # Lymph # (Auto) (0.6-5.0) # Clark # (Auto) (0.0-1.3) # Eos # (Auto) (0.0-0.8) # Baso # (Auto) (0.0-0.2) # PT 21.8 H (8.7-11.1) INR 2.27 H (0.89-1.13) Sodium (135-145) mmol/L Potassium (3.5-5.3) mmol/L Chloride (100-110) mmol/L Carbon Dioxide (21-32) mmol/L BUN (7-18) mg/dL Creatinine (0.55-1.02) mg/dL Est Cr Clr Drug Dosing Estimated GFR (MDRD) (>60) BUN/Creatinine Ratio (9-20) Glucose (80-116) mg/dL Calcium (8.6-10.2) mg/dL Total Bilirubin (0.1-1.3) mg/dL AST (5-25) IU/L ALT (12-36) U/L Alkaline Phosphatase (56-112) IU/L Troponin I (<0.017-0.056) ng/mL Total Protein (6.0-8.0) g/dL Albumin (3.2-4.6) g/dL Globulin g/dL Albumin/Globulin Ratio Urine Color Yellow (YELLOW) Urine Appearance Clear (CLEAR) Urine pH 5.0 (5.0-6.5) Ur Specific Golden 1.015 (1.010-1.025) Urine Protein 30 H (NEGATIVE) mg/dL Urine Glucose (UA) Normal (NEGATIVE) mg/dL Urine Ketones Negative (NEGATIVE) mg/dL Urine Occult Blood Negative (NEGATIVE) Urine Nitrite Negative (NEGATIVE) Urine Bilirubin Negative (NEGATIVE) Urine Urobilinogen Normal (NEGATIVE) mg/dL Ur Leukocyte Esterase Negative (NEGATIVE) Urine RBC 0-5 (0) Urine WBC 0-5 (0) Ur Squamous Epith Cells Few H (NS,R,O) Urine Bacteria Rare H (NS) Meds: Medications Generic Name Dose Route Start Last Admin Trade Name Freq PRN Reason Stop Dose Admin Sodium Chloride 1,000 mls @ 500 mls/hr 10/02/17 15:00 10/02/17 15:18 Normal Saline IV 500 mls/hr ASDIRECTED GALILEO Administration Sodium Chloride 10 ml 10/02/17 14:57 10/02/17 15:10 Saline Flush FLUSH 10 ml ASDIRECTED PRN Administration Keep Vein Open Discontinued Medications Generic Name Dose Route Start Last Admin Trade Name Freq PRN Reason Stop Dose Admin Ondansetron HCl 4 mg 10/02/17 14:58 10/02/17 15:17 Zofran IVPUSH 10/02/17 14:59 4 mg ONETIME ONE Administration Pantoprazole Sodium 40 mg 10/02/17 15:08 10/02/17 15:15 Protonix Iv IVPUSH 10/02/17 15:09 40 mg ONETIME ONE Administration Departure - Departure Time of Disposition: 17:00 Disposition: DC/Tfer to [facility] 03 Condition: Good Clinical Impression: Gastritis Qualifiers: Gastritis type: unspecified gastritis Chronicity: unspecified Gastritis bleeding: without bleeding Qualified Code(s): K29.70 - Gastritis, unspecified, without bleeding - Discharge Information Referrals: Esteban Fink MD [Primary Care Provider] - Forms: ED Department Discharge - Problem List & Annotations (1) Gastritis SNOMED Code(s): 4835704 Code(s): K29.70 - GASTRITIS, UNSPECIFIED, WITHOUT BLEEDING Status: Acute Current Visit: Yes Annotation/Comment:: I suggested ERIN, hydration, and rest. Qualifiers: Gastritis type: unspecified gastritis Chronicity: unspecified Gastritis bleeding: without bleeding Qualified Code(s): K29.70 - Gastritis, unspecified , without bleeding - Problem List Review Problem List Initiated/Reviewed/Updated: Yes - My Orders Last 24 Hours: My Active Orders 10/02/17 14:57 Sodium Chloride 0.9% [Saline Flush] 10 ml FLUSH ASDIRECTED PRN Peripheral IV Insertion Adult [OM.PC] Routine EKG 12 Lead [EK] Routine 10/02/17 14:58 EKG Documentation Completion [RC] ASDIRECTED 10/02/17 15:00 Sodium Chloride 0.9% [Normal Saline] 1,000 ml IV ASDIRECTED 10/02/17 16:15 UA W/MICROSCOPIC [URIN] Stat - Assessment/Plan Last 24 Hours: My Active Orders 10/02/17 14:57 Sodium Chloride 0.9% [Saline Flush] 10 ml FLUSH ASDIRECTED PRN Peripheral IV Insertion Adult [OM.PC] Routine EKG 12 Lead [EK] Routine 10/02/17 14:58 EKG Documentation Completion [RC] ASDIRECTED 10/02/17 15:00 Sodium Chloride 0.9% [Normal Saline] 1,000 ml IV ASDIRECTED 10/02/17 16:15 UA W/MICROSCOPIC [URIN] Stat Plan: Follow up with PCP if needed.
[2017-10-02] MEDS ORDERED: Pantoprazole 40 MG Vial IVPUSH ONE (15:08)
[2017-10-02 17:33] VITALS: BP 165/66
== END 2017-10-02 17:15 ==
LOC: FB.ED 13:57
DX: K29.70 Gastritis, unspecified, without bleeding (principal); I11.0 Hypertensive heart disease with heart failure; I50.9 Heart failure, unspecified; E78.00 Pure hypercholesterolemia, unspecified; K21.9 Gastro-esophageal reflux disease without esophagitis; E11.9 Type 2 diabetes mellitus without complications; E03.9 Hypothyroidism, unspecified; J45.909 Unspecified asthma, uncomplicated; Z79.84 Long term (current) use of oral hypoglycemic drugs; Z79.899 Other long term (current) drug therapy; Z88.1 Allergy status to other antibiotic agents
CPT/HCPCS: 36415; 80053; 81001; 84484; 85025; 85610; 93005; 96361; 96374; 96375; 99284; C9113; J2405; J7030; J7050

== ENCOUNTER 2019-05-06 07:02 | Inpatient (IN) | payer MEDICARE, OTHER, MEDICAID ==
[2019-05-06] MEDS ORDERED: Furosemide 40 MG/4 ML VIAL IVPUSH ONE (07:14)
[2019-05-06] MEDS ORDERED: Albuterol/Ipratropium 3.0-0.5 MG/3 ML Neb Soln NEB ONE (07:21)
[2019-05-06] MEDS ORDERED: Dexamethasone 4 MG/ML SDV IVPUSH ONE (07:21)
[2019-05-06] MEDS ORDERED: Labetalol 20 MG/4 ML Syringe IVPUSH ONE (07:24)
--- NOTE | 2019-05-06 07:44 | EDM.PDOC ---
ED HPI GENERAL MEDICAL PROBLEM - General Chief Complaint: Respiratory Problem Stated Complaint: SOB Time Seen by Provider: 05/06/19 07:10 Source of Information: Reports: Patient, EMS History Limitations: Reports: No Limitations - History of Present Illness INITIAL COMMENTS - FREE TEXT/NARRATIVE: Patient with a h/o Asthma, CHF, HTN, prosthetic heart valve, and T2DM presents with SOB since last night. Was treated in clinic on 05/03/19 for Asthma exacerbation and prescribed Prednisone and Vibramycin. Denies chest pain. senior care RN noted BP 227/118, HR 127, Sa02 79% on 2L. Onset Date: 05/05/19 - Related Data Allergies Allergy/AdvReac Type Severity Reaction Status Date / Time ciprofloxacin [From Cipro] Allergy Rash Verified 10/02/17 17:27 ciprofloxacin HCl Allergy Rash Verified 10/02/17 17:27 [From Cipro] Home Meds: Home Meds Triamcinolone Acetonide [Kenalog 0.1% Crm] 1 applic TOP BID PRN 02/16/13 [ History] Warfarin [Coumadin] 2.5 mg PO SUTUWETHSA 02/09/14 [History] Levothyroxine [Synthroid] 88 mcg PO SUTUWETHSA 09/01/16 [History] Ferrous Gluconate 324 mg PO DAILY@1200 04/28/17 [History] Budesonide [Pulmicort] 0.5 mg IH BID 10/02/17 [History] Warfarin [Coumadin] 5 mg PO MOFR 10/02/17 [History] carvediloL [Carvedilol] 3.125 mg PO BIDMEALS 10/02/17 [History] Acetaminophen [Tylenol] 650 mg PO BEDTIME 05/06/19 [History] Acetaminophen [Tylenol] 650 mg PO Q4H PRN 05/06/19 [History] Alum Hydrox/Mag Hydrox/Simeth [Maalox Advanced] 10 ml PO ASDIRECTED PRN [History] Benzonatate 100 mg PO TID PRN 05/06/19 [History] Calcium Carbonate/Vitamin D3 [Calcium 600-Vit D3 400 Tablet] 1 tab PO BID [History] Carboxymethylcellulose Sodium [Artificial Tears] 1 drop EYEBOTH BID PRN [History] Docusate Sodium 100 mg PO Q48H 05/06/19 [History] Doxycycline [Vibramycin] 100 mg PO BID 05/06/19 [History] Furosemide [Lasix] 20 mg PO Q48H 05/06/19 [History] Ketotifen Fumarate [Zaditor] 1 drop EYEBOTH BID PRN 05/06/19 [History] Levothyroxine [Synthroid] 176 mcg PO MOFR 05/06/19 [History] Lisinopril [Zestril] 5 mg PO DAILY 05/06/19 [History] Magnesium Oxide [Magnesium] 400 mg PO DAILY 05/06/19 [History] Multivit-Min/FA/Lycopene/Lut [Senior Tabs] 1 tab PO DAILY 05/06/19 [History] Nystatin 1 applic TOP BID PRN 05/06/19 [History] Omeprazole 20 mg PO DAILY 05/06/19 [History] Rosuvastatin [Crestor] 5 mg PO DAILY 05/06/19 [History] Sodium Chloride [Saline Nasal [place]] 1 spray NASBOTH BID 05/06/19 [History] Sodium Chloride [Saline Nasal [place]] 1 spray NASBOTH BID PRN 05/06/19 [History] guaiFENesin [Tussin] 200 mg PO Q4H 05/06/19 [History] metFORMIN HCl [Glucophage] 500 mg PO BIDMEALS 05/06/19 [History] predniSONE [Prednisone] 40 mg PO DAILY 05/06/19 [History] Past Medical History HEENT History: Reports: Cataract, Glaucoma, Impaired Vision Cardiovascular History: Reports: Blood Clots/VTE/DVT, Heart Failure, Heart Murmur, Heart Valve Replacement, High Cholesterol, Hypertension, Other (See Below) (POST OP INTRAVASCULAR AORTIC VALVE REPLACEMENT) Respiratory History: Reports: Asthma Gastrointestinal History: Reports: Diverticulosis, GERD Genitourinary History: Reports: Urinary Incontinence, Other (See Below) Other Genitourinary History: A&P REPAIR, DYSFUNCTIONAL UTERINE BLEEDING. COMMUNICATIONS ASSISTANT History: Reports: Dysfunctional Uterine Bleeding, Other COMMUNICATIONS ASSISTANT History: II PARA II Musculoskeletal History: Reports: Osteoarthritis Neurological History: Reports: CVA Psychiatric History: Reports: None Endocrine/Metabolic History: Reports: Diabetes, Type II, Hypothyroidism, Obesity /BMI 30+ Hematologic History: Reports: Anemia Other Hematologic History: POST SURGICAL FROM [facility] Immunologic History: Reports: None Oncologic (Cancer) History: Reports: None Dermatologic History: Reports: Venous Stasis Dermatitis - Infectious Disease History Infectious Disease History: Reports: Chicken Pox, Measles, Mumps - Past Surgical History Head Surgeries/Procedures: Reports: None HEENT Surgical History: Reports: Cataract Surgery GI Surgical History: Reports: Appendectomy, Cholecystectomy, Colon, Colonoscopy , Hernia, Abdominal, Hernia Repair/Other Female Surgical History: Reports: D&C, Hysterectomy, Oophorectomy, Salpingo- Oophorectomy Social & Family History - Family History Other HEENT Family History: SEE HX - Caffeine Use Caffeine Use: Reports: Coffee Other Caffeine Use: 2 cups a day Caffeine Use Comment: 1 cup coffee per day. ED ROS GENERAL - Review of Systems Review Of Systems: Comprehensive ROS is negative, except as noted in HPI. ED EXAM, GENERAL - Physical Exam Exam: See Below Exam Limited By: Respiratory Distress General Appearance: Alert, Moderate Distress Nose: Normal Inspection Throat/Mouth: Normal Oropharynx, No Airway Compromise Head: Atraumatic, Normocephalic Neck: Full Range of Motion Respiratory/Chest: Respiratory Distress, Decreased Breath Sounds, Rhonchi, Wheezing Cardiovascular: Tachycardia GI/Abdominal: Non-Tender, No Distention Extremities: No Pedal Edema Neurological: Alert, Normal Cognition Skin Exam: Warm, Dry, Intact EKG INTERPRETATION EKG Date: 05/06/19 Time: 01:21 Rhythm: Other (tachycardia) Rate (Beats/Min): 121 QRS: LBBB Comparison: Other: (LBBB noted on 10/02/17) Course - Vital Signs Last Recorded V/S: Last Vital Signs Temp 36.1 C 05/06/19 07:09 Pulse 124 H 05/06/19 07:09 Resp 29 H 05/06/19 07:09 BP 208/136 H 05/06/19 07:09 Pulse Ox 100 05/06/19 09:00 - Orders/Labs/Meds Orders: Active Orders 24 hr Category Date Time Status Admission Status [Patient Status] [ADT] Routine ADT 05/06/19 09:25 Active BIPAP Adult [RT BiPAP/CPAP] [RC] ASDIRECTED Care 05/06/19 07:20 Active EKG Documentation Completion [RC] ASDIRECTED Care 05/06/19 07:11 Active Insert Donald Catheter [Insert Urinary Catheter] [OM.PC] Care 05/06/19 07:15 Ordered Q24H RT Aerosol Therapy [RC] ASDIRECTED Care 05/06/19 07:21 Active Urinary Catheter Assessment [RC] QSHIFT Care 05/06/19 07:14 Active Ang Chest [CT] Stat Exams 05/06/19 08:18 Taken CXR [Chest 1V Frontal] [CR] Stat Exams 05/06/19 07:10 Taken CULTURE BLOOD [BC] Urgent Lab 05/06/19 07:30 Received CULTURE BLOOD [BC] Urgent Lab 05/06/19 07:40 Received Piperacillin/Tazobactam [Zosyn] 3.375 gm Med 05/06/19 09:17 Active Sodium Chloride 0.9% [Normal Saline] 50 ml IV .ONCE Sodium Chloride 0.9% [Saline Flush] Med 05/06/19 07:21 Active 10 ml FLUSH ASDIRECTED PRN Blood Culture x2 Reflex Set [OM.PC] Urgent Oth 05/06/19 07:13 Ordered Saline Lock Insert [OM.PC] Routine Oth 05/06/19 07:21 Ordered EKG 12 Lead [EK] Stat Ther 05/06/19 07:10 Ordered Medication Orders Piperacillin Sod/Tazobactam (Sod 3.375 gm/ Sodium Chloride) 50 mls @ 100 mls/ hr IV .ONCE ONE Stop: 05/06/19 09:46 Last Admin: 05/06/19 09:25 Dose: 100 mls/hr Sodium Chloride (Saline Flush) 10 ml FLUSH ASDIRECTED PRN PRN Reason: Keep Vein Open Last Admin: 05/06/19 07:54 Dose: 10 ml Labs: Laboratory Tests 05/06/19 05/06/19 05/06/19 Range/Units 07:30 07:30 07:30 WBC 17.0 H (4.5-12.0) X10-3/uL RBC 3.43 (3.23-5.20) x10(6)uL Hgb 10.2 L (11.5-15.5) g/dL Hct 30.6 (30.0-51.3) % MCV 89.3 (80-96) fL MCH 29.8 (27.7-33.6) pg MCHC 33.4 (32.2-35.4) g/dL RDW 14.1 (11.5-15.5) % Plt Count 315 (125-369) X10(3)uL MPV 8.5 (7.4-10.4) fL Add Manual Diff Yes Neutrophils % (Manual) 79 (46-82) % Band Neutrophils % 6 (0-6) % Lymphocytes % (Manual) 9 L (13-37) % Monocytes % (Manual) 6 (4-12) % PT (8.7-11.1) INR (0.89-1.13) APTT (24.4-33.2) SECONDS D-Dimer, Quantitative (0.0-0.59) mg/LFEU POC VBG pH (7.31-7.41) POC VBG pCO2 (41-51) mmHG POC VBG HCO3 (23-28) mmol/L POC VBG Total CO2 (24-29) mmol/L POC VBG Base Excess (-2-3) mmol/L Sodium 133 L (135-145) mmol/L Potassium 4.2 (3.5-5.3) mmol/L Chloride 97 L (100-110) mmol/L Carbon Dioxide 27 (21-32) mmol/L BUN 28 H (7-18) mg/dL Creatinine 1.3 H (0.55-1.02) mg/dL Est Cr Clr Drug Dosing TNP Estimated GFR (MDRD) 39 L (>60) BUN/Creatinine Ratio 21.5 H (9-20) Glucose 211 H (80-116) mg/dL Lactic Acid 1.2 (0.4-2.0) mmol/L Calcium 9.3 (8.6-10.2) mg/dL Total Bilirubin 0.4 (0.1-1.3) mg/dL AST 30 H D (5-25) IU/L ALT 15 D (12-36) U/L Alkaline Phosphatase 79 (56-112) IU/L Troponin I (<0.017-0.056) ng/mL NT-Pro-B Natriuret Pep (<=450) pg/mL Total Protein 8.2 H (6.0-8.0) g/dL Albumin 3.9 (3.2-4.6) g/dL Globulin 4.3 g/dL Albumin/Globulin Ratio 0.9 Urine Color (YELLOW) Urine Appearance (CLEAR) Urine pH (5.0-6.5) Ur Specific Panther (1.010-1.025) Urine Protein (NEGATIVE) mg/dL Urine Glucose (UA) (NORMAL) mg/dL Urine Ketones (NEGATIVE) mg/dL Urine Occult Blood (NEGATIVE) Urine Nitrite (NEGATIVE) Urine Bilirubin (NEGATIVE) Urine Urobilinogen (NEGATIVE) mg/dL Ur Leukocyte Esterase (NEGATIVE) Urine RBC (0-5) Urine WBC (0-5) Ur Squamous Epith Cells (NS,R,O) Amorphous Sediment Urine Bacteria (NS) 05/06/19 05/06/19 05/06/19 Range/Units 07:30 07:30 07:40 WBC (4.5-12.0) X10-3/uL RBC (3.23-5.20) x10(6)uL Hgb (11.5-15.5) g/dL Hct (30.0-51.3) % MCV (80-96) fL MCH (27.7-33.6) pg MCHC (32.2-35.4) g/dL RDW (11.5-15.5) % Plt Count (125-369) X10(3)uL MPV (7.4-10.4) fL Add Manual Diff Neutrophils % (Manual) (46-82) % Band Neutrophils % (0-6) % Lymphocytes % (Manual) (13-37) % Monocytes % (Manual) (4-12) % PT 31.2 H (8.7-11.1) INR 3.26 H (0.89-1.13) APTT 31.0 (24.4-33.2) SECONDS D-Dimer, Quantitative 1.70 H (0.0-0.59) mg/LFEU POC VBG pH (7.31-7.41) POC VBG pCO2 (41-51) mmHG POC VBG HCO3 (23-28) mmol/L POC VBG Total CO2 (24-29) mmol/L POC VBG Base Excess (-2-3) mmol/L Sodium (135-145) mmol/L Potassium (3.5-5.3) mmol/L Chloride (100-110) mmol/L Carbon Dioxide (21-32) mmol/L BUN (7-18) mg/dL Creatinine (0.55-1.02) mg/dL Est Cr Clr Drug Dosing Estimated GFR (MDRD) (>60) BUN/Creatinine Ratio (9-20) Glucose (80-116) mg/dL Lactic Acid (0.4-2.0) mmol/L Calcium (8.6-10.2) mg/dL Total Bilirubin (0.1-1.3) mg/dL AST (5-25) IU/L ALT (12-36) U/L Alkaline Phosphatase (56-112) IU/L Troponin I 0.046 (<0.017-0.056) ng/mL NT-Pro-B Natriuret Pep 53006 H* (<=450) pg/mL Total Protein (6.0-8.0) g/dL Albumin (3.2-4.6) g/dL Globulin g/dL Albumin/Globulin Ratio Urine Color Yellow (YELLOW) Urine Appearance Slightly cloudy (CLEAR) Urine pH 5.0 (5.0-6.5) Ur Specific Panther 1.020 (1.010-1.025) Urine Protein 500 H (NEGATIVE) mg/dL Urine Glucose (UA) Normal (NORMAL) mg/dL Urine Ketones Negative (NEGATIVE) mg/dL Urine Occult Blood Moderate H (NEGATIVE) Urine Nitrite Negative (NEGATIVE) Urine Bilirubin Negative (NEGATIVE) Urine Urobilinogen Normal (NEGATIVE) mg/dL Ur Leukocyte Esterase Negative (NEGATIVE) Urine RBC 5-10 H (0-5) Urine WBC 0-5 (0-5) Ur Squamous Epith Cells Occasional (NS,R,O) Amorphous Sediment Few Urine Bacteria Moderate H (NS) 05/06/19 Range/Units 07:57 WBC (4.5-12.0) X10-3/uL RBC (3.23-5.20) x10(6)uL Hgb (11.5-15.5) g/dL Hct (30.0-51.3) % MCV (80-96) fL MCH (27.7-33.6) pg MCHC (32.2-35.4) g/dL RDW (11.5-15.5) % Plt Count (125-369) X10(3)uL MPV (7.4-10.4) fL Add Manual Diff Neutrophils % (Manual) (46-82) % Band Neutrophils % (0-6) % Lymphocytes % (Manual) (13-37) % Monocytes % (Manual) (4-12) % PT (8.7-11.1) INR (0.89-1.13) APTT (24.4-33.2) SECONDS D-Dimer, Quantitative (0.0-0.59) mg/LFEU POC VBG pH 7.29 L (7.31-7.41) POC VBG pCO2 57.1 H (41-51) mmHG POC VBG HCO3 27.4 (23-28) mmol/L POC VBG Total CO2 29 (24-29) mmol/L POC VBG Base Excess 1 (-2-3) mmol/L Sodium (135-145) mmol/L Potassium (3.5-5.3) mmol/L Chloride (100-110) mmol/L Carbon Dioxide (21-32) mmol/L BUN (7-18) mg/dL Creatinine (0.55-1.02) mg/dL Est Cr Clr Drug Dosing Estimated GFR (MDRD) (>60) BUN/Creatinine Ratio (9-20) Glucose (80-116) mg/dL Lactic Acid (0.4-2.0) mmol/L Calcium (8.6-10.2) mg/dL Total Bilirubin (0.1-1.3) mg/dL AST (5-25) IU/L ALT (12-36) U/L Alkaline Phosphatase (56-112) IU/L Troponin I (<0.017-0.056) ng/mL NT-Pro-B Natriuret Pep (<=450) pg/mL Total Protein (6.0-8.0) g/dL Albumin (3.2-4.6) g/dL Globulin g/dL Albumin/Globulin Ratio Urine Color (YELLOW) Urine Appearance (CLEAR) Urine pH (5.0-6.5) Ur Specific Panther (1.010-1.025) Urine Protein (NEGATIVE) mg/dL Urine Glucose (UA) (NORMAL) mg/dL Urine Ketones (NEGATIVE) mg/dL Urine Occult Blood (NEGATIVE) Urine Nitrite (NEGATIVE) Urine Bilirubin (NEGATIVE) Urine Urobilinogen (NEGATIVE) mg/dL Ur Leukocyte Esterase (NEGATIVE) Urine RBC (0-5) Urine WBC (0-5) Ur Squamous Epith Cells (NS,R,O) Amorphous Sediment Urine Bacteria (NS) Meds: Medications Generic Name Dose Route Start Last Admin Trade Name Freq PRN Reason Stop Dose Admin Piperacillin Sod/Tazobactam 50 mls @ 100 mls/hr 05/06/19 09:17 05/06/19 09:25 Sod 3.375 gm/ Sodium Chloride IV 05/06/19 09:46 100 mls/hr .ONCE ONE Administration Sodium Chloride 10 ml 05/06/19 07:21 05/06/19 07:54 Saline Flush FLUSH 10 ml ASDIRECTED PRN Administration Keep Vein Open Discontinued Medications Generic Name Dose Route Start Last Admin Trade Name Adelaida PRN Reason Stop Dose Admin Albuterol/Ipratropium 3 ml 05/06/19 07:21 05/06/19 07:42 Duoneb 3.0-0.5 Mg/3 Ml NEB 05/06/19 07:22 3 ml ONETIME ONE Administration Dexamethasone 10 mg 05/06/19 07:21 05/06/19 07:43 Dexamethasone IVPUSH 05/06/19 07:22 10 mg ONETIME ONE Administration Furosemide 40 mg 05/06/19 07:14 05/06/19 07:53 Lasix IVPUSH 05/06/19 07:15 40 mg NOW ONE Administration Iopamidol 100 ml 05/06/19 08:27 05/06/19 08:33 Isovue-370 (76%) IV 05/06/19 08:28 66 ml . DIRECTED ONE Administration Labetalol HCl 10 mg 05/06/19 08:00 05/06/19 08:00 Normodyne IVPUSH 05/06/19 08:01 10 mg ONETIME ONE Administration Protocol - Radiology Interpretation Free Text/Narrative:: CXR: Vascular congestion. Focal airspace opacity at the right base could represent asymmetric development of alveolar edema, atelectasis, aspiration or pneumonia. CTA Chest: Mild background pattern of vascular congestion with early interstitial edema. Bibasilar airspace disease, right greater than left likely pneumonia. No pulmonary emboli. - Re-Assessments/Exams Free Text/Narrative Re-Assessment/Exam: 05/06/19 09:31 Placed on Bipap 10/5 x 1 hour, given Lasix 40mg IV, Decadron 10mg IV, and Duoneb. Patient significantly improved, no longer short of breath. Sa02 97% on 2L 02 NC. BP 130/66, HR 78 (after Labetolol 10mg IV). 05/06/19 09:39 Dr. Glez will admit to [facility]. Departure - Departure Time of Disposition: 09:39 Disposition: Admitted As Inpatient 64 Condition: Fair Clinical Impression: Respiratory distress Exacerbation of asthma Qualifiers: Asthma severity: moderate Asthma persistence: persistent Qualified Code(s): J45.41 - Moderate persistent asthma with (acute) exacerbation CHF exacerbation Qualifiers: Heart failure type: unspecified Qualified Code(s): I50.9 - Heart failure, unspecified Pneumonia Qualifiers: Pneumonia type: due to unspecified organism Laterality: bilateral Lung location : lower lobe of lung Qualified Code(s): J18.9 - Pneumonia, unspecified organism - Discharge Information *PRESCRIPTION DRUG MONITORING PROGRAM REVIEWED*: No *COPY OF PRESCRIPTION DRUG MONITORING REPORT IN PATIENT MAG: Not Applicable Referrals: Esteban Fink MD [Primary Care Provider] - Forms: ED Department Discharge Sepsis Event Note - Evaluation Sepsis Screening Result: No Definite Risk - Focused Exam Vital Signs: Vital Signs Temp Pulse Resp BP Pulse Ox Pulse Ox Pulse Ox 05/06/19 09:00 100 05/06/19 08:24 05/06/19 07:25 100 05/06/19 07:09 36.1 C 124 H 29 H 208/136 H 93 L Pulse Ox 05/06/19 09:00 05/06/19 08:24 100 05/06/19 07:25 05/06/19 07:09 Date Exam was Performed: 05/06/19 Time Exam was Performed: 09:31 - My Orders Last 24 Hours: My Active Orders 05/06/19 07:10 CXR [Chest 1V Frontal] [CR] Stat EKG 12 Lead [EK] Stat 05/06/19 07:11 EKG Documentation Completion [RC] ASDIRECTED 05/06/19 07:13 Blood Culture x2 Reflex Set [OM.PC] Urgent 05/06/19 07:14 Urinary Catheter Assessment [RC] QSHIFT 05/06/19 07:15 Insert Donald Catheter [Insert Urinary Catheter] [OM.PC] Q24H 05/06/19 07:20 BIPAP Adult [RT BiPAP/CPAP] [RC] ASDIRECTED 05/06/19 07:21 RT Aerosol Therapy [RC] ASDIRECTED Sodium Chloride 0.9% [Saline Flush] 10 ml FLUSH ASDIRECTED PRN Saline Lock Insert [OM.PC] Routine 05/06/19 07:30 CULTURE BLOOD [BC] Urgent 05/06/19 07:40 CULTURE BLOOD [BC] Urgent 05/06/19 08:18 Ang Chest [CT] Stat 05/06/19 09:17 Piperacillin/Tazobactam [Zosyn] 3.375 gm Sodium Chloride 0.9% [Normal Saline] 50 ml IV .ONCE 05/06/19 09:25 Admission Status [Patient Status] [ADT] Routine - Assessment/Plan Last 24 Hours: My Active Orders 05/06/19 07:10 CXR [Chest 1V Frontal] [CR] Stat EKG 12 Lead [EK] Stat 05/06/19 07:11 EKG Documentation Completion [RC] ASDIRECTED 05/06/19 07:13 Blood Culture x2 Reflex Set [OM.PC] Urgent 05/06/19 07:14 Urinary Catheter Assessment [RC] QSHIFT 05/06/19 07:15 Insert Donald Catheter [Insert Urinary Catheter] [OM.PC] Q24H 05/06/19 07:20 BIPAP Adult [RT BiPAP/CPAP] [RC] ASDIRECTED 05/06/19 07:21 RT Aerosol Therapy [RC] ASDIRECTED Sodium Chloride 0.9% [Saline Flush] 10 ml FLUSH ASDIRECTED PRN Saline Lock Insert [OM.PC] Routine 05/06/19 07:30 CULTURE BLOOD [BC] Urgent 05/06/19 07:40 CULTURE BLOOD [BC] Urgent 05/06/19 08:18 Ang Chest [CT] Stat 05/06/19 09:17 Piperacillin/Tazobactam [Zosyn] 3.375 gm Sodium Chloride 0.9% [Normal Saline] 50 ml IV .ONCE 05/06/19 09:25 Admission Status [Patient Status] [ADT] Routine
[2019-05-06] MEDS: Sodium Chloride 0.9% 10 ML Syringe FLUSH PRN ×5 (07:54→23:30)
[2019-05-06] MEDS ORDERED: Labetalol 100 MG/20 ML MDV IVPUSH ONE (08:00)
[2019-05-06] MEDS ORDERED: Iopamidol 755 Mg/ML 100 ML Bottle IV ONE (08:27)
[2019-05-06] MEDS ORDERED: Piperacillin/Tazobactam 3.375 GM in Sodium Chloride 0.9% 50 ML IV ONE (09:17)
[2019-05-06] MEDS ORDERED: Albuterol 0.083% 2.5 MG/3 ML Neb Soln NEB PRN (09:48)
[2019-05-06] MEDS ORDERED: Benzonatate 100 MG Cap PO PRN (09:54)
[2019-05-06] MEDS ORDERED: Acetaminophen 325 MG Tab PO PRN (09:54)
[2019-05-06] MEDS ORDERED: methylPREDNISolone Sodium Succinate 125 MG/2 ML SDV IVPUSH SCH (10:00)
[2019-05-06] MEDS ORDERED: Levothyroxine 88 MCG Tab PO SCH (10:00)
[2019-05-06] MEDS ORDERED: Warfarin Sliding Scale PO SCH (10:45)
[2019-05-06] MEDS: Rosuvastatin 10 MG Tab PO SCH (13:07)
[2019-05-06] MEDS: Docusate Sodium 100 MG Cap PO SCH (13:07)
[2019-05-06] MEDS: Carvedilol 3.125 MG Tab PO SCH ×2 (13:07→17:30)
[2019-05-06] MEDS: Lisinopril 5 MG Tab PO SCH (13:07)
[2019-05-06] MEDS: Budesonide 0.5 MG/2 ML Neb Susp NEB SCH ×2 (13:08→20:15)
[2019-05-06] MEDS: Pantoprazole 40 MG Tab.CR PO SCH (13:08)
[2019-05-06] MEDS: Albuterol/Ipratropium 3.0-0.5 MG/3 ML Neb Soln INH SCH ×3 (13:08→20:18)
[2019-05-06] MEDS: Magnesium Oxide 400 MG Tab PO SCH (13:08)
[2019-05-06] MEDS: methylPREDNISolone Sodium Succinate 125 MG/2 ML SDV IVPUSH SCH ×3 (13:09→23:30)
--- NOTE | 2019-05-06 14:44 | PCM.HP.2 ---
H&P History of Present Illness - General Date of Service: 05/06/19 Admit Problem/Dx: Admission Diagnosis/Problem Admission Diagnosis/Problem Pneumonia Source of Information: Patient, EMS Notes Reviewed History Limitations: Reports: No Limitations - History of Present Illness Initial Comments - Free Text/Narative: This is a very pleasant 83-year-old female patient states she got acutely short of breath this morning and was brought over here by ambulance. She said last weekend which is about a week ago she started getting a cold with nasal congestion and a productive cough. The clinic call over doxycycline and prednisone. Over the week she seemed to get worse and he last night started having shortness of breath and got worse today and was seen in the ER. In the ER they put her on BiPAP for a while gave her some Lasix and she got better. They did a CT scan that showed pulmonary vascular congestion and pneumonia. She did have a flu shot this year. She denies fevers, chills, runny nose or congestion at this time per she has no ear pain, sore throat. She does have wheezing and little shortness of breath. She is much better and oxygen. She says she's a 6 out of 10 from she normally feels. - Related Data Allergies/Adverse Reactions: Allergies Allergy/AdvReac Type Severity Reaction Status Date / Time ciprofloxacin [From Cipro] Allergy Rash Verified 10/02/17 17:27 ciprofloxacin HCl Allergy Rash Verified 10/02/17 17:27 [From Cipro] Home Medications: Home Meds Triamcinolone Acetonide [Kenalog 0.1% Crm] 1 applic TOP BID PRN 02/16/13 [ History] Warfarin [Coumadin] 2.5 mg PO SUTUWETHSA 02/09/14 [History] Levothyroxine [Synthroid] 88 mcg PO SUTUWETHSA 09/01/16 [History] Ferrous Gluconate 324 mg PO DAILY@1200 04/28/17 [History] Budesonide [Pulmicort] 0.5 mg IH BID 10/02/17 [History] Warfarin [Coumadin] 5 mg PO MOFR 10/02/17 [History] carvediloL [Carvedilol] 3.125 mg PO BIDMEALS 10/02/17 [History] Acetaminophen [Tylenol] 650 mg PO BEDTIME 05/06/19 [History] Acetaminophen [Tylenol] 650 mg PO Q4H PRN 05/06/19 [History] Alum Hydrox/Mag Hydrox/Simeth [Maalox Advanced] 10 ml PO ASDIRECTED PRN [History] Benzonatate 100 mg PO TID PRN 05/06/19 [History] Calcium Carbonate/Vitamin D3 [Calcium 600-Vit D3 400 Tablet] 1 tab PO BID [History] Carboxymethylcellulose Sodium [Artificial Tears] 1 drop EYEBOTH BID PRN [History] Docusate Sodium 100 mg PO Q48H 05/06/19 [History] Doxycycline [Vibramycin] 100 mg PO BID 05/06/19 [History] Furosemide [Lasix] 20 mg PO Q48H 05/06/19 [History] Ketotifen Fumarate [Zaditor] 1 drop EYEBOTH BID PRN 05/06/19 [History] Levothyroxine [Synthroid] 176 mcg PO MOFR 05/06/19 [History] Lisinopril [Zestril] 5 mg PO DAILY 05/06/19 [History] Magnesium Oxide [Magnesium] 400 mg PO DAILY 05/06/19 [History] Multivit-Min/FA/Lycopene/Lut [Senior Tabs] 1 tab PO DAILY 05/06/19 [History] Nystatin 1 applic TOP BID PRN 05/06/19 [History] Omeprazole 20 mg PO DAILY 05/06/19 [History] Rosuvastatin [Crestor] 5 mg PO DAILY 05/06/19 [History] Sodium Chloride [Saline Nasal [place]] 1 spray NASBOTH BID 05/06/19 [History] Sodium Chloride [Saline Nasal [place]] 1 spray NASBOTH BID PRN 05/06/19 [History] guaiFENesin [Tussin] 200 mg PO Q4H 05/06/19 [History] metFORMIN HCl [Glucophage] 500 mg PO BIDMEALS 05/06/19 [History] predniSONE [Prednisone] 40 mg PO DAILY 05/06/19 [History] Past Medical History HEENT History: Reports: Cataract, Glaucoma, Impaired Vision Cardiovascular History: Reports: Blood Clots/VTE/DVT, Heart Failure, Heart Murmur, Heart Valve Replacement, High Cholesterol, Hypertension, Other (See Below) (POST OP INTRAVASCULAR AORTIC VALVE REPLACEMENT) Respiratory History: Reports: Asthma Gastrointestinal History: Reports: Diverticulosis, GERD Genitourinary History: Reports: Urinary Incontinence, Other (See Below) Other Genitourinary History: A&P REPAIR, DYSFUNCTIONAL UTERINE BLEEDING. 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: Dysfunctional Uterine Bleeding, Other OB/BYN History: II PARA II Musculoskeletal History: Reports: Osteoarthritis Neurological History: Reports: CVA Psychiatric History: Reports: None Endocrine/Metabolic History: Reports: Diabetes, Type II, Hypothyroidism, Obesity /BMI 30+ Hematologic History: Reports: Anemia Other Hematologic History: POST SURGICAL FROM DUB Immunologic History: Reports: None Oncologic (Cancer) History: Reports: None Dermatologic History: Reports: Venous Stasis Dermatitis - Infectious Disease History Infectious Disease History: Reports: Chicken Pox, Measles, Mumps - Past Surgical History Head Surgeries/Procedures: Reports: None HEENT Surgical History: Reports: Cataract Surgery GI Surgical History: Reports: Appendectomy, Cholecystectomy, Colon, Colonoscopy , Hernia, Abdominal, Hernia Repair/Other Female Surgical History: Reports: D&C, Hysterectomy, Oophorectomy, Salpingo- Oophorectomy Social & Family History - Family History Other HEENT Family History: SEE HX - Tobacco Use Smoking Status *Q: Never Smoker - Caffeine Use Caffeine Use: Reports: Coffee Other Caffeine Use: 2 cups a day Caffeine Use Comment: 1 cup coffee per day. - Recreational Drug Use Recreational Drug Use: No H&P Review of Systems - Review of Systems: Review Of Systems: See Below General: Reports: No Symptoms HEENT: Reports: No Symptoms Pulmonary: Reports: Shortness of Breath, Wheezing, Cough, Sputum. Denies: Hemoptysis Cardiovascular: Reports: No Symptoms Gastrointestinal: Reports: No Symptoms Genitourinary: Reports: No Symptoms Musculoskeletal: Reports: No Symptoms Skin: Reports: No Symptoms Psychiatric: Reports: No Symptoms Neurological: Reports: No Symptoms Hematologic/Lymphatic: Reports: No Symptoms Immunologic: Reports: No Symptoms Exam - Exam Exam: See Below - Vital Signs Vital Signs: Last Vital Signs Temp 96.9 F 05/06/19 07:09 Pulse 80 05/06/19 13:20 Resp 29 H 05/06/19 07:09 BP 160/91 H 05/06/19 13:07 Pulse Ox 99 05/06/19 13:20 Weight: 168 lb 8 oz - Exam General: Alert, Oriented, Cooperative HEENT: Mucosa Moist & [place], Posterior Pharynx Clear, TMs Clear Neck: Supple, Trachea Midline Lungs: Normal Respiratory Effort, Wheezing (Expiratory throughout bilateral) Cardiovascular: Regular Rate, Regular Rhythm. No: Systolic Murmur Back Exam: Normal Inspection, Full Range of Motion Extremities: Normal Inspection, Non-Tender, No Pedal Edema Skin: Warm, Dry, Intact Neuro Extensive - Mental Status: Alert, Oriented x3, Normal Mood/Affect, Normal Cognition Psychiatric: Alert, Normal Affect, Normal Mood - Patient Data Lab Results Last 24 hrs: Laboratory Results - last 24 hr 05/06/19 05/06/19 05/06/19 Range/Units 07:30 07:30 07:30 WBC 17.0 H (4.5-12.0) X10-3/uL RBC 3.43 (3.23-5.20) x10(6)uL Hgb 10.2 L (11.5-15.5) g/dL Hct 30.6 (30.0-51.3) % MCV 89.3 (80-96) fL MCH 29.8 (27.7-33.6) pg MCHC 33.4 (32.2-35.4) g/dL RDW 14.1 (11.5-15.5) % Plt Count 315 (125-369) X10(3)uL MPV 8.5 (7.4-10.4) fL Add Manual Diff Yes Neutrophils % (Manual) 79 (46-82) % Band Neutrophils % 6 (0-6) % Lymphocytes % (Manual) 9 L (13-37) % Monocytes % (Manual) 6 (4-12) % PT (8.7-11.1) INR (0.89-1.13) APTT (24.4-33.2) SECONDS D-Dimer, Quantitative (0.0-0.59) mg/LFEU POC VBG pH (7.31-7.41) POC VBG pCO2 (41-51) mmHG POC VBG HCO3 (23-28) mmol/L POC VBG Total CO2 (24-29) mmol/L POC VBG Base Excess (-2-3) mmol/L Sodium 133 L (135-145) mmol/L Potassium 4.2 (3.5-5.3) mmol/L Chloride 97 L (100-110) mmol/L Carbon Dioxide 27 (21-32) mmol/L BUN 28 H (7-18) mg/dL Creatinine 1.3 H (0.55-1.02) mg/dL Est Cr Clr Drug Dosing TNP Estimated GFR (MDRD) 39 L (>60) BUN/Creatinine Ratio 21.5 H (9-20) Glucose 211 H (80-116) mg/dL Lactic Acid 1.2 (0.4-2.0) mmol/L Calcium 9.3 (8.6-10.2) mg/dL Total Bilirubin 0.4 (0.1-1.3) mg/dL AST 30 H D (5-25) IU/L ALT 15 D (12-36) U/L Alkaline Phosphatase 79 (56-112) IU/L Troponin I (<0.017-0.056) ng/mL NT-Pro-B Natriuret Pep (<=450) pg/mL Total Protein 8.2 H (6.0-8.0) g/dL Albumin 3.9 (3.2-4.6) g/dL Globulin 4.3 g/dL Albumin/Globulin Ratio 0.9 Urine Color (YELLOW) Urine Appearance (CLEAR) Urine pH (5.0-6.5) Ur Specific [place] (1.010-1.025) Urine Protein (NEGATIVE) mg/dL Urine Glucose (UA) (NORMAL) mg/dL Urine Ketones (NEGATIVE) mg/dL Urine Occult Blood (NEGATIVE) Urine Nitrite (NEGATIVE) Urine Bilirubin (NEGATIVE) Urine Urobilinogen (NEGATIVE) mg/dL Ur Leukocyte Esterase (NEGATIVE) Urine RBC (0-5) Urine WBC (0-5) Ur Squamous Epith Cells (NS,R,O) Amorphous Sediment Urine Bacteria (NS) 05/06/19 05/06/19 05/06/19 Range/Units 07:30 07:30 07:40 WBC (4.5-12.0) X10-3/uL RBC (3.23-5.20) x10(6)uL Hgb (11.5-15.5) g/dL Hct (30.0-51.3) % MCV (80-96) fL MCH (27.7-33.6) pg MCHC (32.2-35.4) g/dL RDW (11.5-15.5) % Plt Count (125-369) X10(3)uL MPV (7.4-10.4) fL Add Manual Diff Neutrophils % (Manual) (46-82) % Band Neutrophils % (0-6) % Lymphocytes % (Manual) (13-37) % Monocytes % (Manual) (4-12) % PT 31.2 H (8.7-11.1) INR 3.26 H (0.89-1.13) APTT 31.0 (24.4-33.2) SECONDS D-Dimer, Quantitative 1.70 H (0.0-0.59) mg/LFEU POC VBG pH (7.31-7.41) POC VBG pCO2 (41-51) mmHG POC VBG HCO3 (23-28) mmol/L POC VBG Total CO2 (24-29) mmol/L POC VBG Base Excess (-2-3) mmol/L Sodium (135-145) mmol/L Potassium (3.5-5.3) mmol/L Chloride (100-110) mmol/L Carbon Dioxide (21-32) mmol/L BUN (7-18) mg/dL Creatinine (0.55-1.02) mg/dL Est Cr Clr Drug Dosing Estimated GFR (MDRD) (>60) BUN/Creatinine Ratio (9-20) Glucose (80-116) mg/dL Lactic Acid (0.4-2.0) mmol/L Calcium (8.6-10.2) mg/dL Total Bilirubin (0.1-1.3) mg/dL AST (5-25) IU/L ALT (12-36) U/L Alkaline Phosphatase (56-112) IU/L Troponin I 0.046 (<0.017-0.056) ng/mL NT-Pro-B Natriuret Pep 68802 H* (<=450) pg/mL Total Protein (6.0-8.0) g/dL Albumin (3.2-4.6) g/dL Globulin g/dL Albumin/Globulin Ratio Urine Color Yellow (YELLOW) Urine Appearance Slightly cloudy (CLEAR) Urine pH 5.0 (5.0-6.5) Ur Specific [place] 1.020 (1.010-1.025) Urine Protein 500 H (NEGATIVE) mg/dL Urine Glucose (UA) Normal (NORMAL) mg/dL Urine Ketones Negative (NEGATIVE) mg/dL Urine Occult Blood Moderate H (NEGATIVE) Urine Nitrite Negative (NEGATIVE) Urine Bilirubin Negative (NEGATIVE) Urine Urobilinogen Normal (NEGATIVE) mg/dL Ur Leukocyte Esterase Negative (NEGATIVE) Urine RBC 5-10 H (0-5) Urine WBC 0-5 (0-5) Ur Squamous Epith Cells Occasional (NS,R,O) Amorphous Sediment Few Urine Bacteria Moderate H (NS) 05/06/19 Range/Units 07:57 WBC (4.5-12.0) X10-3/uL RBC (3.23-5.20) x10(6)uL Hgb (11.5-15.5) g/dL Hct (30.0-51.3) % MCV (80-96) fL MCH (27.7-33.6) pg MCHC (32.2-35.4) g/dL RDW (11.5-15.5) % Plt Count (125-369) X10(3)uL MPV (7.4-10.4) fL Add Manual Diff Neutrophils % (Manual) (46-82) % Band Neutrophils % (0-6) % Lymphocytes % (Manual) (13-37) % Monocytes % (Manual) (4-12) % PT (8.7-11.1) INR (0.89-1.13) APTT (24.4-33.2) SECONDS D-Dimer, Quantitative (0.0-0.59) mg/LFEU POC VBG pH 7.29 L (7.31-7.41) POC VBG pCO2 57.1 H (41-51) mmHG POC VBG HCO3 27.4 (23-28) mmol/L POC VBG Total CO2 29 (24-29) mmol/L POC VBG Base Excess 1 (-2-3) mmol/L Sodium (135-145) mmol/L Potassium (3.5-5.3) mmol/L Chloride (100-110) mmol/L Carbon Dioxide (21-32) mmol/L BUN (7-18) mg/dL Creatinine (0.55-1.02) mg/dL Est Cr Clr Drug Dosing Estimated GFR (MDRD) (>60) BUN/Creatinine Ratio (9-20) Glucose (80-116) mg/dL Lactic Acid (0.4-2.0) mmol/L Calcium (8.6-10.2) mg/dL Total Bilirubin (0.1-1.3) mg/dL AST (5-25) IU/L ALT (12-36) U/L Alkaline Phosphatase (56-112) IU/L Troponin I (<0.017-0.056) ng/mL NT-Pro-B Natriuret Pep (<=450) pg/mL Total Protein (6.0-8.0) g/dL Albumin (3.2-4.6) g/dL Globulin g/dL Albumin/Globulin Ratio Urine Color (YELLOW) Urine Appearance (CLEAR) Urine pH (5.0-6.5) Ur Specific [place] (1.010-1.025) Urine Protein (NEGATIVE) mg/dL Urine Glucose (UA) (NORMAL) mg/dL Urine Ketones (NEGATIVE) mg/dL Urine Occult Blood (NEGATIVE) Urine Nitrite (NEGATIVE) Urine Bilirubin (NEGATIVE) Urine Urobilinogen (NEGATIVE) mg/dL Ur Leukocyte Esterase (NEGATIVE) Urine RBC (0-5) Urine WBC (0-5) Ur Squamous Epith Cells (NS,R,O) Amorphous Sediment Urine Bacteria (NS) Result Diagrams: 05/06/19 07:30 05/06/19 07:30 David Results Last 24 hrs: Microbiology 05/06/19 07:26 Influenza Type A Antigen Screen - Final Nasopharyngeal Swab NEGATIVE INFLUENZA A VIRUS AG REFERENCE RANGE: NEGATIVE Influenza Type B Antigen Screen - Final NEGATIVE INFLUENZA B VIRUS AG REFERENCE RANGE: NEGATIVE Sepsis Event Note - Evaluation Sepsis Screening Result: No Definite Risk - Focused Exam Vital Signs: Vital Signs Temp Pulse Pulse Resp BP BP Pulse Ox 05/06/19 13:20 80 05/06/19 13:07 90 160/91 H 05/06/19 11:20 99 05/06/19 09:00 05/06/19 08:24 05/06/19 07:25 05/06/19 07:09 96.9 F 124 H 29 H 208/136 H 93 L Pulse Ox Pulse Ox Pulse Ox 05/06/19 13:20 99 05/06/19 13:07 05/06/19 11:20 99 05/06/19 09:00 100 05/06/19 08:24 100 05/06/19 07:25 100 05/06/19 07:09 Date Exam was Performed: 05/06/19 Time Exam was Performed: 14:39 *Q Meaningful Use (ADM) - VTE *Q VTE Pharmacological Contraindications *Q: High INR Value - Problem List (1) Acute exacerbation of congestive heart failure SNOMED Code(s): 677569715, 90920195866607 ICD Code: I50.9 - HEART FAILURE, UNSPECIFIED Status: Acute Current Visit : Yes Qualifiers: Heart failure type: unspecified Qualified Code(s): I50.9 - Heart failure, unspecified (2) Exacerbation of asthma SNOMED Code(s): 586519084 ICD Code: J45.901 - UNSPECIFIED ASTHMA WITH (ACUTE) EXACERBATION Status: Acute Current Visit: Yes Qualifiers: Asthma severity: moderate Asthma persistence: persistent Qualified Code(s ): J45.41 - Moderate persistent asthma with (acute) exacerbation (3) Pneumonia SNOMED Code(s): 372998244 ICD Code: J18.9 - PNEUMONIA, UNSPECIFIED ORGANISM Status: Acute Current Visit: Yes Qualifiers: Pneumonia type: due to unspecified organism Laterality: bilateral Lung location: lower lobe of lung Qualified Code(s): J18.9 - Pneumonia, unspecified organism (4) Respiratory distress SNOMED Code(s): 249576084 ICD Code: R06.03 - ACUTE RESPIRATORY DISTRESS Status: Acute Current Visit : Yes (5) CKD (chronic kidney disease), stage III SNOMED Code(s): 541277013 ICD Code: N18.3 - CHRONIC KIDNEY DISEASE, STAGE 3 (MODERATE) Status: Acute Current Visit: No Problem Details: Baseline creatinine is 1.4 range which is where she was here. Continue to monitor. (6) Palliative care status SNOMED Code(s): 504325957 ICD Code: Z51.5 - ENCOUNTER FOR PALLIATIVE CARE Status: Acute Current Visit: No (7) Hyponatremia SNOMED Code(s): 55997876 ICD Code: E87.1 - HYPO-OSMOLALITY AND HYPONATREMIA Status: Acute Current Visit: Yes Problem List Initiated/Reviewed/Updated: Yes Orders Last 24hrs: Active Orders 24 hr Category Date Time Status Admission Status [Patient Status] [ADT] Routine ADT 05/06/19 09:25 Active BIPAP Adult [RT BiPAP/CPAP] [RC] ASDIRECTED Care 05/06/19 07:20 Active Cardiac Monitoring [RC] CONTINUOUS Care 05/06/19 09:49 Active EKG Documentation Completion [RC] ASDIRECTED Care 05/06/19 07:11 Active Height and Weight [RC] DAILY Care 05/06/19 09:48 Active Insert Donald Catheter [Insert Urinary Catheter] [OM.PC] Care 05/06/19 07:15 Ordered Q24H Intake and Output [RC] QSHIFT Care 05/06/19 09:49 Active Notify Provider Vital Signs [RC] ASDIRECTED Care 05/06/19 09:49 Active Oxygen Therapy [RC] PRN Care 05/06/19 09:48 Active Pulse Oximetry [RC] CONTINUOUS Care 05/06/19 09:49 Active RT Aerosol Therapy [RC] ASDIRECTED Care 05/06/19 07:21 Active RT Aerosol Therapy [RC] ASDIRECTED Care 05/06/19 09:51 Active Up ad Shayna [RC] ASDIRECTED Care 05/06/19 09:48 Active Urinary Catheter Assessment [RC] QSHIFT Care 05/06/19 07:14 Active VTE/DVT Education [RC] Per Unit Routine Care 05/06/19 09:48 Active Vital Signs [RC] QSHIFT Care 05/06/19 09:48 Active Heart Healthy Diet [DIET] Diet 05/06/19 Lunch Active Ang Chest [CT] Stat Exams 05/06/19 08:18 Taken CXR [Chest 1V Frontal] [CR] Stat Exams 05/06/19 07:10 Taken BASIC METABOLIC PANEL,BMP [CHEM] AM Lab 05/07/19 05:11 Ordered CBC WITH AUTO DIFF [HEME] AM Lab 05/07/19 05:11 Ordered CULTURE BLOOD [BC] Urgent Lab 05/06/19 07:30 Received CULTURE BLOOD [BC] Urgent Lab 05/06/19 07:40 Received INR,PT,PROTHROMBIN TIME [COAG] AM Lab 05/07/19 05:11 Ordered INR,PT,PROTHROMBIN TIME [COAG] DAILY Lab 05/08/19 06:00 Ordered INR,PT,PROTHROMBIN TIME [COAG] DAILY Lab 05/09/19 06:00 Ordered INR,PT,PROTHROMBIN TIME [COAG] DAILY Lab 05/10/19 06:00 Ordered INR,PT,PROTHROMBIN TIME [COAG] DAILY Lab 05/11/19 06:00 Ordered INR,PT,PROTHROMBIN TIME [COAG] DAILY Lab 05/12/19 06:00 Ordered Acetaminophen [Tylenol] Med 05/06/19 09:54 Active 650 mg PO Q4H PRN Albuterol [Proventil Neb Soln] Med 05/06/19 09:48 Active 2.5 mg NEB Q2H PRN Albuterol/Ipratropium [DuoNeb 3.0-0.5 MG/3 ML] Med 05/06/19 11:00 Active 3 ml INH QIDRT Benzonatate [Tessalon Perles] Med 05/06/19 09:54 Active 100 mg PO TID PRN Budesonide [Pulmicort] Med 05/06/19 10:00 Active 0.5 mg NEB BID Docusate Sodium [Colace] Med 05/06/19 10:00 Active 100 mg PO Q48H Furosemide [Lasix] Med 05/07/19 09:00 Active 40 mg IVPUSH DAILY Levothyroxine [Synthroid] Med 05/06/19 10:00 Active 176 mcg PO MoFr@0600 Levothyroxine [Synthroid] Med 05/07/19 06:00 Active 88 mcg PO SUTUWETHSA Magnesium Oxide Med 05/06/19 10:30 Active 400 mg PO DAILY Pantoprazole [ProTONIX] Med 05/06/19 10:00 Active 40 mg PO DAILY Piperacillin/Tazobactam [Zosyn] 3.375 gm Med 05/06/19 16:00 Active Sodium Chloride 0.9% [Normal Saline] 50 ml IV Q6H Rosuvastatin [Crestor] Med 05/06/19 10:00 Active 5 mg PO DAILY Sodium Chloride 0.9% [Saline Flush] Med 05/06/19 07:21 Active 10 ml FLUSH ASDIRECTED PRN Warfarin Sliding Scale [Coumadin Sliding Scale] Med 05/06/19 10:45 Pending 1 each PO ASDIRECTED carvediloL [Coreg] Med 05/06/19 10:00 Active 3.125 mg PO BIDMEALS lisinopriL [Prinivil] Med 05/06/19 10:00 Active 5 mg PO DAILY metFORMIN [Glucophage] Med 05/06/19 18:00 Hold 500 mg PO BIDMEALS methylPREDNISolone Sod Succ [Solu-MEDROL] Med 05/06/19 12:00 Active 60 mg IVPUSH Q6H Blood Culture x2 Reflex Set [OM.PC] Urgent Oth 05/06/19 07:13 Ordered Saline Lock Insert [OM.PC] Routine Oth 05/06/19 07:21 Ordered VTE Pharmacological Contraindications [AST] Per Unit Oth 05/06/19 09:48 Ordered Routine Resuscitation Status Routine Resus Stat 05/06/19 09:48 Ordered EKG 12 Lead [EK] Stat Ther 05/06/19 07:10 Ordered Medication Orders Acetaminophen (Tylenol) 650 mg PO Q4H PRN PRN Reason: Pain/Fever Albuterol (Proventil Neb Soln) 2.5 mg NEB Q2H PRN PRN Reason: Shortness Of Breath/wheezing Albuterol/Ipratropium (Duoneb 3.0-0.5 Mg/3 Ml) 3 ml INH QIDRT [facility] Last Admin: 05/06/19 13:08 Dose: 3 ml Benzonatate (Tessalon Perles) 100 mg PO TID PRN PRN Reason: Cough Budesonide (Pulmicort) 0.5 mg NEB BID [facility] Last Admin: 05/06/19 13:08 Dose: 0.5 mg Carvedilol (Coreg) 3.125 mg PO BIDMEALS [facility] Last Admin: 05/06/19 13:07 Dose: 3.125 mg Docusate Sodium (Colace) 100 mg PO Q48H [facility] Last Admin: 05/06/19 13:07 Dose: 100 mg Furosemide (Lasix) 40 mg IVPUSH DAILY [facility] Piperacillin Sod/Tazobactam (Sod 3.375 gm/ Sodium Chloride) 50 mls @ 100 mls/ hr IV Q6H [facility] Levothyroxine Sodium (Synthroid) 88 mcg PO SUTUWETHSA [facility] Levothyroxine Sodium (Synthroid) 176 mcg PO MoFr@0600 [facility] Lisinopril (Prinivil) 5 mg PO DAILY [facility] Last Admin: 05/06/19 13:07 Dose: 5 mg Magnesium Oxide (Magnesium Oxide) 400 mg PO DAILY [facility] Last Admin: 05/06/19 13:08 Dose: 400 mg Metformin HCl (Glucophage) 500 mg PO BIDMEALS [facility] Methylprednisolone Sodium Succinate (Solu-Medrol) 60 mg IVPUSH Q6H [facility] Last Admin: 05/06/19 13:09 Dose: 60 mg Pantoprazole Sodium (Protonix) 40 mg PO DAILY [facility] Last Admin: 05/06/19 13:08 Dose: 40 mg Rosuvastatin Calcium (Crestor) 5 mg PO DAILY [facility] Last Admin: 05/06/19 13:07 Dose: 5 mg Sodium Chloride (Saline Flush) 10 ml FLUSH ASDIRECTED PRN PRN Reason: Keep Vein Open Last Admin: 05/06/19 07:54 Dose: 10 ml Warfarin Sodium (Coumadin Sliding Scale) 1 each PO ASDIRECTED [facility] Assessment/Plan Comment:: 1. Admit to inpatient 2. Zosyn for pneumonia 3. IV Lasix for CHF 4. Donald catheter in place. Hopefully can remove tomorrow. 5. IV 6. Low-salt diet 7. For DVT prophylaxis she is on Coumadin 8. She elects to be a full code. 9. O2 to keep sats greater than 90%. 10. Up with assist. She normally is in a wheelchair. - Mortality Measure Prognosis:: Good
[2019-05-06] MEDS: Piperacillin/Tazobactam 3.375 GM in Sodium Chloride 0.9% 50 ML IV SCH ×2 (16:39→21:22)
[2019-05-06] MEDS ORDERED: metFORMIN 500 MG Tab PO SCH (18:00)
[2019-05-07] MEDS: Piperacillin/Tazobactam 3.375 GM in Sodium Chloride 0.9% 50 ML IV SCH (04:36)
[2019-05-07] MEDS: methylPREDNISolone Sodium Succinate 125 MG/2 ML SDV IVPUSH SCH ×4 (05:03→23:20)
[2019-05-07] MEDS: Levothyroxine 88 MCG Tab PO SCH (05:04)
[2019-05-07] MEDS: Sodium Chloride 0.9% 10 ML Syringe FLUSH PRN ×4 (05:04→23:21)
[2019-05-07] MEDS: Albuterol/Ipratropium 3.0-0.5 MG/3 ML Neb Soln INH SCH ×4 (06:05→20:00)
--- NOTE | 2019-05-07 08:42 | PCM.PN ---
- General Info Date of Service: 05/07/19 Admission Dx/Problem (Free Text): Patient states she feels much better today. On a pain scale that 10 is the worst and one is the best she is a 4 today. She was 6 yesterday. She is breathing much better but still has a productive cough. She is no fevers, chills or shortness of breath. She is off oxygen. She denies any leg swelling. - Patient Data Vitals - Most Recent: Last Vital Signs Temp 99.0 F 05/06/19 23:43 Pulse 65 05/06/19 23:43 Resp 17 05/06/19 23:43 BP 140/64 05/06/19 23:43 Pulse Ox 100 05/06/19 23:43 Weight - Most Recent: 168 lb 8 oz I&O - Last 24 Hours: Intake & Output 05/06/19 05/07/19 05/07/19 22:59 06:59 14:59 Intake Total 1700 250 450 Output Total 1600 250 Balance 100 0 450 Lab Results Last 24 Hours: Laboratory Results - last 24 hr 05/06/19 05/06/19 05/07/19 Range/Units 07:40 17:21 06:25 WBC 3.7 L (4.5-12.0) X10-3/uL RBC 3.08 L (3.23-5.20) x10(6)uL Hgb 9.0 L (11.5-15.5) g/dL Hct 27.5 L (30.0-51.3) % MCV 89.2 (80-96) fL MCH 29.2 (27.7-33.6) pg MCHC 32.8 (32.2-35.4) g/dL RDW 14.1 (11.5-15.5) % Plt Count 223 (125-369) X10(3)uL MPV 8.6 (7.4-10.4) fL Neut % (Auto) 83.6 H (46-82) % Lymph % (Auto) 12.2 L (13-37) % Ector % (Auto) 4.2 (4-12) % Eos % (Auto) 0 L (1.0-5.0) % Baso % (Auto) 0 (0-2) % Neut # (Auto) 3.0 (1.6-8.3) # Lymph # (Auto) 0.5 L (0.6-5.0) # Ector # (Auto) 0.2 (0.0-1.3) # Eos # (Auto) 0.0 (0.0-0.8) # Baso # (Auto) 0.0 (0.0-0.2) # PT (8.7-11.1) INR (0.89-1.13) Sodium (135-145) mmol/L Potassium (3.5-5.3) mmol/L Chloride (100-110) mmol/L Carbon Dioxide (21-32) mmol/L BUN (7-18) mg/dL Creatinine (0.55-1.02) mg/dL Est Cr Clr Drug Dosing mL/min Estimated GFR (MDRD) (>60) BUN/Creatinine Ratio (9-20) Glucose (80-116) mg/dL POC Glucose 301 H D (80-116) mg/dL Calcium (8.6-10.2) mg/dL Urine Color Yellow (YELLOW) Urine Appearance Slightly cloudy (CLEAR) Urine pH 5.0 (5.0-6.5) Ur Specific [place] 1.020 (1.010-1.025) Urine Protein 500 H (NEGATIVE) mg/dL Urine Glucose (UA) Normal (NORMAL) mg/dL Urine Ketones Negative (NEGATIVE) mg/dL Urine Occult Blood Moderate H (NEGATIVE) Urine Nitrite Negative (NEGATIVE) Urine Bilirubin Negative (NEGATIVE) Urine Urobilinogen Normal (NEGATIVE) mg/dL Ur Leukocyte Esterase Negative (NEGATIVE) Urine RBC 5-10 H (0-5) Urine WBC 0-5 (0-5) Ur Squamous Epith Cells Occasional (NS,R,O) Amorphous Sediment Few Urine Bacteria Moderate H (NS) 05/07/19 05/07/19 05/07/19 Range/Units 06:25 06:25 06:33 WBC (4.5-12.0) X10-3/uL RBC (3.23-5.20) x10(6)uL Hgb (11.5-15.5) g/dL Hct (30.0-51.3) % MCV (80-96) fL MCH (27.7-33.6) pg MCHC (32.2-35.4) g/dL RDW (11.5-15.5) % Plt Count (125-369) X10(3)uL MPV (7.4-10.4) fL Neut % (Auto) (46-82) % Lymph % (Auto) (13-37) % Ector % (Auto) (4-12) % Eos % (Auto) (1.0-5.0) % Baso % (Auto) (0-2) % Neut # (Auto) (1.6-8.3) # Lymph # (Auto) (0.6-5.0) # Ector # (Auto) (0.0-1.3) # Eos # (Auto) (0.0-0.8) # Baso # (Auto) (0.0-0.2) # PT 36.5 H* (8.7-11.1) INR 3.81 H (0.89-1.13) Sodium 133 L (135-145) mmol/L Potassium 4.2 (3.5-5.3) mmol/L Chloride 96 L (100-110) mmol/L Carbon Dioxide 25 (21-32) mmol/L BUN 38 H D (7-18) mg/dL Creatinine 1.6 H (0.55-1.02) mg/dL Est Cr Clr Drug Dosing 19.40 mL/min Estimated GFR (MDRD) 31 L (>60) BUN/Creatinine Ratio 23.8 H (9-20) Glucose 224 H (80-116) mg/dL POC Glucose 235 H (80-116) mg/dL Calcium 8.9 (8.6-10.2) mg/dL Urine Color (YELLOW) Urine Appearance (CLEAR) Urine pH (5.0-6.5) Ur Specific [place] (1.010-1.025) Urine Protein (NEGATIVE) mg/dL Urine Glucose (UA) (NORMAL) mg/dL Urine Ketones (NEGATIVE) mg/dL Urine Occult Blood (NEGATIVE) Urine Nitrite (NEGATIVE) Urine Bilirubin (NEGATIVE) Urine Urobilinogen (NEGATIVE) mg/dL Ur Leukocyte Esterase (NEGATIVE) Urine RBC (0-5) Urine WBC (0-5) Ur Squamous Epith Cells (NS,R,O) Amorphous Sediment Urine Bacteria (NS) David Results Last 24 Hours: Microbiology 05/06/19 07:30 Aerobic Blood Culture - Preliminary Blood - Venous NO GROWTH AFTER 1 DAY Anaerobic Blood Culture - Preliminary NO GROWTH AFTER 1 DAY 05/06/19 07:40 Aerobic Blood Culture - Preliminary Blood - Venous - Lab Draw NO GROWTH AFTER 1 DAY Anaerobic Blood Culture - Preliminary NO GROWTH AFTER 1 DAY 05/06/19 07:26 Influenza Type A Antigen Screen - Final Nasopharyngeal Swab NEGATIVE INFLUENZA A VIRUS AG REFERENCE RANGE: NEGATIVE Influenza Type B Antigen Screen - Final NEGATIVE INFLUENZA B VIRUS AG REFERENCE RANGE: NEGATIVE Med Orders - Current: Current Medications Acetaminophen (Tylenol) 650 mg PO Q4H PRN PRN Reason: Pain/Fever Albuterol (Proventil Neb Soln) 2.5 mg NEB Q2H PRN PRN Reason: Shortness Of Breath/wheezing Albuterol/Ipratropium (Duoneb 3.0-0.5 Mg/3 Ml) 3 ml INH QIDRT [facility] Last Admin: 05/07/19 06:05 Dose: 3 ml Benzonatate (Tessalon Perles) 100 mg PO TID PRN PRN Reason: Cough Budesonide (Pulmicort) 0.5 mg NEB BID [facility] Last Admin: 05/06/19 20:15 Dose: 0.5 mg Carvedilol (Coreg) 3.125 mg PO BIDMEALS [facility] Last Admin: 05/06/19 17:30 Dose: 3.125 mg Docusate Sodium (Colace) 100 mg PO Q48H [facility] Last Admin: 05/06/19 13:07 Dose: 100 mg Furosemide (Lasix) 40 mg PO DAILY [facility] Levothyroxine Sodium (Synthroid) 88 mcg PO SUTUWETHSA [facility] Last Admin: 05/07/19 05:04 Dose: 88 mcg Levothyroxine Sodium (Synthroid) 176 mcg PO MoFr@0600 [facility] Last Admin: 05/06/19 16:33 Dose: 176 mcg Lisinopril (Prinivil) 5 mg PO DAILY [facility] Last Admin: 05/06/19 13:07 Dose: 5 mg Magnesium Oxide (Magnesium Oxide) 400 mg PO DAILY [facility] Last Admin: 05/06/19 13:08 Dose: 400 mg Metformin HCl (Glucophage) 500 mg PO BIDMEALS [facility] Methylprednisolone Sodium Succinate (Solu-Medrol) 60 mg IVPUSH Q6H [facility] Last Admin: 05/07/19 05:03 Dose: 60 mg Pantoprazole Sodium (Protonix) 40 mg PO DAILY [facility] Last Admin: 05/06/19 13:08 Dose: 40 mg Prednisone (Prednisone) 40 mg PO WITHBREAKFAST [facility] Rosuvastatin Calcium (Crestor) 5 mg PO DAILY [facility] Last Admin: 05/06/19 13:07 Dose: 5 mg Sodium Chloride (Saline Flush) 10 ml FLUSH ASDIRECTED PRN PRN Reason: Keep Vein Open Last Admin: 05/07/19 05:04 Dose: 10 ml Discontinued Medications Albuterol/Ipratropium (Duoneb 3.0-0.5 Mg/3 Ml) 3 ml NEB ONETIME ONE Stop: 05/06/19 07:22 Last Admin: 05/06/19 07:42 Dose: 3 ml Dexamethasone (Dexamethasone) 10 mg IVPUSH ONETIME ONE Stop: 05/06/19 07:22 Last Admin: 05/06/19 07:43 Dose: 10 mg Furosemide (Lasix) 40 mg IVPUSH NOW ONE Stop: 05/06/19 07:15 Last Admin: 05/06/19 07:53 Dose: 40 mg Furosemide (Lasix) 40 mg IVPUSH DAILY [facility] Piperacillin Sod/Tazobactam (Sod 3.375 gm/ Sodium Chloride) 50 mls @ 100 mls/ hr IV .ONCE ONE Stop: 05/06/19 09:46 Last Admin: 05/06/19 09:25 Dose: 100 mls/hr Piperacillin Sod/Tazobactam (Sod 3.375 gm/ Sodium Chloride) 50 mls @ 100 mls/ hr IV Q6H [facility] Last Admin: 05/07/19 04:36 Dose: 100 mls/hr Iopamidol (Isovue-370 (76%)) 100 ml IV . DIRECTED ONE Stop: 05/06/19 08:28 Last Admin: 05/06/19 08:33 Dose: 66 ml Labetalol HCl (Normodyne) 10 mg IVPUSH ONETIME ONE; Protocol Stop: 05/06/19 08:01 Last Admin: 05/06/19 08:00 Dose: 10 mg Warfarin Sodium (Coumadin Sliding Scale) 1 each PO ASDIRECTED [facility] - Exam General: Alert, Oriented Lungs: Normal Respiratory Effort, Wheezing (Expiratory but good air movement bilaterally) Cardiovascular: Regular Rate, Regular Rhythm, No Murmurs Extremities: No Pedal Edema Sepsis Event Note - Evaluation Sepsis Screening Result: No Definite Risk - Focused Exam Vital Signs: Vital Signs Temp Pulse Resp BP Pulse Ox 05/06/19 23:43 99.0 F 65 17 140/64 100 05/06/19 21:30 98 Date Exam was Performed: 05/07/19 Time Exam was Performed: 08:39 - Problem List & Annotations (1) Acute exacerbation of congestive heart failure SNOMED Code(s): 464718777, 47309357331503 Code(s): I50.9 - HEART FAILURE, UNSPECIFIED Status: Acute Current Visit: Yes Qualifiers: Heart failure type: unspecified Qualified Code(s): I50.9 - Heart failure, unspecified (2) Exacerbation of asthma SNOMED Code(s): 004261405 Code(s): J45.901 - UNSPECIFIED ASTHMA WITH (ACUTE) EXACERBATION Status: Acute Current Visit: Yes Qualifiers: Asthma severity: moderate Asthma persistence: persistent Qualified Code(s ): J45.41 - Moderate persistent asthma with (acute) exacerbation (3) Pneumonia SNOMED Code(s): 682314391 Code(s): J18.9 - PNEUMONIA, UNSPECIFIED ORGANISM Status: Acute Current Visit: Yes Qualifiers: Pneumonia type: due to unspecified organism Laterality: bilateral Lung location: lower lobe of lung Qualified Code(s): J18.9 - Pneumonia, unspecified organism (4) Respiratory distress SNOMED Code(s): 518140623 Code(s): R06.03 - ACUTE RESPIRATORY DISTRESS Status: Acute Current Visit : Yes (5) CKD (chronic kidney disease), stage III SNOMED Code(s): 053276528 Code(s): N18.3 - CHRONIC KIDNEY DISEASE, STAGE 3 (MODERATE) Status: Acute Current Visit: No Annotation/Comment:: Baseline creatinine is 1.4 range which is where she was here. Continue to monitor. (6) Palliative care status SNOMED Code(s): 897729577 Code(s): Z51.5 - ENCOUNTER FOR PALLIATIVE CARE Status: Acute Current Visit: No (7) Hyponatremia SNOMED Code(s): 80009079 Code(s): E87.1 - HYPO-OSMOLALITY AND HYPONATREMIA Status: Acute Current Visit: Yes - Problem List Review Problem List Initiated/Reviewed/Updated: Yes - My Orders Last 24 Hours: My Active Orders 05/06/19 17:25 Accu Check [Blood Glucose Check, Bedside] [RC] BIDAC 05/06/19 Dinner Low Sodium [Sodium Restricted Diet] [DIET] 05/07/19 08:34 DC Donald Catheter [Urinary Catheter Removal] [RC] Per Unit Routine 05/07/19 08:35 Ambulate [RC] PER UNIT ROUTINE Discontinue Telemetry Monitoring [Cardiac Monitoring Discontinue] [RC] Click to Edit 05/07/19 08:37 Accu Check [Blood Glucose Check, Bedside] [RC] BIDMEALS 05/07/19 09:00 Furosemide [Lasix] 40 mg PO DAILY 05/08/19 06:00 INR,PT,PROTHROMBIN TIME [COAG] DAILY 05/08/19 08:00 predniSONE 40 mg PO WITHBREAKFAST 05/09/19 06:00 INR,PT,PROTHROMBIN TIME [COAG] DAILY 05/10/19 06:00 INR,PT,PROTHROMBIN TIME [COAG] DAILY 05/11/19 06:00 INR,PT,PROTHROMBIN TIME [COAG] DAILY 05/12/19 06:00 INR,PT,PROTHROMBIN TIME [COAG] DAILY - Plan Plan:: 1. Hold Coumadin today and check INR in the a.m. 2. DC telemetry and Donald catheter 3. DC IV Lasix and go to his 40 mg of by mouth Lasix 4. UA in 2 days 5. Accu-Cheks twice a day. Patient currently not on diabetic diet will see how her blood sugars are before we switch her from low-sodium. 6. Check BMP in the a.m.
[2019-05-07] MEDS ORDERED: Furosemide 40 MG/4 ML VIAL IVPUSH SCH (09:00)
[2019-05-07] MEDS ORDERED: Warfarin 2.5 MG Tab PO SCH (09:00)
[2019-05-07] MEDS: Furosemide 40 MG Tab PO SCH (09:05)
[2019-05-07] MEDS: Rosuvastatin 10 MG Tab PO SCH (09:06)
[2019-05-07] MEDS: Lisinopril 5 MG Tab PO SCH (09:06)
[2019-05-07] MEDS: Pantoprazole 40 MG Tab.CR PO SCH (09:07)
[2019-05-07] MEDS: Carvedilol 3.125 MG Tab PO SCH ×2 (09:07→18:04)
[2019-05-07] MEDS: Budesonide 0.5 MG/2 ML Neb Susp NEB SCH ×2 (09:08→20:18)
[2019-05-07] MEDS: Magnesium Oxide 400 MG Tab PO SCH (09:08)
[2019-05-07] MEDS: Insulin Lispro 100 Unit/ML 3 ML KwikPen SUBCUT SCH ×2 (18:02→20:04)
[2019-05-08] MEDS: Levothyroxine 88 MCG Tab PO SCH (05:17)
[2019-05-08] MEDS: methylPREDNISolone Sodium Succinate 125 MG/2 ML SDV IVPUSH SCH ×2 (05:17→14:52)
[2019-05-08] MEDS: Sodium Chloride 0.9% 10 ML Syringe FLUSH PRN (05:18)
[2019-05-08] MEDS: Albuterol/Ipratropium 3.0-0.5 MG/3 ML Neb Soln INH SCH ×2 (05:50→14:51)
--- NOTE | 2019-05-08 06:25 | PCM.PN ---
- General Info Date of Service: 05/08/19 Admission Dx/Problem (Free Text): Numbness to hands Subjective Update: Called to see patient by RN because she had trouble standing during transfer to the toilet, then became very upset and anxious. Patient complains of numbness to hands bilaterally and appears very anxious, she believes she may be having a stroke. She denies focal weakness or headache. Patient states she had a stroke @ 30 yrs ago presenting with left sided weakness. - Review of Systems General: Reports: No Symptoms HEENT: Reports: No Symptoms Pulmonary: Reports: No Symptoms Cardiovascular: Reports: No Symptoms Gastrointestinal: Reports: No Symptoms Genitourinary: Reports: No Symptoms Musculoskeletal: Reports: No Symptoms Skin: Reports: No Symptoms Neurological: Reports: Numbness (hands) Psychiatric: Reports: No Symptoms - Patient Data Vitals - Most Recent: Last Vital Signs Temp 36.6 C 05/08/19 00:00 Pulse 73 05/08/19 00:00 Resp 18 05/08/19 00:00 BP 155/78 H 05/08/19 00:00 Pulse Ox 98 05/08/19 00:00 Weight - Most Recent: 76.612 kg I&O - Last 24 Hours: Intake & Output 05/07/19 05/07/19 05/08/19 14:59 22:59 06:59 Intake Total 950 700 150 Output Total 550 275 Balance 950 150 -125 Lab Results Last 24 Hours: Laboratory Results - last 24 hr 05/07/19 05/07/19 05/07/19 Range/Units 06:25 06:25 06:25 WBC 3.7 L (4.5-12.0) X10-3/uL RBC 3.08 L (3.23-5.20) x10(6)uL Hgb 9.0 L (11.5-15.5) g/dL Hct 27.5 L (30.0-51.3) % MCV 89.2 (80-96) fL MCH 29.2 (27.7-33.6) pg MCHC 32.8 (32.2-35.4) g/dL RDW 14.1 (11.5-15.5) % Plt Count 223 (125-369) X10(3)uL MPV 8.6 (7.4-10.4) fL Neut % (Auto) 83.6 H (46-82) % Lymph % (Auto) 12.2 L (13-37) % Mcdonald % (Auto) 4.2 (4-12) % Eos % (Auto) 0 L (1.0-5.0) % Baso % (Auto) 0 (0-2) % Neut # (Auto) 3.0 (1.6-8.3) # Lymph # (Auto) 0.5 L (0.6-5.0) # Mcdonald # (Auto) 0.2 (0.0-1.3) # Eos # (Auto) 0.0 (0.0-0.8) # Baso # (Auto) 0.0 (0.0-0.2) # PT 36.5 H* (8.7-11.1) INR 3.81 H (0.89-1.13) Sodium 133 L (135-145) mmol/L Potassium 4.2 (3.5-5.3) mmol/L Chloride 96 L (100-110) mmol/L Carbon Dioxide 25 (21-32) mmol/L BUN 38 H D (7-18) mg/dL Creatinine 1.6 H (0.55-1.02) mg/dL Est Cr Clr Drug Dosing 19.40 mL/min Estimated GFR (MDRD) 31 L (>60) BUN/Creatinine Ratio 23.8 H (9-20) Glucose 224 H (80-116) mg/dL POC Glucose (80-116) mg/dL Calcium 8.9 (8.6-10.2) mg/dL 05/07/19 05/07/19 05/07/19 Range/Units 06:33 17:10 20:04 WBC (4.5-12.0) X10-3/uL RBC (3.23-5.20) x10(6)uL Hgb (11.5-15.5) g/dL Hct (30.0-51.3) % MCV (80-96) fL MCH (27.7-33.6) pg MCHC (32.2-35.4) g/dL RDW (11.5-15.5) % Plt Count (125-369) X10(3)uL MPV (7.4-10.4) fL Neut % (Auto) (46-82) % Lymph % (Auto) (13-37) % Mcdonald % (Auto) (4-12) % Eos % (Auto) (1.0-5.0) % Baso % (Auto) (0-2) % Neut # (Auto) (1.6-8.3) # Lymph # (Auto) (0.6-5.0) # Mcdonald # (Auto) (0.0-1.3) # Eos # (Auto) (0.0-0.8) # Baso # (Auto) (0.0-0.2) # PT (8.7-11.1) INR (0.89-1.13) Sodium (135-145) mmol/L Potassium (3.5-5.3) mmol/L Chloride (100-110) mmol/L Carbon Dioxide (21-32) mmol/L BUN (7-18) mg/dL Creatinine (0.55-1.02) mg/dL Est Cr Clr Drug Dosing mL/min Estimated GFR (MDRD) (>60) BUN/Creatinine Ratio (9-20) Glucose (80-116) mg/dL POC Glucose 235 H 367 H D 301 H (80-116) mg/dL Calcium (8.6-10.2) mg/dL 05/08/19 Range/Units 05:29 WBC (4.5-12.0) X10-3/uL RBC (3.23-5.20) x10(6)uL Hgb (11.5-15.5) g/dL Hct (30.0-51.3) % MCV (80-96) fL MCH (27.7-33.6) pg MCHC (32.2-35.4) g/dL RDW (11.5-15.5) % Plt Count (125-369) X10(3)uL MPV (7.4-10.4) fL Neut % (Auto) (46-82) % Lymph % (Auto) (13-37) % Mcdonald % (Auto) (4-12) % Eos % (Auto) (1.0-5.0) % Baso % (Auto) (0-2) % Neut # (Auto) (1.6-8.3) # Lymph # (Auto) (0.6-5.0) # Mcdonald # (Auto) (0.0-1.3) # Eos # (Auto) (0.0-0.8) # Baso # (Auto) (0.0-0.2) # PT (8.7-11.1) INR (0.89-1.13) Sodium (135-145) mmol/L Potassium (3.5-5.3) mmol/L Chloride (100-110) mmol/L Carbon Dioxide (21-32) mmol/L BUN (7-18) mg/dL Creatinine (0.55-1.02) mg/dL Est Cr Clr Drug Dosing mL/min Estimated GFR (MDRD) (>60) BUN/Creatinine Ratio (9-20) Glucose (80-116) mg/dL POC Glucose 224 H (80-116) mg/dL Calcium (8.6-10.2) mg/dL David Results Last 24 Hours: Microbiology 05/06/19 07:30 Aerobic Blood Culture - Preliminary Blood - Venous NO GROWTH AFTER 1 DAY Anaerobic Blood Culture - Preliminary NO GROWTH AFTER 1 DAY 05/06/19 07:40 Aerobic Blood Culture - Preliminary Blood - Venous - Lab Draw NO GROWTH AFTER 1 DAY Anaerobic Blood Culture - Preliminary NO GROWTH AFTER 1 DAY Med Orders - Current: Current Medications Acetaminophen (Tylenol) 650 mg PO Q4H PRN PRN Reason: Pain/Fever Albuterol (Proventil Neb Soln) 2.5 mg NEB Q2H PRN PRN Reason: Shortness Of Breath/wheezing Albuterol/Ipratropium (Duoneb 3.0-0.5 Mg/3 Ml) 3 ml INH QIDRT [facility] Last Admin: 05/07/19 20:00 Dose: 3 ml Benzonatate (Tessalon Perles) 100 mg PO TID PRN PRN Reason: Cough Budesonide (Pulmicort) 0.5 mg NEB BID [facility] Last Admin: 05/07/19 20:18 Dose: 0.5 mg Carvedilol (Coreg) 3.125 mg PO BIDMEALS [facility] Last Admin: 05/07/19 18:04 Dose: 3.125 mg Docusate Sodium (Colace) 100 mg PO Q48H [facility] Last Admin: 05/06/19 13:07 Dose: 100 mg Furosemide (Lasix) 40 mg PO DAILY [facility] Last Admin: 05/07/19 09:05 Dose: 40 mg Insulin Human Lispro (Humalog) 0 unit SUBCUT QIDACANDBED [facility]; Protocol Last Admin: 05/07/19 20:04 Dose: 4 units Levothyroxine Sodium (Synthroid) 88 mcg PO SUTUWETHSA [facility] Last Admin: 05/08/19 05:17 Dose: 88 mcg Levothyroxine Sodium (Synthroid) 176 mcg PO MoFr@0600 [facility] Last Admin: 05/06/19 16:33 Dose: 176 mcg Lisinopril (Prinivil) 5 mg PO DAILY [facility] Last Admin: 05/07/19 09:06 Dose: 5 mg Magnesium Oxide (Magnesium Oxide) 400 mg PO DAILY [facility] Last Admin: 05/07/19 09:08 Dose: 400 mg Metformin HCl (Glucophage) 500 mg PO BIDMEALS [facility] Methylprednisolone Sodium Succinate (Solu-Medrol) 60 mg IVPUSH Q6H [facility] Last Admin: 05/08/19 05:17 Dose: 60 mg Pantoprazole Sodium (Protonix) 40 mg PO DAILY [facility] Last Admin: 05/07/19 09:07 Dose: 40 mg Prednisone (Prednisone) 40 mg PO WITHBREAKFAST [facility] Rosuvastatin Calcium (Crestor) 5 mg PO DAILY [facility] Last Admin: 05/07/19 09:06 Dose: 5 mg Sodium Chloride (Saline Flush) 10 ml FLUSH ASDIRECTED PRN PRN Reason: Keep Vein Open Last Admin: 05/08/19 05:18 Dose: 10 ml Discontinued Medications Albuterol/Ipratropium (Duoneb 3.0-0.5 Mg/3 Ml) 3 ml NEB ONETIME ONE Stop: 05/06/19 07:22 Last Admin: 05/06/19 07:42 Dose: 3 ml Dexamethasone (Dexamethasone) 10 mg IVPUSH ONETIME ONE Stop: 05/06/19 07:22 Last Admin: 05/06/19 07:43 Dose: 10 mg Furosemide (Lasix) 40 mg IVPUSH NOW ONE Stop: 05/06/19 07:15 Last Admin: 05/06/19 07:53 Dose: 40 mg Furosemide (Lasix) 40 mg IVPUSH DAILY [facility] Piperacillin Sod/Tazobactam (Sod 3.375 gm/ Sodium Chloride) 50 mls @ 100 mls/ hr IV .ONCE ONE Stop: 05/06/19 09:46 Last Admin: 05/06/19 09:25 Dose: 100 mls/hr Piperacillin Sod/Tazobactam (Sod 3.375 gm/ Sodium Chloride) 50 mls @ 100 mls/ hr IV Q6H [facility] Last Admin: 05/07/19 04:36 Dose: 100 mls/hr Iopamidol (Isovue-370 (76%)) 100 ml IV . DIRECTED ONE Stop: 05/06/19 08:28 Last Admin: 05/06/19 08:33 Dose: 66 ml Labetalol HCl (Normodyne) 10 mg IVPUSH ONETIME ONE; Protocol Stop: 05/06/19 08:01 Last Admin: 05/06/19 08:00 Dose: 10 mg Warfarin Sodium (Coumadin Sliding Scale) 1 each PO ASDIRECTED [facility] - Exam General: Alert, Oriented HEENT: Pupils Equal, Pupils Reactive, EOMI Neck: Supple Extremities: Normal Inspection, Normal Range of Motion Neurological: No New Focal Deficit, Normal Speech, Strength Equal Bilateral, Sensation Intact, Cranial Nerves Intact Psy/Mental Status: Alert, Anxious Sepsis Event Note - Evaluation Sepsis Screening Result: No Definite Risk - Focused Exam Vital Signs: Vital Signs Temp Pulse Resp BP Pulse Ox 05/08/19 00:00 36.6 C 73 18 155/78 H 98 Date Exam was Performed: 05/08/19 Time Exam was Performed: 06:25 - Problem List Review Problem List Initiated/Reviewed/Updated: Yes - My Orders Last 24 Hours: My Active Orders 05/07/19 06:00 Levothyroxine [Synthroid] 88 mcg PO SUTUWETHSA 05/08/19 06:20 Head wo Cont [CT] Stat 05/08/19 06:21 EKG Documentation Completion [RC] ASDIRECTED EKG 12 Lead [EK] Stat - Assessment Assessment:: Numbness to bilateral hands. - Plan Plan:: EKG and Head CT, labs pending this morning.
[2019-05-08] MEDS ORDERED: predniSONE 20 MG Tab PO SCH (08:00)
[2019-05-08] MEDS: Insulin Lispro 100 Unit/ML 3 ML KwikPen SUBCUT SCH ×2 (08:15→14:52)
[2019-05-08] MEDS: Carvedilol 3.125 MG Tab PO SCH (08:16)
[2019-05-08] MEDS: Lisinopril 5 MG Tab PO SCH (08:17)
[2019-05-08] MEDS: Magnesium Oxide 400 MG Tab PO SCH (08:18)
[2019-05-08] MEDS: Rosuvastatin 10 MG Tab PO SCH (08:19)
[2019-05-08] MEDS: Furosemide 40 MG Tab PO SCH (08:23)
[2019-05-08] MEDS: Pantoprazole 40 MG Tab.CR PO SCH (08:23)
[2019-05-08 08:32] VITALS: BP 178/84
[2019-05-08] MEDS: Budesonide 0.5 MG/2 ML Neb Susp NEB SCH (08:40)
--- NOTE | 2019-05-08 09:59 | PCM.PN ---
- General Info Date of Service: 05/08/19 Admission Dx/Problem (Free Text): The patient states today that she doesn't feel quite right. She says she tried to get up and she was week. She did not sleep that well last night. She does not get up on her own at home. She doesn't think she is confused today but felt a little not right today. She did have a CT scan after being evaluated with the ER doctor. 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 She says her lungs are doing well she has no shortness of breath, chest pain, fevers, chills with or leg swelling. Just a little bit of cough. - Patient Data Vitals - Most Recent: Last Vital Signs Temp 97.8 F 05/08/19 00:00 Pulse 78 05/08/19 08:40 Resp 18 05/08/19 00:00 BP 178/84 H 05/08/19 08:17 Pulse Ox 98 05/08/19 00:00 Weight - Most Recent: 168 lb 14.4 oz I&O - Last 24 Hours: Intake & Output 05/07/19 05/08/19 05/08/19 22:59 06:59 14:59 Intake Total 700 150 Output Total 550 275 Balance 150 -125 Lab Results Last 24 Hours: Laboratory Results - last 24 hr 05/07/19 05/07/19 05/08/19 Range/Units 17:10 20:04 05:29 PT (8.7-11.1) INR (0.89-1.13) Sodium (135-145) mmol/L Potassium (3.5-5.3) mmol/L Chloride (100-110) mmol/L Carbon Dioxide (21-32) mmol/L BUN (7-18) mg/dL Creatinine (0.55-1.02) mg/dL Est Cr Clr Drug Dosing mL/min Estimated GFR (MDRD) (>60) BUN/Creatinine Ratio (9-20) Glucose (80-116) mg/dL POC Glucose 367 H D 301 H 224 H (80-116) mg/dL Calcium (8.6-10.2) mg/dL 05/08/19 05/08/19 Range/Units 07:10 07:10 PT 32.0 H (8.7-11.1) INR 3.34 H (0.89-1.13) Sodium 134 L (135-145) mmol/L Potassium 4.5 (3.5-5.3) mmol/L Chloride 97 L (100-110) mmol/L Carbon Dioxide 26 (21-32) mmol/L BUN 45 H (7-18) mg/dL Creatinine 1.7 H (0.55-1.02) mg/dL Est Cr Clr Drug Dosing 18.26 mL/min Estimated GFR (MDRD) 29 L (>60) BUN/Creatinine Ratio 26.5 H (9-20) Glucose 236 H (80-116) mg/dL POC Glucose (80-116) mg/dL Calcium 9.2 (8.6-10.2) mg/dL David Results Last 24 Hours: Microbiology 05/06/19 07:40 Aerobic Blood Culture - Preliminary Blood - Venous - Lab Draw NO GROWTH AFTER 2 DAYS Anaerobic Blood Culture - Preliminary NO GROWTH AFTER 2 DAYS 05/06/19 07:30 Aerobic Blood Culture - Preliminary Blood - Venous NO GROWTH AFTER 2 DAYS Anaerobic Blood Culture - Preliminary NO GROWTH AFTER 2 DAYS Med Orders - Current: Current Medications Acetaminophen (Tylenol) 650 mg PO Q4H PRN PRN Reason: Pain/Fever Albuterol (Proventil Neb Soln) 2.5 mg NEB Q2H PRN PRN Reason: Shortness Of Breath/wheezing Albuterol/Ipratropium (Duoneb 3.0-0.5 Mg/3 Ml) 3 ml INH QIDRT [facility] Last Admin: 05/07/19 20:00 Dose: 3 ml Benzonatate (Tessalon Perles) 100 mg PO TID PRN PRN Reason: Cough Budesonide (Pulmicort) 0.5 mg NEB BID [facility] Last Admin: 05/08/19 08:40 Dose: 0.5 mg Carvedilol (Coreg) 3.125 mg PO BIDMEALS [facility] Last Admin: 05/08/19 08:16 Dose: 3.125 mg Docusate Sodium (Colace) 100 mg PO Q48H [facility] Last Admin: 05/06/19 13:07 Dose: 100 mg Furosemide (Lasix) 40 mg PO DAILY [facility] Last Admin: 05/08/19 08:23 Dose: 40 mg Insulin Human Lispro (Humalog) 0 unit SUBCUT QIDACANDBED [facility]; Protocol Last Admin: 05/08/19 08:15 Dose: 2 units Levothyroxine Sodium (Synthroid) 88 mcg PO SUTUWETHSA [facility] Last Admin: 05/08/19 05:17 Dose: 88 mcg Levothyroxine Sodium (Synthroid) 176 mcg PO MoFr@0600 [facility] Last Admin: 05/06/19 16:33 Dose: 176 mcg Lisinopril (Prinivil) 5 mg PO DAILY [facility] Last Admin: 05/08/19 08:17 Dose: 5 mg Magnesium Oxide (Magnesium Oxide) 400 mg PO DAILY [facility] Last Admin: 05/08/19 08:18 Dose: 400 mg Metformin HCl (Glucophage) 500 mg PO BIDMEALS [facility] Methylprednisolone Sodium Succinate (Solu-Medrol) 60 mg IVPUSH Q6H [facility] Last Admin: 05/08/19 05:17 Dose: 60 mg Pantoprazole Sodium (Protonix) 40 mg PO DAILY [facility] Last Admin: 05/08/19 08:23 Dose: 40 mg Prednisone (Prednisone) 40 mg PO WITHBREAKFAST [facility] Last Admin: 05/08/19 08:38 Dose: 40 mg Rosuvastatin Calcium (Crestor) 5 mg PO DAILY [facility] Last Admin: 05/08/19 08:19 Dose: 5 mg Sodium Chloride (Saline Flush) 10 ml FLUSH ASDIRECTED PRN PRN Reason: Keep Vein Open Last Admin: 05/08/19 05:18 Dose: 10 ml Discontinued Medications Albuterol/Ipratropium (Duoneb 3.0-0.5 Mg/3 Ml) 3 ml NEB ONETIME ONE Stop: 05/06/19 07:22 Last Admin: 05/06/19 07:42 Dose: 3 ml Dexamethasone (Dexamethasone) 10 mg IVPUSH ONETIME ONE Stop: 05/06/19 07:22 Last Admin: 05/06/19 07:43 Dose: 10 mg Furosemide (Lasix) 40 mg IVPUSH NOW ONE Stop: 05/06/19 07:15 Last Admin: 05/06/19 07:53 Dose: 40 mg Furosemide (Lasix) 40 mg IVPUSH DAILY [facility] Piperacillin Sod/Tazobactam (Sod 3.375 gm/ Sodium Chloride) 50 mls @ 100 mls/ hr IV .ONCE ONE Stop: 05/06/19 09:46 Last Admin: 05/06/19 09:25 Dose: 100 mls/hr Piperacillin Sod/Tazobactam (Sod 3.375 gm/ Sodium Chloride) 50 mls @ 100 mls/ hr IV Q6H [facility] Last Admin: 05/07/19 04:36 Dose: 100 mls/hr Iopamidol (Isovue-370 (76%)) 100 ml IV . DIRECTED ONE Stop: 05/06/19 08:28 Last Admin: 05/06/19 08:33 Dose: 66 ml Labetalol HCl (Normodyne) 10 mg IVPUSH ONETIME ONE; Protocol Stop: 05/06/19 08:01 Last Admin: 05/06/19 08:00 Dose: 10 mg Warfarin Sodium (Coumadin Sliding Scale) 1 each PO ASDIRECTED [facility] - Exam General: Alert, Oriented, Cooperative Lungs: Clear to Auscultation, Normal Respiratory Effort. No: Crackles, Rales, Rhonchi, Wheezing Cardiovascular: Regular Rate, No Murmurs Extremities: No Pedal Edema Sepsis Event Note - Evaluation Sepsis Screening Result: No Definite Risk - Focused Exam Vital Signs: Vital Signs Temp Pulse Pulse Resp BP BP Pulse Ox 05/08/19 08:40 78 05/08/19 08:17 178/84 H 05/08/19 08:16 78 178/84 H 05/08/19 00:00 97.8 F 73 18 155/78 H 98 Date Exam was Performed: 05/08/19 Time Exam was Performed: 09:57 - Problem List & Annotations (1) Acute exacerbation of congestive heart failure SNOMED Code(s): 682821110, 16687276326379 Code(s): I50.9 - HEART FAILURE, UNSPECIFIED Status: Acute Current Visit: Yes Qualifiers: Heart failure type: unspecified Qualified Code(s): I50.9 - Heart failure, unspecified (2) Exacerbation of asthma SNOMED Code(s): 386106825 Code(s): J45.901 - UNSPECIFIED ASTHMA WITH (ACUTE) EXACERBATION Status: Acute Current Visit: Yes Qualifiers: Asthma severity: moderate Asthma persistence: persistent Qualified Code(s ): J45.41 - Moderate persistent asthma with (acute) exacerbation (3) Pneumonia SNOMED Code(s): 734783723 Code(s): J18.9 - PNEUMONIA, UNSPECIFIED ORGANISM Status: Acute Current Visit: Yes Qualifiers: Pneumonia type: due to unspecified organism Laterality: bilateral Lung location: lower lobe of lung Qualified Code(s): J18.9 - Pneumonia, unspecified organism (4) Respiratory distress SNOMED Code(s): 635049395 Code(s): R06.03 - ACUTE RESPIRATORY DISTRESS Status: Acute Current Visit : Yes (5) CKD (chronic kidney disease), stage III SNOMED Code(s): 360616988 Code(s): N18.3 - CHRONIC KIDNEY DISEASE, STAGE 3 (MODERATE) Status: Acute Current Visit: No Annotation/Comment:: Baseline creatinine is 1.4 range which is where she was here. Continue to monitor. (6) Palliative care status SNOMED Code(s): 496939952 Code(s): Z51.5 - ENCOUNTER FOR PALLIATIVE CARE Status: Acute Current Visit: No (7) Hyponatremia SNOMED Code(s): 30293058 Code(s): E87.1 - HYPO-OSMOLALITY AND HYPONATREMIA Status: Acute Current Visit: Yes - Problem List Review Problem List Initiated/Reviewed/Updated: Yes - My Orders Last 24 Hours: My Active Orders 05/07/19 09:00 Furosemide [Lasix] 40 mg PO DAILY 05/07/19 17:40 Insulin Lispro [HumaLOG] See Protocol SUBCUT QIDACANDBED 05/07/19 17:45 Accu Check [Blood Glucose Check, Bedside] [RC] QIDACANDBED 05/07/19 Lunch Consistent Carbohydrate Diet [DIET] 05/08/19 08:00 predniSONE 40 mg PO WITHBREAKFAST 05/09/19 06:00 INR,PT,PROTHROMBIN TIME [COAG] DAILY 05/10/19 06:00 INR,PT,PROTHROMBIN TIME [COAG] DAILY 05/11/19 06:00 INR,PT,PROTHROMBIN TIME [COAG] DAILY 05/12/19 06:00 INR,PT,PROTHROMBIN TIME [COAG] DAILY - Plan Plan:: 1. Transfer back to [facility] on 20 mg of prednisone a day for 5 days, Augmentin and increasing Lasix to 40 mg a day. Reviewed the CT scan report and I believe the patient is doing well and maybe got confused because she felt disoriented and his place. Which would not be surprising at her age.
--- NOTE | 2019-05-08 10:12 | PCM.DCSUM1 ---
Discharge Summary - Hospital Course Free Text/Narrative:: Hospital course-patient was on BiPAP in the emergency room because she was a DNR they did not intubate. By the time she had to the floor she was on O2. CT scan of the chest showed no PE but CHF, pneumonia. She has history of asthma which is probably exacerbated. She is placed on steroids Solu-Medrol initially and then 40 mg of prednisone a day, Zosyn and duoneb treatments. The patient was on oxygen within 2 days was completely off the oxygen. Her lungs were for very wheezy to be in very clear. Her cranial is a little elevated and that stayed that way. She is a little anemic. Patient is unable to walk but that's normal for her. We did have a catheter and displacement admitting doctor because of the Lasix was initially given IV and she refuses taken out in the we attempted day 2. 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 She try to get up by herself which she normally doesn't do at home. She has assist. She felt a little confused and was evaluated by the ER doctor had a CT of the head showed old infarct in a EKG that showed left bundle branch block. By the time I saw her she looked a little anxious but was doing well. I believe this is more likely anxiety from confusion. Brief History: This is a very pleasant 83-year-old female patient states she got acutely short of breath this morning and was brought over here by ambulance. She said last weekend which is about a week ago she started getting a cold with nasal congestion and a productive cough. The clinic call over doxycycline and prednisone. Over the week she seemed to get worse and he last night started having shortness of breath and got worse today and was seen in the ER. In the ER they put her on BiPAP for a while gave her some Lasix and she got better. They did a CT scan that showed pulmonary vascular congestion and pneumonia. She did have a flu shot this year. She denies fevers, chills, runny nose or congestion at this time per she has no ear pain, sore throat. She does have wheezing and little shortness of breath. She is much better and oxygen. She says she's a 6 out of 10 from she normally feels. Diagnosis: Stroke: No - Discharge Data Discharge Date: 05/08/19 Discharge Disposition: DC/Tfer to [facility] Condition: Good - Referral to Home Health Primary Care Physician: Esteban Fink MD - Discharge Diagnosis/Problem(s) (1) Acute exacerbation of congestive heart failure SNOMED Code(s): 532726875, 57441119586598 ICD Code: I50.9 - HEART FAILURE, UNSPECIFIED Status: Acute Current Visit : Yes Qualifiers: Heart failure type: unspecified Qualified Code(s): I50.9 - Heart failure, unspecified (2) Exacerbation of asthma SNOMED Code(s): 462215123 ICD Code: J45.901 - UNSPECIFIED ASTHMA WITH (ACUTE) EXACERBATION Status: Acute Current Visit: Yes Qualifiers: Asthma severity: moderate Asthma persistence: persistent Qualified Code(s ): J45.41 - Moderate persistent asthma with (acute) exacerbation (3) Pneumonia SNOMED Code(s): 367165582 ICD Code: J18.9 - PNEUMONIA, UNSPECIFIED ORGANISM Status: Acute Current Visit: Yes Qualifiers: Pneumonia type: due to unspecified organism Laterality: bilateral Lung location: lower lobe of lung Qualified Code(s): J18.9 - Pneumonia, unspecified organism (4) Respiratory distress SNOMED Code(s): 301875371 ICD Code: R06.03 - ACUTE RESPIRATORY DISTRESS Status: Acute Current Visit : Yes (5) CKD (chronic kidney disease), stage III SNOMED Code(s): 660166705 ICD Code: N18.3 - CHRONIC KIDNEY DISEASE, STAGE 3 (MODERATE) Status: Acute Current Visit: No Problem Details: Baseline creatinine is 1.4 range which is where she was here. Continue to monitor. (6) Palliative care status SNOMED Code(s): 971012259 ICD Code: Z51.5 - ENCOUNTER FOR PALLIATIVE CARE Status: Acute Current Visit: No (7) Hyponatremia SNOMED Code(s): 31102689 ICD Code: E87.1 - HYPO-OSMOLALITY AND HYPONATREMIA Status: Acute Current Visit: Yes - Patient Instructions Diet: Diabetic Diet Activity, Other: Wheelchair Driving: Do Not Drive Showering/Bathing: May Shower - Discharge Plan *PRESCRIPTION DRUG MONITORING PROGRAM REVIEWED*: No *COPY OF PRESCRIPTION DRUG MONITORING REPORT IN PATIENT MAG: Not Applicable Prescriptions/Med Rec: Albuterol/Ipratropium [DuoNeb 3.0-0.5 MG/3 ML] 3 ml INH QIDRT PRN #120 neb PRN Reason: Dyspnea Amoxicillin/Clavulanate K [Augmentin 500-125 MG] 1 tab PO TID #30 tab Furosemide [Lasix] 40 mg PO DAILY #30 tablet Home Medications: Home Meds Triamcinolone Acetonide [Kenalog 0.1% Crm] 1 applic TOP BID PRN 02/16/13 [ History] Warfarin [Coumadin] 2.5 mg PO SUTUWETHSA 02/09/14 [History] Levothyroxine [Synthroid] 88 mcg PO SUTUWETHSA 09/01/16 [History] Ferrous Gluconate 324 mg PO DAILY@1200 04/28/17 [History] Budesonide [Pulmicort] 0.5 mg IH BID 10/02/17 [History] Warfarin [Coumadin] 5 mg PO MOFR 10/02/17 [History] carvediloL [Carvedilol] 3.125 mg PO BIDMEALS 10/02/17 [History] Acetaminophen [Tylenol] 650 mg PO BEDTIME 05/06/19 [History] Acetaminophen [Tylenol] 650 mg PO Q4H PRN 05/06/19 [History] Alum Hydrox/Mag Hydrox/Simeth [Maalox Advanced] 10 ml PO ASDIRECTED PRN [History] Benzonatate 100 mg PO TID PRN 05/06/19 [History] Calcium Carbonate/Vitamin D3 [Calcium 600-Vit D3 400 Tablet] 1 tab PO BID [History] Carboxymethylcellulose Sodium [Artificial Tears] 1 drop EYEBOTH BID PRN [History] Docusate Sodium 100 mg PO Q48H 05/06/19 [History] Ketotifen Fumarate [Zaditor] 1 drop EYEBOTH BID PRN 05/06/19 [History] Levothyroxine [Synthroid] 176 mcg PO MOFR 05/06/19 [History] Lisinopril [Zestril] 5 mg PO DAILY 05/06/19 [History] Magnesium Oxide [Magnesium] 400 mg PO DAILY 05/06/19 [History] Multivit-Min/FA/Lycopene/Lut [Senior Tabs] 1 tab PO DAILY 05/06/19 [History] Nystatin 1 applic TOP BID PRN 05/06/19 [History] Omeprazole 20 mg PO DAILY 05/06/19 [History] Rosuvastatin [Crestor] 5 mg PO DAILY 05/06/19 [History] Sodium Chloride [Saline Nasal [place]] 1 spray NASBOTH BID 05/06/19 [History] Sodium Chloride [Saline Nasal [place]] 1 spray NASBOTH BID PRN 05/06/19 [History] guaiFENesin [Tussin] 200 mg PO Q4H 05/06/19 [History] metFORMIN HCl [Glucophage] 500 mg PO BIDMEALS 05/06/19 [History] Albuterol/Ipratropium [DuoNeb 3.0-0.5 MG/3 ML] 3 ml INH QIDRT PRN #120 neb 05/08 [Rx] Amoxicillin/Clavulanate K [Augmentin 500-125 MG] 1 tab PO TID #30 tab 05/08/19 [ Rx] Furosemide [Lasix] 40 mg PO DAILY #30 tablet 05/08/19 [Rx] predniSONE [Prednisone] 40 mg PO DAILY #5 05/08/19 [Rx] Patient Handouts: Type 2 Diabetes Mellitus, Diagnosis, Adult, Fall Prevention in Hospitals, Adult, Venous Thromboembolism Prevention, Community-Acquired Pneumonia, Adult, Oxvc-ag-Qqrk Forms: ED Department Discharge Referrals: Esteban Fink MD [Primary Care Provider] - - Discharge Summary/Plan Comment DC Time >30 min.: No - Patient Data Vitals - Most Recent: Last Vital Signs Temp 97.8 F 05/08/19 00:00 Pulse 78 05/08/19 08:40 Resp 18 05/08/19 00:00 BP 178/84 H 05/08/19 08:17 Pulse Ox 98 05/08/19 00:00 Weight - Most Recent: 168 lb 14.4 oz I&O - Last 24 hours: Intake & Output 05/07/19 05/08/19 05/08/19 22:59 06:59 14:59 Intake Total 700 150 Output Total 550 275 Balance 150 -125 Lab Results - Last 24 hrs: Laboratory Results - last 24 hr 05/07/19 05/07/19 05/08/19 Range/Units 17:10 20:04 05:29 PT (8.7-11.1) INR (0.89-1.13) Sodium (135-145) mmol/L Potassium (3.5-5.3) mmol/L Chloride (100-110) mmol/L Carbon Dioxide (21-32) mmol/L BUN (7-18) mg/dL Creatinine (0.55-1.02) mg/dL Est Cr Clr Drug Dosing mL/min Estimated GFR (MDRD) (>60) BUN/Creatinine Ratio (9-20) Glucose (80-116) mg/dL POC Glucose 367 H D 301 H 224 H (80-116) mg/dL Calcium (8.6-10.2) mg/dL 05/08/19 05/08/19 Range/Units 07:10 07:10 PT 32.0 H (8.7-11.1) INR 3.34 H (0.89-1.13) Sodium 134 L (135-145) mmol/L Potassium 4.5 (3.5-5.3) mmol/L Chloride 97 L (100-110) mmol/L Carbon Dioxide 26 (21-32) mmol/L BUN 45 H (7-18) mg/dL Creatinine 1.7 H (0.55-1.02) mg/dL Est Cr Clr Drug Dosing 18.26 mL/min Estimated GFR (MDRD) 29 L (>60) BUN/Creatinine Ratio 26.5 H (9-20) Glucose 236 H (80-116) mg/dL POC Glucose (80-116) mg/dL Calcium 9.2 (8.6-10.2) mg/dL TEDDY Results - Last 24 hrs: Microbiology 05/06/19 07:40 Aerobic Blood Culture - Preliminary Blood - Venous - Lab Draw NO GROWTH AFTER 2 DAYS Anaerobic Blood Culture - Preliminary NO GROWTH AFTER 2 DAYS 05/06/19 07:30 Aerobic Blood Culture - Preliminary Blood - Venous NO GROWTH AFTER 2 DAYS Anaerobic Blood Culture - Preliminary NO GROWTH AFTER 2 DAYS Med Orders - Current: Current Medications Acetaminophen (Tylenol) 650 mg PO Q4H PRN PRN Reason: Pain/Fever Albuterol (Proventil Neb Soln) 2.5 mg NEB Q2H PRN PRN Reason: Shortness Of Breath/wheezing Albuterol/Ipratropium (Duoneb 3.0-0.5 Mg/3 Ml) 3 ml INH QIDRT [facility] Last Admin: 05/07/19 20:00 Dose: 3 ml Benzonatate (Tessalon Perles) 100 mg PO TID PRN PRN Reason: Cough Budesonide (Pulmicort) 0.5 mg NEB BID [facility] Last Admin: 05/08/19 08:40 Dose: 0.5 mg Carvedilol (Coreg) 3.125 mg PO BIDMEALS [facility] Last Admin: 05/08/19 08:16 Dose: 3.125 mg Docusate Sodium (Colace) 100 mg PO Q48H [facility] Last Admin: 05/06/19 13:07 Dose: 100 mg Furosemide (Lasix) 40 mg PO DAILY [facility] Last Admin: 05/08/19 08:23 Dose: 40 mg Insulin Human Lispro (Humalog) 0 unit SUBCUT QIDACANDBED [facility]; Protocol Last Admin: 05/08/19 08:15 Dose: 2 units Levothyroxine Sodium (Synthroid) 88 mcg PO SUTUWETHSA [facility] Last Admin: 05/08/19 05:17 Dose: 88 mcg Levothyroxine Sodium (Synthroid) 176 mcg PO MoFr@0600 [facility] Last Admin: 05/06/19 16:33 Dose: 176 mcg Lisinopril (Prinivil) 5 mg PO DAILY [facility] Last Admin: 05/08/19 08:17 Dose: 5 mg Magnesium Oxide (Magnesium Oxide) 400 mg PO DAILY [facility] Last Admin: 05/08/19 08:18 Dose: 400 mg Metformin HCl (Glucophage) 500 mg PO BIDMEALS [facility] Methylprednisolone Sodium Succinate (Solu-Medrol) 60 mg IVPUSH Q6H [facility] Last Admin: 05/08/19 05:17 Dose: 60 mg Pantoprazole Sodium (Protonix) 40 mg PO DAILY [facility] Last Admin: 05/08/19 08:23 Dose: 40 mg Prednisone (Prednisone) 40 mg PO WITHBREAKFAST [facility] Last Admin: 05/08/19 08:38 Dose: 40 mg Rosuvastatin Calcium (Crestor) 5 mg PO DAILY [facility] Last Admin: 05/08/19 08:19 Dose: 5 mg Sodium Chloride (Saline Flush) 10 ml FLUSH ASDIRECTED PRN PRN Reason: Keep Vein Open Last Admin: 05/08/19 05:18 Dose: 10 ml Discontinued Medications Albuterol/Ipratropium (Duoneb 3.0-0.5 Mg/3 Ml) 3 ml NEB ONETIME ONE Stop: 05/06/19 07:22 Last Admin: 05/06/19 07:42 Dose: 3 ml Dexamethasone (Dexamethasone) 10 mg IVPUSH ONETIME ONE Stop: 05/06/19 07:22 Last Admin: 05/06/19 07:43 Dose: 10 mg Furosemide (Lasix) 40 mg IVPUSH NOW ONE Stop: 05/06/19 07:15 Last Admin: 05/06/19 07:53 Dose: 40 mg Furosemide (Lasix) 40 mg IVPUSH DAILY [facility] Piperacillin Sod/Tazobactam (Sod 3.375 gm/ Sodium Chloride) 50 mls @ 100 mls/ hr IV .ONCE ONE Stop: 05/06/19 09:46 Last Admin: 05/06/19 09:25 Dose: 100 mls/hr Piperacillin Sod/Tazobactam (Sod 3.375 gm/ Sodium Chloride) 50 mls @ 100 mls/ hr IV Q6H [facility] Last Admin: 05/07/19 04:36 Dose: 100 mls/hr Iopamidol (Isovue-370 (76%)) 100 ml IV . DIRECTED ONE Stop: 05/06/19 08:28 Last Admin: 05/06/19 08:33 Dose: 66 ml Labetalol HCl (Normodyne) 10 mg IVPUSH ONETIME ONE; Protocol Stop: 05/06/19 08:01 Last Admin: 05/06/19 08:00 Dose: 10 mg Warfarin Sodium (Coumadin Sliding Scale) 1 each PO ASDIRECTED [place] *Q Meaningful Use (DIS) - VTE *Q VTE Pharmacological Contraindications *Q: High INR Value
[2019-05-08 14:06] VITALS: PULSE 84
[2019-05-08] MEDS: Docusate Sodium 100 MG Cap PO SCH (14:53)
== END 2019-05-08 10:45 | DRG 291 ==
LOC: FB.ED 07:02 → FB.MS 09:25
PROVIDERS: ADMIT Family Medicine; ATTEND Family Medicine
DX: I13.0 Hypertensive heart and chronic kidney disease with heart failure and stage 1 through stage 4 chronic kidney disease, or unspecified chronic kidney disease (principal); J45.901 Unspecified asthma with (acute) exacerbation; I11.0 Hypertensive heart disease with heart failure; J18.9 Pneumonia, unspecified organism; J45.41 Moderate persistent asthma with (acute) exacerbation; Z95.2 Presence of prosthetic heart valve; E87.1 Hypo-osmolality and hyponatremia; I50.9 Heart failure, unspecified; K57.90 Diverticulosis of intestine, part unspecified, without perforation or abscess without bleeding; R32 Unspecified urinary incontinence; N18.3 Chronic kidney disease, stage 3 (moderate); Z51.5 Encounter for palliative care; E11.9 Type 2 diabetes mellitus without complications; E03.9 Hypothyroidism, unspecified; Z66 Do not resuscitate; Z98.49 Cataract extraction status, unspecified eye; Z90.49 Acquired absence of other specified parts of digestive tract; Z90.710 Acquired absence of both cervix and uterus; Z90.721 Acquired absence of ovaries, unilateral; R20.0 Anesthesia of skin; E11.22 Type 2 diabetes mellitus with diabetic chronic kidney disease; M19.90 Unspecified osteoarthritis, unspecified site; D64.9 Anemia, unspecified; Z79.51 Long term (current) use of inhaled steroids; K21.9 Gastro-esophageal reflux disease without esophagitis; E66.9 Obesity, unspecified; E78.00 Pure hypercholesterolemia, unspecified; Z79.01 Long term (current) use of anticoagulants; Z88.1 Allergy status to other antibiotic agents; Z79.890 Hormone replacement therapy; Z79.899 Other long term (current) drug therapy; Z79.52 Long term (current) use of systemic steroids; Z86.73 Personal history of transient ischemic attack (TIA), and cerebral infarction without residual deficits; Z86.718 Personal history of other venous thrombosis and embolism; Z79.84 Long term (current) use of oral hypoglycemic drugs; Z68.31 Body mass index [BMI] 31.0-31.9, adult
CPT/HCPCS: 36415; 71045; 71275; 80053; 81001; 82803; 83605; 83880; 84484; 85025; 85379; 85610; 85730; 87040 ×2; 87804 ×2; 93005; 94640; 94660; J1100; J1940; Q9967; 70450; 80048; 82962; 93010; 94760; 96374; 96375; 99285; 99285-25; A9270-GY; J1815; J2543; J2930; J7050; J7620-GY